=== PATIENT | male | born 1960 ===

== ENCOUNTER 2018-09-14 07:03 | Inpatient (IN) | payer OTHER ==
[~2018-09-14] VITALS: Ht 185.4 cm; Wt 101.2 kg
[2018-09-14] VITALS (15 sets, daily range): BP systolic 102–130; BP diastolic 56–77
[~2018-09-14 07:03] MED LIST: AMBIEN10 MG ORAL; MICARDIS HCT 81 EACH ORAL; PAXIL40 MG ORAL; VICODIN ES 7.51 EAC1 ORAL; ZOCOR40 MG ORAL; ceFAZolin sod 1 GM in NS 55 ML IVPB ONE
[2018-09-14] MEDS ORDERED: Thrombin 5000 units TOPIC ONE ×4 (09:00→13:56)
[2018-09-14] MEDS ORDERED: LR 1000ml ONE (09:00)
[2018-09-14] MEDS ORDERED: Gelfoam Size TOPIC ONE ×2 (09:00→11:13)
[2018-09-14] MEDS ORDERED: Sterile Water Irrig 1000ml IRRIG ONE (09:00)
[2018-09-14] MEDS ORDERED: Bacitracin 50000 Units Vial ONE ×2 (09:00→11:13)
[2018-09-14] MEDS ORDERED: Bupivacaine w/Epi 0.5% 30ml Vial INJ ONE ×2 (09:00→11:13)
[2018-09-14] MEDS ORDERED: Zemuron 50mg/5ml Inj IV ONE (09:02)
[2018-09-14] MEDS ORDERED: Succinylcholine 20mg/ml 10ml vial ONE (09:03)
--- NOTE | 2018-09-14 09:12 | Pre-Procedure Note/Attestation ---
Pre-Procedure Note/Attestation Complete Prior to Procedure Procedure Narrative: L23 XLIF, PSF, Decompresssion/laminectomy, Hardware revision Indications for Procedure Pre-Operative Diagnosis: L23 HNP/discopathy Attestation I attest that I discussed the nature of the procedure; its benefits; risks and complications; and alternatives (and the risks and benefits of such alternatives ), prior to the procedure, with the patient (or the patient's legal sales representative jewelry). I attest that, if there was a reasonable possibility of needing a blood transfusion, the patient (or the patient's legal sales representative jewelry) was given the [facility] standardized written summary, pursuant to the [place] Blood Safety Act ([place] Health and Safety Code # 1645, as amended). I attest that I re-evaluated the patient just prior to the surgery and that there has been no change in the patient's H&P, except as documented below: Kaden Chavez MD Sep 14, 2018 09:12
--- NOTE | 2018-09-14 09:13 | Brief Operative Note ---
Immediate Post Operative Note Operative Note Pre-op Diagnosis: L23 HNP/discopathy Procedure: L23 XLIF, PSF, Decompresssion/laminectomy, Hardware revision Surgeon: addison Mat Puncher: marianela STORM Additional Surgeons: Pantera Velez Anesthesiologist: Kenny Anesthesia: general Specimen: yes Complications: none Condition: stable Fluids: 1100 Estimated Blood Loss: volume - 250 Drains: hemovac Implant(s) used?: Yes - dual lamina post fusion, RTI xlif Kaden Chavez MD Sep 14, 2018 09:13
[2018-09-14] MEDS ORDERED: LR 1000ml 1,000 ML IVLG SCH (09:14)
[2018-09-14] MEDS ORDERED: LORazepam Inj 2mg/ml 1ml IV PRN (09:15)
[2018-09-14] MEDS ORDERED: Meperidine 50mg/ml Inj(FOR RIGORS ONLY) IVP PRN (09:15)
[2018-09-14] MEDS ORDERED: Acetaminophen (Non formulary) 100 ML IV ONE (09:15)
[2018-09-14] MEDS ORDERED: Metoclopramide 10mg/2ml Inj IVP PRN (09:15)
[2018-09-14] MEDS ORDERED: fentaNYL 100 mcg/2 mL IV PRN (09:15)
[2018-09-14] MEDS ORDERED: oxyCODONE HCL/Acetaminophen 5/325mg ORAL PRN (09:15)
[2018-09-14] MEDS ORDERED: DiphenhydrAMINE 50mg/ml Inj IVP PRN (09:15)
[2018-09-14] MEDS ORDERED: Atropine Sulfate 0.4mg/ml inj IVP PRN (09:15)
[2018-09-14] MEDS ORDERED: HYDROcodone/Acetamin 5/325 tab ORAL PRN (09:15)
[2018-09-14] MEDS ORDERED: Ketorolac 30mg Inj IV PRN ×2 (09:15)
[2018-09-14] MEDS ORDERED: Midazolam 2mg/2ml Inj IVP PRN (09:15)
[2018-09-14] MEDS ORDERED: HYDROcodone/Acetamin 7.5/325 tab ORAL PRN (09:15)
[2018-09-14] MEDS ORDERED: Hydromorphone 0.5mg/0.5ml inj IVP PRN ×2 (09:15→17:45)
[2018-09-14] MEDS ORDERED: NS Irrig 1000ml IRRIG ONE ×2 (09:16→14:22)
--- NOTE | 2018-09-14 09:22 | Anethesia Preoperative Eval ---
Anesthesia Pre-op PMH/ROS General Date of Evaluation: Sep 14, 2018 Time of Evaluation: 09:11 Anesthesiologist: Uziel ASA Score: ASA 3 Mallampati Score Class I : Soft palate, uvula, fauces, pillars visible Class II: Soft palate, uvula, fauces visible Class III: Soft palate, base of uvula visible Class IV: Only hard plate visible Mallampati Classification: Class II Surgeon: Scott Diagnosis: Back Pain Surgical Procedure: XLIF L2-3, PSF L2-4, instrutrumentation Anesthesia History: none Family History: no anesthesia problems Allergies: Coded Allergies: AMMONIUM CHLORIDE (Verified Allergy, Mild, 09/14/18) LIGHT HEADED Uncoded Allergies: AMMONIA (Adverse Reaction, Severe, 09/14/18) WEAKNESS AND LIGHT HEADED Medications: see eMAR Patient NPO?: Yes NPO Date: Sep 13, 2018 NPO Time: 2100 Past Medical History Cardiovascular: Reports: HTN, other - HL Pulmonary: Reports: KAN Endocrine: Reports: DM Other: obesity - BMI 31 PSxH Narrative: Cervical, Thoracic, Lumbar Spine SX-Multiple, Umbilical Hernia Repair, L Shoulder Replacement, Bilateral Knee SX Anesthesia Pre-op Phys. Exam Physician Exam Last Vital Signs Date Time Temp Pulse Resp B/P (MAP) Pulse Ox O2 Delivery O2 Flow Rate FiO2 09/14/18 07:55 Room Air 09/14/18 07:50 97.3 67 20 122/77 (92) 96 Constitutional: NAD Neurologic: CN 2-12 intact Cardiovascular: RRR Respiratory: CTA Gastrointestinal: S/NT/ND Airway Exam Mallampati Score: Class II MO: full ROM: limited Teeth: intact Anesthesia Pre-op A/P Risk Assessment & Plan Assessment: ASA 3 Plan: GA, SED, Glidescope Go Status Change Before Surgery: No Pre-Antibiotics Dru grams Ancef IV Given Within 1 Hr of Incision: Yes Time Given: 09:46 Silverio Triplett MD Sep 14, 2018 09:22
[2018-09-14] MEDS ORDERED: Lidocaine 1% MPF 10mg/ml 5ml ONE (09:23)
[2018-09-14] MEDS ORDERED: Ketamine 500mg Inj ONE (09:23)
[2018-09-14] MEDS ORDERED: Sodium Chloride 10ml vial INJ ONE (09:23)
[2018-09-14] MEDS ORDERED: fentaNYL 100 mcg/2 mL IV ONE ×3 (09:23→15:09)
[2018-09-14] MEDS ORDERED: Lidocaine 1% Plain 30 ml INJ ONE ×2 (09:41→13:28)
[2018-09-14] MEDS ORDERED: Propofol 1,000mg/ 100ml btl IV ONE (10:00)
[2018-09-14] MEDS ORDERED: Vancomycin 1gm vial IVPB ONE (14:55)
--- NOTE | 2018-09-14 15:45 | Diagnostic Imaging Report ---
INDICATION: Pain, intraoperative, left lower extremity pain TECHNIQUE: Intraoperative imaging Fluoroscopy time: 46.5 seconds Total dose: 0.95699 mGym2 Total number of images: 6 9 COMPARISON: None FINDINGS: Sales Apprentice images demonstrate posterior fusion hardware bridging what are presumably L3 and L4, anterior fusion hardware at L3-4, L4-5, L5-S1. Subsequent images demonstrate removal of the posterior hardware and placement of an interspinous fusion device at L2-3, placement of disc hardware at L2-3 IMPRESSION: Intraoperative imaging, as described
--- NOTE | 2018-09-14 16:10 | Immediate Post-Op Evaluation ---
Immediate Post-Op Evalulation Immediate Post-Op Evalulation Procedure: XLIF L2-3, PSF L2-3, Instruments Date of Evaluation: Sep 14, 2018 Time of Evaluation: 16:20 IV Fluids: 1100 LR Blood Products: 0 Estimated Blood Loss: 200 Urinary Output: 250 Blood Pressure Systolic: 111 Blood Pressure Diastolic: 58 Pulse Rate: 83 Respiratory Rate: 16 O2 Sat by Pulse Oximetry: 98 Temperature (Fahrenheit): 97.3 Pain Score (1-10): 2 Nausea: No Vomiting: No Complications 0 Patient Status: awake, reacts, patent, extubated, none Hydration Status: adequate Dru Grams Ancef IV Given Within 1 Hr of Incision: Yes Time Given: 09:46 Silverio Triplett MD Sep 14, 2018 16:10
--- NOTE | 2018-09-14 17:15 | NUR ---
NURSE NOTES:RECEIVED FR. PACU S/P ELECTIVE BACK SURGERY,A/OX4,MOVING ALL EXTREMITIES,BACK DRSNG C/D/I.HEMOVAC DRAINING S/S,SANDERS INTACT WITH YELLOW URINE,IV SITE INTACT,O2 AT 2LITERS N/C.PLAN OF CARE DISCUSSED WITH UNDERSTANDING.
[2018-09-14] MEDS: Docusate 100mg cap ORAL SCH (18:00)
[2018-09-14] MEDS: ceFAZolin 1gm in D5W 55ml IVP SCH (18:52)
[2018-09-14] MEDS: D5 1/2NS 1,000 ML IV SCH (18:52)
--- NOTE | 2018-09-14 19:30 | NUR ---
HAND-OFF: Report given to [].
--- NOTE | 2018-09-14 19:30 | NUR ---
HAND-OFF: Report given to RAVIN ARENAS.
--- NOTE | 2018-09-14 20:02 | Operative Note - Dictated ---
DATE OF OPERATION: 09/14/2018 CO-SURGEONS: 1. González Velez M.D. (for the approach). 2. Kaden Chavez M.D. (for the spine procedure). ANESTHESIOLOGIST: Silverio Triplett M.D. ANESTHESIA: General endotracheal. PREOPERATIVE DIAGNOSIS: 1. Disk disease, L2-L3 (1 interspace). 2. Status post multiple previous lumbar spine surgeries. POSTOPERATIVE DIAGNOSES: 1. Disk disease, L2-L3 (1 interspace). 2. Status post multiple previous lumbar spine surgeries. OPERATIVE PROCEDURE: 1. Muscle-sparing extraperitoneal extreme lateral interbody fusion, L2-L3 (1 interspace) Right Lateral Approach. 2. Transpsoas exposure of the lateral surface of the spine at L2-L3. 3. Mobilization of right diaphragm. 4. Resection of the right eleventh rib. INFORMED CONSENT: The procedure of access for an extreme lateral interbody fusion was explained in detail to the patient preoperatively via the phone and repeated in the preoperative holding area by myself and Dr. Chavez. The risks including hemorrhage, infection, ureteral injury, visceral injury, nerve injury, and pneumothorax were explained. The patient stated that he understood the procedure, its rationale, and risks. He had no further questions and accepted the procedure as outlined above. BACKGROUND INFORMATION: Indications for surgery, description of operative findings, and specimens removed will be contained in Dr. Chavez's operative report. OPERATIVE FINDINGS PERTINENT TO THE ACCESS: All retroperitoneal structures were normal. DESCRIPTION OF PROCEDURE: The patient was brought to the operating room in stable condition. Monitoring was instituted with arterial line, ECG, O2 saturation monitor, and blood pressure cuff. A right foot pulse oximeter was placed to monitor circulation to the right lower extremity. The patient was induced anesthesia without any difficulty. The patient was placed in the left lateral decubitus position for a right lateral incision. The patient was prepared and draped in sterile fashion. Under fluoroscopic guidance, the level of the L2-L3 disk was marked on the skin. A transverse incision was made at the appropriate level as determined by fluoroscopy. The subcutaneous tissue was divided using electrocautery. The fascia of the latissimus dorsi and external oblique muscles was incised with cautery. Using a muscle-sparing technique, the fibers of the latissimus dorsi, external and internal oblique muscles were in the direction of their fibers. The right eleventh rib was resected subperiosteally and saved for graft material. The transversus abdominis fibers were in similar fashion. The transversalis fascia was entered without any difficulty revealing the extraperitoneal space and diaphragmatic fibers. The diaphragmatic fibers were bluntly from the lateral abdominal and chest wall. Using blunt dissection, the quadratus lumborum muscle was palpated and the psoas muscle was identified. The approach was well below the diaphragm and there was no concern of pneumothorax. Once the dissection was completed and the quadratus lumborum and psoas muscles were identified, the fibers of the psoas muscle were using a muscle-sparing technique. The disk was identified. Using neural monitoring to confirm that there were no nerves in the immediate area, a K-wire was inserted into the disk. Using the dilator system with neural monitoring, the appropriate access to the L2-L3 disk was created. The retractor system was deployed over the dilators. Under fluoroscopic guidance, the midportion of the disk and the appropriate level were confirmed. Neural monitoring was used and showed no nerves in proximity to the area. Once the system was deployed, Dr. Chavez proceeded to perform the diskectomy, partial vertebrectomy, and fusion using the appropriate technique and hardware. Once this was completed, the retractor system was removed. Inspection was carried out for hemostasis while gradually removing the retractor system. Once the retractor system was removed, the peritoneum came back to its normal anatomic position. The muscle layers came back to their normal anatomic position from the psoas muscle until the external oblique and latissimus dorsi muscles superficially. There was no indication of pneumothorax. The muscle layers were closed with a continuous suture of #1 PDS II for the diaphragmatic fibers and the muscle layers. A subcutaneous/subdermal closure with a continuous suture of 2-0 Vicryl was accomplished. The skin was closed in a subcuticular fashion. Steri-Strips and a sterile dressing were applied. Estimated blood loss was minimal and less than 30 mL. Manual and visual sweeps were correct. Final sponge, needle, and instrument counts were verified as correct x2. Breath sounds were excellent bilaterally. The patient remained in the operating room, under anesthesia, in stable condition for the posterior portion of the procedure. The foot pulse oximeter showed 100% oxygen saturation with normal triphasic waveform consistent with preoperative baseline. Dorsalis pedis and posterior tibial pulses were +2 bilaterally symmetrical. González Velez M.D. DR: Phyllis JOB#: [id number] CC: Kaden Chavez M.D.; Fax#: [phone] [facility]
[2018-09-14] MEDS ORDERED: Chloraseptic Spray 20mL Bottle ORAL PRN (21:00)
[2018-09-14] MEDS ORDERED: Zolpidem 5mg tab ORAL PRN ×2 (21:00→21:15)
[2018-09-14] MEDS ORDERED: HYDROmorphone 1mg/ml Carpuject SUBQ SCH (21:13)
--- NOTE | 2018-09-14 21:16 | Operative Note - Dictated ---
DATE OF OPERATION: 09/14/2018 SURGEON: Kaden Chavez M.D. CREDIT ASSESSMENT ANALYST: Bryce Arizmendi PA-C. ADDITIONAL SURGEON/CO-SURGEON: González Velez M.D. ANESTHESIOLOGIST: Silverio Triplett M.D. ANESTHESIA TYPE: General endotracheal anesthesia. PREOPERATIVE DIAGNOSIS: Status post prior fusion, L3 through S1, with catastrophic discogenic collapse, extrusion, and radiculopathy, L2-L3. OPERATION PERFORMED: 1. Extreme lateral interbody fusion, L2-L3, approach through right side. 2. Placement of structural PEEK (RTI) cage, L2-L3. 3. Use of local autograft. 4. Use of BMP. 5. Use of Signafuse allograft. 6. Use of fluoroscopy. INDICATIONS: The patient is very pleasant gentleman who previously underwent first L4-L5 and L5-S1 fusion and subsequently had hardware removal. He subsequently had catastrophic discogenic collapse at L3-L4, underwent prior XLIF/PSF several years ago and now the L2-L3 level has completely collapsed with a large disk extrusion at that level, asymmetric scoliosis at the L2-L3 level. Surgical options were discussed and he elected to proceed with surgical intervention. RISK NOTE: The patient was explained in detail risks and benefits of surgery to include but not be limited to those of bleeding, infection, damage to nerves/vessels/tendons, anesthetic risk, allergic reaction, aspiration, possibly . The patient understood and wished to proceed. OPERATIVE PROCEDURE IN DETAIL: The patient was taken to the operating suite. After general endotracheal anesthesia was obtained, Rawls catheter was placed. He was positioned right side-up lateral decubitus position. The lateral exposure will be dictated separately by Dr. Velez, the Cardiothoracic team. Once the lateral exposure had been completed and exposure of the L2-L3 level was achieved, dilators were put in place and retractor was put in place. The disk space was identified and with the use of a 10 blade, fenestration of the lateral anulus was performed. At this point, rotating frank, down-pushing curettes, endplate cuffs were used to remove additional disk fragments from inside the disk. An endplate Sanchez was then introduced all the way to the far end of the disk on the contralateral left side, which was completely collapsed. It was used to osteotomize the lateral osteophytes to allow for distraction on that side. Once complete diskectomy was achieved, the appropriate-sized PEEK cage measuring 9 mm in height, 6 degrees lordosis, and 50 mm in length was chosen. It was centrally packed with combination of BMP and Signafuse as well as autograft (harvested rib), which was harvested through the exposure. At this point, once the cage was chosen and a trial was put in and noted to have excellent fit. The actual implant was inserted and noted to have excellent positioning in both AP and lateral projections with excellent correction of the scoliosis. At this point, the bone graft was packed along the lateral aspect of the disk. Closure will be dictated separately by Dr. Velez. Sponge and needle counts were correct. Kaden Chavez M.D. DR: Vito JOB#: [id number] CC: MORELIA
[2018-09-14] MEDS ORDERED: PCA Education Pamphlet MISC ONE (21:30)
[2018-09-14] MEDS ORDERED: Rate Change PCA 1 Each MISC PRN (21:30)
[2018-09-14] MEDS ORDERED: ceFAZolin 1gm/50ml Premix 50 ML IV SCH (22:00)
--- NOTE | 2018-09-14 22:00 | NUR ---
NURSE NOTES: MD saw patient. New orders placed. COMMERCIAL SALES SPECIALIST morphine ordered 07/16/19, with a one time Dilaudid injection. Patient given instruction packet regarding COMMERCIAL SALES SPECIALIST use. RN gave demonstration for use.
[2018-09-14] MEDS: Atorvastatin 20mg tab ORAL SCH (22:06)
[2018-09-14] MEDS: PCA Morphine 1mg/ml 30 ML IV PRN (22:32)
--- NOTE | 2018-09-14 22:45 | Operative Note - Dictated ---
DATE OF OPERATION: 09/14/2018 SURGEON: Kaden Chavez M.D. PREOPERATIVE DIAGNOSES: Status post prior fusion, L3 through S1 with catastrophic disk collapse at L2-L3 resulting in disk extrusion, left lower extremity radiculopathy, and status post XLIF procedure, L2-L3. POSTOPERATIVE DIAGNOSES: Status post prior fusion L3 through S1 with catastrophic disk collapse at L2-L3 resulting in disk extrusion, left lower extremity radiculopathy, and status post XLIF procedure, L2-L3. PROCEDURES: 1. Wide and radical laminectomy, left side, redo performed through scarred and altered anatomy, L2-L3. 2. Thorough diskectomy and decompression of nerve root and neurolysis, L2-L3, left side. 3. Removal of hardware, L3-L4 pedicle screws (Alphatec). 4. Posterior spinal fusion, L2-L3. 5. Interspinous nonsegmental fixation, L2-L3. 6. Use of operating microscope. 7. Neurodiagnostic monitoring. 8. Use of fluoroscopy. TOTAL FLUIDS: 1100. ESTIMATED BLOOD LOSS: 250. DRAINS: Hemovac drain was placed. INDICATIONS: The patient is a 57-year-old with extensive problems with his lower back, status post prior fusion with an XLIF performed earlier in the day, requiring a decompression, left L2-L3 and posterior fusion to back up his XLIF. The patient understood and wished to proceed. RISK NOTE: The patient was explained in detail risks, benefits of surgery to include, but not be limited to those of bleeding, infection, damage to nerves, vessels, tendons, anesthetic risk, allergic reaction, aspiration, and possibly . The patient understood and wished to proceed. OPERATIVE PROCEDURE IN DETAIL: The patient was taken to the operative suite. Under the benefits of general anesthesia, the patient was turned from a lateral position into a prone position onto a Ed frame. All bony prominences were well padded. The back was prepped and draped in the usual sterile fashion. Prior incision was identified and infiltrated with Marcaine with epinephrine. The incision was extended incorporating the top one-third of the prior incision as well as an additional inch and a half. Incision was sharply carried down through the subcutaneous. Subperiosteal dissection was carried out at L2-L3. Care was taken to identify the screw heads at L3 and L4 through an oblique approach to the screw heads. Self-retaining retractors were put into place. The screw heads were then systematically disengaged from the chrystal. The rods were removed, and the screws were backed out without complication first on the left, then on the right at L3 and L4 bilaterally. This area was then irrigated and packed off. Attention was then turned to the left side. There was noted to be a remnant of the spinous process at L3. Initially, the plan was to place new pedicle screws at L2 and L3. However, due to hypoplastic pedicles, and the presence of a spinous process at L3 and L2, we decided to place interspinous fixation rather than new pedicle screw fixation. At this point, the right side was first addressed. All bony landmarks were then drilled and denuded of soft tissue. The facet joint was then drilled out. This area was packed off after being irrigated and attention was then turned to the left side. At this point, in a similar fashion, soft tissue was removed off of the lamina of L2 and L3 as well as the facet joint. High-speed drill was used to perform laminectomy at L2 and superior portion of L3 as well as a very significant medial facetectomy. At this point, the ligamentum flavum was removed in a piecemeal fashion. The dura, which was highly compressed and the area was markedly aberrant in anatomy due to the exceedingly large disk herniation was gently retracted medially. After multiple passes, we were able to identify the scarified extruded disk fragment, which was removed in a piecemeal fashion. There was extensive soft tissue induration and a complete diskectomy could not be achieved; however, clearly the central compression as well as the left lateral compression was completely decompressed. We were able to then probe the neural foramen at L2-L3 without compromise. Copious irrigation was performed and FloSeal was performed. At this juncture, the interspinous fixation was chosen and 11 mm interspinous dual lamina fixation device was chosen and deployed after a bed of bone graft was delivered onto the right side as an onlay of the laminar region. The dual lamina was deployed and compressed with excellent bony purchase and fixation and was locked and torqued to the appropriate level. At this point, copious irrigation once again was performed. Additional bone graft was placed on the right side. FloSeal was applied. Meticulous hemostasis was achieved. Prior to closure, it was decided to place a medium-sized Hemovac drain deep to the fascia. Fascia was repaired using #1 Vicryl and subcutaneous closure using 2-0 Vicryl. Please note that both infra and suprafascial placement of vancomycin powder 1 g in total was applied. Sterile dressing was applied. At the time of this dictation, the patient was awaiting extubation. [facility] Vahid Chavez DR: KAM JOB#: [id number] CC:
--- NOTE | 2018-09-14 23:14 | NUR ---
NURSE NOTES: Report taken from JOHN Bermudez. Patient awake and in bed, A&Ox4. No signs of distress on 2L/hr NC. Surgical sites on Rt side and posterior, c/d/i. No further skin issues. IV site c/d/i and running IVF at 100mls/hr. Patient complains that he would like to advance diet, he has not eaten since the day prior before surgery, will contact MD. Hemovac c/d/i and draining serous fluid, continue to monitor. Bed in lowest position, call light within reach.
[2018-09-15] VITALS: BP 121/78
--- NOTE | 2018-09-15 01:00 | Consultation ---
DATE OF CONSULTATION: 09/15/2018 CONSULTING PHYSICIAN: Rishabh Knight M.D. REFERRING PHYSICIAN: Kaden Chavez M.D. REASON FOR CONSULTATION: Acute pain consult. HISTORY OF PRESENT ILLNESS: Dear Dr. Kaden Chavez, Thank you kindly for consulting me to evaluate and render an opinion as to how to proceed in the management of the patient's acute postoperative lumbar spine pain after his revision lumbar spine instrumentation surgery today. 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 Today, he underwent a revision lumbar spine fusion surgery with instrumentation and complained of severe 10/10 pain postoperatively. On your request, I saw the patient to help with his pain control. I performed a detailed history and physical examination. I spent over 75 minutes in consultation with an additional 30 minutes in medical record review. I spoke with the hospital pharmacist, Jeremy, along with yourself, Dr. Chavez and the charge nurse, along with the recovery room nurse. I reviewed multiple records from the patient's medical chart including utilization review and surgical authorization by Gene authorizing revision lumbar spine fusion surgery is authorized. Multiple records were reviewed including preoperative history and physical by Dr. Jamar Jennings in September 2018 along with diagnostic testing of laboratory studies, a 12-lead EKG, chest x-ray, and lumbar spine MRI. Multiple records were reviewed from today's date of surgery at [facility] including consent for surgical treatment, consent for anesthesia, consent for blood products, medication administration record, medication reconciliation order form, PACU record, PACU orders, anesthesia record, pre- and post anesthesia evaluation record, implant log, guidelines for prophylactic antibiotics, guidelines for DVT prophylaxis, Lilia for causing disability, postoperative spine surgical orders, and postoperative surgery report by Dr. Kaden Chavez. PAST MEDICAL HISTORY: 1. Acute postoperative lumbar spine pain, status post revision lumbar spine fusion surgery with instrumentation. Revision by Dr. Kaden Chavez in September 2018. 2. Work-related injury. 3. Multiple previous spinal orthopedic surgeries. 4. Borderline diabetes. 5. Hypercholesterolemia. 6. Chronic insomnia. 7. Depression. 8. Obstructive sleep apnea. 9. Questionable fatty liver. 10. Atrial enlargement. 11. Hypertension. MEDICATIONS AT HOME: Paxil, Ambien 10 mg, metformin, glipizide, and hydrochlorothiazide. The patient in the past has used oral morphine pills 15 mg instant release, Valium 5 mg pills, and Percocet 10 mg pills after his previous orthopedic surgery. The patient denies using any of these narcotics in the past 18 months. ALLERGIES: Ammonia and ammonium chloride. SOCIAL HISTORY: The patient lives with his Offspring, near [place]. 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 He denies tobacco or marijuana usage. He drinks alcohol minimally. FAMILY HISTORY: Noncontributory. REVIEW OF SYSTEMS: Per Dr. Jamar Jennings. PHYSICAL EXAMINATION: VITAL SIGNS: Age 57, height 185 cm, weight 103 kg, and body mass index 30. VITAL SIGNS: Shows pain level 7/10 on the visual analog pain scale. Afebrile, pulse 98, respirations 17, blood pressure 120/74, and oxygen saturation 95%. HEENT: Nasal cannula oxygen placed. Alert and oriented x3. Moving all extremities x4, 5/5 dorsiflexion, 5/5 plantar flexion in bilateral lower extremities. NEUROLOGIC: Detailed neurologic exam per Dr. Kaden Chavez. Rawls catheter in place. CHEST: Clear to auscultation. HEART: Regular rate and rhythm. BACK: Lumbar spine with significant pain with any movement or log-rolling. Mild paraspinal muscle spasms noted. The patient appears non-toxic. LABORATORY DATA: Laboratory studies from 09/11/2018 shows glucose 188, sodium 140, potassium 4.4, chloride 101, bicarb 30, BUN 21, and creatinine 0.9. Calcium 9.4. Total protein 8.1. Albumin 4.9. AST 26, ALT 37, and alkaline phosphatase 87, total bilirubin 0.7. Glycosylated hemoglobin 6.0, white count 8, hematocrit 41, and platelets 270,000. INR 1.1. PTT 29. A 12-lead EKG shows normal sinus rhythm. Heart rate 63. Preoperative chest x-ray shows no acute cardiopulmonary disease dated 09/11/2018. MRI lumbar spine dated 08/19/2018 impression postsurgical changes from previous lumbar spine surgery L2-L3 with an 8 mm posterior disk protrusion resulting in severe spinal canal stenosis L5-S1 with a 4 mm posterior disk protrusion. IMPRESSION: 1. Acute postoperative lumbar spine pain, status post revision lumbar spine fusion surgery with instrumentation. Revision by Dr. Kaden Chavez in September 2018. 2. Work-related injury. 3. Multiple previous spinal orthopedic surgeries. 4. Borderline diabetes. 5. Hypercholesterolemia. 6. Chronic insomnia. 7. Depression. 8. Obstructive sleep apnea. 9. Questionable fatty liver. 10. Atrial enlargement. 11. Hypertension. PLAN: I took a detailed medication and narcotic history from the patient. The patient does admit that he has mild sleep apnea. I, therefore, placed him on continuous pulse oximetry overnight as I started GO GO DANCER morphine unit. The patient states that he has been on morphine GO GO DANCER in the past, which he tolerated well without respiratory problems. I did trial the patient on IV Dilaudid 0.5 mg to test for efficacy and side effects including respiratory depression. The patient shows no signs of oversedation or breathing difficulties. He did state that the Dilaudid did help somewhat, but he believes he can handle a higher dose. I will switch the route from intravenous to subcutaneous for better safety profile. I have then ordered Dilaudid 1 mg subcutaneously every three hours p.r.n. for severe pain. I have asked the nurse to give a bolus dose of this medication now as we transitioned him on to the morphine GO GO DANCER unit, which is being set up by the pharmacy department. The patient states that he has tolerated Valium in the past without problems. I will start the 5 mg dose orally every 8 hours p.r.n. for spasm or insomnia. I have ordered oxycodone instant release 10 mg orally every three hours p.r.n. for moderate pain. clarified and simplified analgesic plan is to only allow these pain medications, to avoid potentiation of respiratory depression with multiple classes of agents. I would hold off on any muscle relaxants at this time. The patient does use Ambien for sleep, but I put this dosing on a p.r.n. basis only and I have specifically spoken with the pharmacist and the nurse to wait at least 60 minutes between any doses of any sedating medications while he is here in the hospital. The patient's Paxil will be restarted for mood stabilization. I have made available Zofran as a rescue antiemetic at a dose of 4 mg intravenous every 4 hours. I have added Pepcid 20 mg for GI ulcer prophylaxis and I have also ordered a p.r.n. dose of Mylanta 30 mL q.6 hours in case of any GERD symptoms and I have ordered a dose of clonidine 0.1 mg orally every 8 hours in case of systolic blood pressure readings greater than 160 mmHg. I have ordered incentive spirometer to encourage good pulmonary toilet. In case of any itching complaints, I have ordered Benadryl 25 mg orally every 6 hours p.r.n. I will defer DVT prophylaxis to the surgeon. In case of any sore throat complaints, I have ordered Chloraseptic spray to be provided p.r.n. We will place the patient on Colace 100 mg b.i.d. In view of the patient's middle age, I will order Flomax daily to start in the morning to help reduce the risk for urinary retention issues once the Rawls catheter was removed per Dr. Chavez's orders. I will provide a prescription for Percocet and Valium for outpatient usage at a quantity of 75 and 25 tablets respectively. The patient states that he does have good access from a local [facility] with his worker's compensation insurance to fill prescriptions. Rishabh Knight M.D. DR: CORETTA JOB#: [id number] CC:
[2018-09-15] MEDS: HYDROmorphone 1mg/ml Carpuject SUBQ PRN ×5 (01:17→17:43)
[2018-09-15] MEDS: ceFAZolin 1gm in D5W 55ml IVP SCH ×2 (01:18→08:33)
[2018-09-15] MEDS: D5 1/2NS 1,000 ML IV SCH ×2 (01:26→11:26)
[2018-09-15] MEDS: oxyCODONE 5mg IR tab ORAL PRN ×2 (05:04→16:10)
[2018-09-15 05:08] VITALS: BP 137/71
--- NOTE | 2018-09-15 06:45 | Progress Note ---
DATE: 09/15/2018 ACUTE PAIN MANAGEMENT PHYSICIAN PROGRESS NOTE MEDICATIONS: Medication administration record reviewed. Medications include IV fluids, Colace, Lipitor, Pepcid, Paxil, morphine DRAGLINE OILER, and Ancef. The p.r.n. medications include Tylenol, milk of magnesia, Zofran, Benadryl, Mylanta, Chloraseptic spray, Ambien, morphine, Dilaudid, and oxycodone. LABORATORY DATA: Laboratory studies from this morning are pending. OBJECTIVE: VITAL SIGNS: Blood pressure 137/71, respirations 18, temperature afebrile, heart rate 82, and oxygen saturation . I saw the patient at the bedside. I discussed the case with the charge nurse along with Orthopedic nurse RN, aGlen. The patient tolerated advancing diet quickly overnight without any nausea symptoms. We will continue him on a regular diet with no concentrated sweets. His Hemovac drain output is considerable overnight, greater than 100 mL. Therefore, I will continue the IV fluids at this time and have ordered to check a morning hematocrit. We will follow the output the Hemovac drain as the patient advances his ambulation. A morphine DRAGLINE OILER was set up last night. The patient has tolerated this medication without any side effects. Additionally, the patient has required considerable breakthrough doses of p.r.n. pain medications including breakthrough Valium, breakthrough Dilaudid, and we will trial him on oral oxycodone currently at this time. I did leave a prescription for oxycodone and Valium for outpatient usage, which his will drop off at a local [facility] later today. We will see how the patient advances with physical therapy training. He has been compliant using his incentive spirometer. 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 Overall, the patient has been requiring considerable doses of opioid narcotics after his revision of spinal fusion surgery. We will see if the breakthrough doses of Dilaudid and oxycodone are adequate to manage his pain to enable ambulation with physical therapy. If not, a short hospital course of OxyContin may be necessary, if increased oxycodone dosing is not effective. Rishabh Knight M.D. DR: SHAZIA JOB#: [id number] CC:
[2018-09-15] MEDS: PCA shift volume MISC SCH ×2 (07:00→19:14)
[2018-09-15 07:20] LABS: BASOPHILS % (AUTO) 0.8 % (0.0-2.0); EOSINOPHILS % (AUTO) 1.2 % (0.0-3.0); HEMATOCRIT 35.2 % (42.0-52.0); HEMOGLOBIN 12.2 G/DL (14.2-18.0); MEAN CORPUSCULAR VOLUME 94 FL (80-99); MONOCYTES % (AUTO) 14.5 % (1.0-10.0); NEUTROPHILS % (AUTO) 63.6 % (45.0-75.0); PLATELET COUNT 228 K/UL (150-450); RED BLOOD COUNT 3.76 M/UL (4.70-6.10); RED CELL DISTRIBUTION WIDTH 10.6 % (11.6-14.8); WHITE BLOOD COUNT 9.9 K/UL (4.8-10.8)
--- NOTE | 2018-09-15 07:35 | NUR ---
HAND-OFF: Report given to JOHN Whitlock. Patient awake and VS stable.
[2018-09-15 08:00] VITALS: BP 130/77
--- NOTE | 2018-09-15 08:00 | NUR ---
NURSE NOTES: received report from Galen LOPEZ, pt is a DNR, a/a/o x4 laying in bed with no signs of distress or other issues at this time. IV on the Left LANDA gauge#20 heplock. pt is on a CCHO medium diet. pt is able to tolerated well with no n/v. call light within reach, bed in lowest position. side rales up x2. plan to transfer to [facility] once bed becomes available. I will f/u as needed. Addendum: 09/15/18 at 1016 by Kamlesh Mancia RN please disregard this note belong to another patient.
--- NOTE | 2018-09-15 08:00 | NUR ---
NURSE NOTES: Received report from Galen LOPEZ, pt a/a/o x4 laying in bed with no signs of distress or other issues at this time. Hemovac in place draining well, per night order selector nurse total out out during the night: 230ml. Rawls cath in place draining to gravity total out put:625ml. surgical dressings dry and intact. IV on the left hand gauge #20 running D51/2NS @100ml/hr and SMOKE INSPECTOR with Morphine. call light within reach. bed in lowest position. side rale sup x2. plan to walk with PT and to remove the Rawls once ambulate. I will f/u as needed.
[2018-09-15] MEDS: Docusate 100mg cap ORAL SCH ×2 (08:32→17:36)
[2018-09-15] MEDS: PARoxetine 20mg tab ORAL SCH (08:33)
[2018-09-15] MEDS: Tamsulosin 0.4mg cap ORAL SCH (08:33)
[2018-09-15] MEDS: PCA Morphine 1mg/ml 30 ML IV PRN (08:36)
--- NOTE | 2018-09-15 08:50 | Orthopedic Spine Progress Note ---
Ortho Spine - Progress Note Subjective Symptoms: c/o post-op back pain, improved Objective Vital Signs: Last 24 Hour Vital Signs Date Time Temp Pulse Resp B/P (MAP) Pulse Ox O2 Delivery O2 Flow Rate FiO2 09/15/18 05:08 98.1 82 18 137/71 (93) 97 09/15/18 04:30 18 09/15/18 00:15 18 09/15/18 00:00 97.6 95 17 121/78 (92) 97 09/14/18 23:45 18 09/14/18 23:15 18 09/14/18 23:00 18 09/14/18 22:45 18 09/14/18 22:30 18 09/14/18 21:00 Nasal Cannula 2.0 09/14/18 20:00 98.0 88 18 126/73 (90) 93 09/14/18 18:00 97.6 98 17 122/74 (90) 95 09/14/18 17:45 97.8 98 18 122/74 (90) 95 09/14/18 17:15 97.4 94 18 120/74 (89) 98 09/14/18 17:15 Nasal Cannula 2.0 09/14/18 17:05 97.2 93 18 114/68 96 Nasal Cannula 3 09/14/18 17:00 97.5 09/14/18 17:00 97.5 09/14/18 17:00 94 16 111/62 96 Nasal Cannula 3 09/14/18 16:50 92 15 114/64 96 Nasal Cannula 3 09/14/18 16:40 89 18 130/66 98 Nasal Cannula 3 09/14/18 16:30 83 18 113/62 98 Simple Mask 6 09/14/18 16:20 89 18 130/63 99 Simple Mask 6 09/14/18 16:15 88 19 114/62 99 Simple Mask 6 09/14/18 16:13 89 15 111/58 99 Simple Mask 6 09/14/18 16:10 83 16 98 09/14/18 16:09 97.3 86 16 102/56 98 Simple Mask 6 I&O: Intake and Output 09/14/18 09/15/18 19:00 07:00 Intake Total 2100 ml 720 ml Output Total 700 ml 855 ml Balance 1400 ml -135 ml Intake Oral 600 ml 720 ml IV Total 1500 ml Output Urine Total 400 ml 625 ml Drainage Total 100 ml 230 ml Estimated Blood Loss 200 ml Wound: clean, intact Drains: hemovac Neuro Status: other - r thigh "tight" Assessment Procedure Performed: L23 XLIF, PSF, Decompresssion/laminectomy, Hardware revision Plan Plan: PT, pain management, continue antibiotics, continue drain Kaden Chavez MD Sep 15, 2018 08:50
--- NOTE | 2018-09-15 08:53 | NUR ---
CASE MANAGEMENT:REVIEW 09/14/18 57 YR OLD MALE HERE FOR ELECTIVE SURGERY SI: DISCOPATHY IS: TO SURGERY FOR: DECOMPRESSION/LAMINECTOMY AND HARDWARE REVISION : TO MED/SURG 3 EAST POST OP INTERQUAL CRITERIA MET 09/15/18 SI: POD #1 S/P DECOMPRESSION/LAMINECTOMY AND HARDWARE REVISION 98.1 82 18 137/71 97% ON RA H/H-12.2/35.2 IS: RETANNED LEATHER ROLLER DILAUDID IV ANCEF Q8HRS PAXIL PO QD FLOMAX PO QD VALIUM PO Q8HRS PRN MUSCLE SPASMS : MED/SURG STATUS 3 EAST
--- NOTE | 2018-09-15 09:42 | 48 Hour Post Anesthesia Eval ---
Post Anesthesia Evaluation Procedure: XLIF L2-3, PSF L2-3, Instruments Date of Evaluation: Sep 15, 2018 Time of Evaluation: 07:02 Blood Pressure Systolic: 137 0: 71 Pulse Rate: 82 Respiratory Rate: 18 Temperature (Fahrenheit): 98.1 O2 Sat by Pulse Oximetry: 97 Airway: patent Nausea: No Vomiting: No Pain Intensity: 2 Hydration Status: adequate Cardiopulmonary Status: Stable Mental Status/LOC: patient returned to baseline Follow-up Care/Observations: 0 Post-Anesthesia Complications: 0 Follow-up care needed: N/A Silverio Triplett MD Sep 15, 2018 09:42
--- NOTE | 2018-09-15 11:00 | NUR ---
NURSE NOTES: RN Removed Rawls cath. pt able to tolerated procedure with no signs of distress or other issues at this time. RN will monitor for post-void. I will f/u as needed.
--- NOTE | 2018-09-15 15:07 | NUR ---
P.T Note: P.T evaluation completed and treatment initiated per spinal protocol. Please refer to P.T evaluation for current functional status. Pt will benefit from skilled P.T service to ensure safety and compliance with precautions following L-spine surgery.
--- NOTE | 2018-09-15 19:11 | Cardiology Progress Note ---
Assessment/Plan Assessment/Plan i have attmepted to se pt over the past 1 hour on several occsiaons, he remain in the bathroom still! preop data revwied will check bedside bs glucopahge will be restarted iss will be started he is eating apparently bp is ok will hold off on start on bpmed yest for nwo i will try to see him tomorrow Objective Last 24 Hour Vital Signs Date Time Temp Pulse Resp B/P (MAP) Pulse Ox O2 Delivery O2 Flow Rate FiO2 09/15/18 18:13 98.1 09/15/18 16:15 18 09/15/18 12:15 18 09/15/18 09:42 82 18 97 09/15/18 09:06 98.1 09/15/18 09:00 Nasal Cannula 2.0 09/15/18 08:45 18 09/15/18 08:15 18 09/15/18 08:00 98.1 82 20 130/77 (94) 95 09/15/18 05:08 98.1 82 18 137/71 (93) 97 09/15/18 04:30 18 09/15/18 00:15 18 09/15/18 00:00 97.6 95 17 121/78 (92) 97 09/14/18 23:45 18 09/14/18 23:15 18 09/14/18 23:00 18 09/14/18 22:45 18 09/14/18 22:30 18 09/14/18 21:00 Nasal Cannula 2.0 09/14/18 20:00 98.0 88 18 126/73 (90) 93 Intake and Output 09/14/18 09/15/18 19:00 07:00 Intake Total 2100 ml 720 ml Output Total 700 ml 855 ml Balance 1400 ml -135 ml Intake Oral 600 ml 720 ml IV Total 1500 ml Output Urine Total 400 ml 625 ml Drainage Total 100 ml 230 ml Estimated Blood Loss 200 ml Laboratory Tests Test 09/15/18 06:40 White Blood Count 9.9 K/UL (4.8-10.8) Red Blood Count 3.76 M/UL (4.70-6.10) L Hemoglobin 12.2 G/DL (14.2-18.0) L Hematocrit 35.2 % (42.0-52.0) L Mean Corpuscular Volume 94 FL (80-99) Mean Corpuscular Hemoglobin 32.5 PG (27.0-31.0) H Mean Corpuscular Hemoglobin Concent 34.7 G/DL (32.0-36.0) Red Cell Distribution Width 10.6 % (11.6-14.8) L Platelet Count 228 K/UL (150-450) Mean Platelet Volume 7.2 FL (6.5-10.1) Neutrophils (%) (Auto) 63.6 % (45.0-75.0) Lymphocytes (%) (Auto) 20.0 % (20.0-45.0) Monocytes (%) (Auto) 14.5 % (1.0-10.0) H Eosinophils (%) (Auto) 1.2 % (0.0-3.0) Basophils (%) (Auto) 0.8 % (0.0-2.0) Sebastian Rodriguez MD Sep 15, 2018 19:11
[2018-09-15] MEDS ORDERED: metFORMIN 500mg tab ORAL SCH (19:30)
[2018-09-15 20:00] VITALS: BP 137/84
--- NOTE | 2018-09-15 20:04 | NUR ---
HAND-OFF: Report given to Kelly LOPEZ. pt in stable condition. RN also endorsed to incoming nurse to monitor patient post Rawls cath void. I&O's Total Hemovac out put: 180ml.
--- NOTE | 2018-09-15 20:05 | NUR ---
NURSE NOTES: Received report & pt from JOHN Whitlock. Pt up in chair, a&ox4, in room air. No s/s of acute distress & c/o 01/13 pain. Hemovac intact & compressed. Surgical dressings both stained but dry & intact. IV site intact with IVF running as ordered. Bed in lowest position, call light & DRY CANS OPERATOR pump within reach. Will continue to monitor.
--- NOTE | 2018-09-15 20:06 | NUR ---
NURSE NOTES: Pt able to urinate 250ml yellow urine output without pain.
[2018-09-15] MEDS: Atorvastatin 20mg tab ORAL SCH (20:12)
[2018-09-15] MEDS: Zolpidem 5mg tab ORAL PRN (23:17)
[2018-09-16] VITALS: BP 125/84
[2018-09-16] MEDS: PCA Morphine 1mg/ml 30 ML IV PRN (00:19)
--- NOTE | 2018-09-16 01:00 | NUR ---
NURSE NOTES: Pt urinated 200 ml yellow urine output
[2018-09-16 04:00] VITALS: BP 138/75
[2018-09-16] MEDS: HYDROmorphone 1mg/ml Carpuject SUBQ PRN ×2 (04:13→20:05)
--- NOTE | 2018-09-16 04:27 | NUR ---
NURSE NOTES: Patient c/o pain in the RLQ abdomen. Not relieved by pain medications (010 dilaudid subq given, 215 roxicodone given) or SHOE REPAIR SUPERVISOR. Paged Dr Knight at approximately 0358am. Awaiting callback at this time.
--- NOTE | 2018-09-16 05:47 | NUR ---
NURSE NOTES: Called & left msg to Dr. Knight to f/u with pt's concern about his RLQ abdominal pain. Pt states, "I woke up all of a sudden with sharp burning pain. I think it's my appendix. It might also be a hernia; I had hernia surgery last time. Something is going bad" RN gave pt his Valium PRN & will give Roxicodone PRN after 1 hr for pt's pain. Will f/u again & will continue to monitor.
--- NOTE | 2018-09-16 06:00 | NUR ---
NURSE NOTES: Dr. Knight called back & asked RN, "What time did you give the Valium?" RN answered 0515 to be exact & also asked if MD wants to order KUB or anything for pt & MD replied, "No. The valium should kick in by now" Charge nurse Saundra & Levi aware.
[2018-09-16] MEDS: oxyCODONE 5mg IR tab ORAL PRN (06:16)
[2018-09-16] MEDS: PCA shift volume MISC SCH ×2 (07:29→19:20)
--- NOTE | 2018-09-16 07:30 | NUR ---
HAND-OFF: Report given to Matt Macias RN. Pt in stable condition.
--- NOTE | 2018-09-16 07:35 | NUR ---
NURSE NOTES: Patient lying in bed awake. Complain of pain 6/10 and on SITE PHYSICIAN for pain management. Will continue to monitor. Skin intact and dry. Surgical dressing intact and dry. Hemovac patent and draining well. Bed lowest position. Call light and SITE PHYSICIAN button within reach. Will continue to monitor.
[2018-09-16 08:00] VITALS: BP 139/85
--- NOTE | 2018-09-16 08:45 | Orthopedic Spine Progress Note ---
Ortho Spine - Progress Note Subjective Symptoms: c/o post-op back pain, improved - as compared to pre-op Objective Vital Signs: Last 24 Hour Vital Signs Date Time Temp Pulse Resp B/P (MAP) Pulse Ox O2 Delivery O2 Flow Rate FiO2 09/16/18 08:00 20 09/16/18 08:00 98.2 99 20 139/85 (103) 98 09/16/18 04:00 20 09/16/18 04:00 97.3 89 18 138/75 (96) 94 09/16/18 00:19 18 09/16/18 00:00 18 09/16/18 00:00 98.2 97 18 125/84 (98) 94 09/15/18 21:00 Room Air 09/15/18 20:00 97.3 99 18 137/84 (101) 95 09/15/18 20:00 18 09/15/18 18:13 98.1 09/15/18 16:15 18 09/15/18 12:15 18 09/15/18 09:42 82 18 97 09/15/18 09:06 98.1 09/15/18 09:00 Nasal Cannula 2.0 09/15/18 08:45 18 I&O: Intake and Output 09/15/18 09/16/18 19:00 07:00 Intake Total 2880 ml 1825 ml Output Total 530 ml 520 ml Balance 2350 ml 1305 ml Intake Oral 1780 ml 1000 ml IV Total 1100 ml 825 ml Output Urine Total 350 ml 450 ml Drainage Total 180 ml 70 ml # Voids 1 Wound: clean, intact Drains: hemovac Neuro Status: normal Assessment Procedure Performed: L23 XLIF, PSF, Decompresssion/laminectomy, Hardware revision Plan Plan: PT, pain management, continue antibiotics, continue drain Kaden Chavez MD Sep 16, 2018 08:45
[2018-09-16] MEDS: Tamsulosin 0.4mg cap ORAL SCH (09:01)
[2018-09-16] MEDS: Docusate 100mg cap ORAL SCH ×2 (09:01→18:05)
[2018-09-16] MEDS: metFORMIN 500mg tab ORAL SCH ×2 (09:02→18:06)
[2018-09-16] MEDS: PARoxetine 20mg tab ORAL SCH (09:02)
[2018-09-16] MEDS: Milk of Magnesia 30ml Ud ORAL PRN ×2 (10:01→16:27)
[2018-09-16 12:00] VITALS: BP 153/97
--- NOTE | 2018-09-16 12:19 | NUR ---
NURSE NOTES: Patient complained constipation. Spoke to regarding constipation. New order received. Order read back and carried out.
[2018-09-16] MEDS ORDERED: Magnesium Citrate Liq Btl ORAL ONE (13:00)
[2018-09-16 16:00] VITALS: BP 147/98
--- NOTE | 2018-09-16 19:35 | Cardiology Progress Note ---
Assessment/Plan Assessment/Plan full note dicated vf npo kub labs in am dvt pppx IS ambualte as allowed hodl oral cathartics may need enema [id number] Objective Last 24 Hour Vital Signs Date Time Temp Pulse Resp B/P (MAP) Pulse Ox O2 Delivery O2 Flow Rate FiO2 09/16/18 16:00 20 09/16/18 16:00 98.1 97 20 147/98 (114) 98 09/16/18 12:00 20 09/16/18 12:00 98.7 100 20 153/97 (115) 98 09/16/18 09:00 Room Air 09/16/18 08:00 20 09/16/18 08:00 98.2 99 20 139/85 (103) 98 09/16/18 04:00 20 09/16/18 04:00 97.3 89 18 138/75 (96) 94 09/16/18 00:19 18 09/16/18 00:00 18 09/16/18 00:00 98.2 97 18 125/84 (98) 94 09/15/18 21:00 Room Air 09/15/18 20:00 97.3 99 18 137/84 (101) 95 09/15/18 20:00 18 Intake and Output 09/15/18 09/16/18 19:00 07:00 Intake Total 2880 ml 1825 ml Output Total 530 ml 520 ml Balance 2350 ml 1305 ml Intake Oral 1780 ml 1000 ml IV Total 1100 ml 825 ml Output Urine Total 350 ml 450 ml Drainage Total 180 ml 70 ml # Voids 1 Microbiology Date/Time Source Procedure Growth Status 09/14/18 07:45 Nasal Nares MRSA Culture - Final NO METHICILLIN RESISTANT STAPH AUREUS... Complete Sebastian Rodriguez MD Sep 16, 2018 19:35
--- NOTE | 2018-09-16 19:40 | NUR ---
HAND-OFF: Report given to Kelly LOPEZ. Patient in stable condition.
--- NOTE | 2018-09-16 19:41 | NUR ---
NURSE NOTES: Received report & pt from Matt Macias RN. Pt lying in bed, a&ox4, in room air. No s/s of acute distress & c/o 01/13 pain. Hemovac intact & compressed. Surgical dressings both stained but dry & intact. IV site intact with IVF running as ordered. Bed in lowest position, call light & GLORY HOLE TENDER pump within reach. Will continue to monitor.
[2018-09-16 20:00] VITALS: BP 168/102
[2018-09-16] MEDS: Atorvastatin 20mg tab ORAL SCH (20:04)
--- NOTE | 2018-09-16 20:05 | NUR ---
NURSE NOTES: Pt's BP elevated 168/102. Clonidine PRN given for SBP>160. Also pt states he is in 8/10 pain so RN will give Dilaudid 1mg SubQ PRN. Will continue to monitor
[2018-09-16] MEDS: NovoLOG Insulin Flexpen SUBQ SCH (20:59)
[2018-09-17] VITALS (7 sets, daily range): BP systolic 128–170; BP diastolic 73–92
[2018-09-17] MEDS: HYDROmorphone 1mg/ml Carpuject SUBQ PRN ×2 (00:57→06:14)
--- NOTE | 2018-09-17 01:00 | NUR ---
NURSE NOTES: Per pt, he had large loose BM last night at around 2100 after the suppository was given. Pt states, "My stomach feels settled now"
--- NOTE | 2018-09-17 01:45 | NUR ---
NURSE NOTES: At 0055, BP still elevated 170/92, pt states he's still in 7/10 pain & Dilaudid 1mg SubQ PRN was given. Rechecked BP @ 0154 137/73
[2018-09-17] MEDS: Zolpidem 5mg tab ORAL PRN (02:35)
[2018-09-17] MEDS: NovoLOG Insulin Flexpen SUBQ SCH ×2 (06:12→11:57)
--- NOTE | 2018-09-17 06:30 | NUR ---
NURSE NOTES: Dr. Knight here to see pt & D/C'd hemovac. No bleeding noted. Pt asked if he can have the right lateral dressing also changed & per MD, "I'm going to leave it up to Dr. Chavez & the morning team. The back is the most important right now." Also per MD, ok to change diet now to regular diet. Carried out.
--- NOTE | 2018-09-17 07:23 | NUR ---
HAND-OFF: Report given to JOHN Gutierrez.
--- NOTE | 2018-09-17 07:25 | NUR ---
NURSE NOTES: Patient lying in bed awake. No complain of pain or distress at this time. Skin intact and dry. Surgical dressing intact and dry. IV dressing intact and dry. Bed lowest position. Call light within reach. Will continue to monitor.
[2018-09-17 07:36] LABS: BASOPHILS % (AUTO) 0.6 % (0.0-2.0); EOSINOPHILS % (AUTO) 1.2 % (0.0-3.0); HEMATOCRIT 30.5 % (42.0-52.0); LYMPHOCYTES % (AUTO) 12.9 % (20.0-45.0); MEAN CORPUSCULAR VOLUME 91 FL (80-99); MONOCYTES % (AUTO) 12.4 % (1.0-10.0); PLATELET COUNT 194 K/UL (150-450); RED BLOOD COUNT 3.35 M/UL (4.70-6.10); RED CELL DISTRIBUTION WIDTH 10.3 % (11.6-14.8); WHITE BLOOD COUNT 8.9 K/UL (4.8-10.8)
[2018-09-17 07:44] LABS: ALANINE AMINOTRANSFERASE 44 U/L (12-78); ALBUMIN 3.1 G/DL (3.4-5.0); ALBUMIN/GLOBULIN RATIO 0.9 (1.0-2.7); ALKALINE PHOSPHATASE 94 U/L (46-116); ANION GAP 5 mmol/L (5-15); ASPARTATE AMINO TRANSFERASE 46 U/L (15-37); BILIRUBIN,TOTAL 0.7 MG/DL (0.2-1.0); BLOOD UREA NITROGEN 11 mg/dL (7-18); CALCIUM 8.3 MG/DL (8.5-10.1); CARBON DIOXIDE 32 MMOL/L (21-32); CHLORIDE 90 MMOL/L (98-107); CREATININE 0.7 MG/DL (0.55-1.30); POTASSIUM 3.7 MMOL/L (3.5-5.1); SODIUM 127 MMOL/L (136-145)
--- NOTE | 2018-09-17 08:37 | Orthopedic Spine Progress Note ---
Ortho Spine - Progress Note Subjective Symptoms: c/o post-op back pain, improved - as compared to pre-op Objective Vital Signs: Last 24 Hour Vital Signs Date Time Temp Pulse Resp B/P (MAP) Pulse Ox O2 Delivery O2 Flow Rate FiO2 09/17/18 04:00 98.0 89 19 129/79 (96) 100 09/17/18 01:45 100 137/73 (94) 09/17/18 00:55 97.7 101 19 170/92 (118) 96 09/16/18 21:00 Room Air 09/16/18 20:05 168/102 09/16/18 20:00 97.5 107 20 168/102 (124) 91 09/16/18 16:00 20 09/16/18 16:00 98.1 97 20 147/98 (114) 98 09/16/18 12:00 20 09/16/18 12:00 98.7 100 20 153/97 (115) 98 09/16/18 09:00 Room Air I&O: Intake and Output 09/16/18 09/17/18 19:00 07:00 Intake Total 75 ml Output Total 90 ml 50 ml Balance -90 ml 25 ml IV Total 75 ml Drainage Total 90 ml 50 ml # Voids 3 6 # Bowel Movements 2 Wound: clean, intact Drains: none Neuro Status: stable Assessment Procedure Performed: L23 XLIF, PSF, Decompresssion/laminectomy, Hardware revision Plan Plan: pain management, d/c drain, discharge to home Additional Comments: dme per PT Kaden Chavez MD Sep 17, 2018 08:37
[2018-09-17] MEDS: PARoxetine 20mg tab ORAL SCH (08:52)
[2018-09-17] MEDS: Docusate 100mg cap ORAL SCH (08:52)
--- NOTE | 2018-09-17 09:55 | Diagnostic Imaging Report ---
Indication: Abdominal pain, constipation Technique: Supine view of the abdomen Comparison: none Findings: The ascending colon is distended, gas and stool-filled. The transverse colon is borderline distended, gas-filled. The remainder the colon is gas-filled, upper limits normal in caliber, gas, extending to the level of the anus. No significant fecal burden is demonstrated distally Mildly prominent gas-filled small bowel loops are also noted. Postsurgical changes of the lumbar spine are noted. The included lung bases demonstrate a hiatal hernia. There are basilar atelectatic changes Impression: Gas-filled colon which is distended proximally, but no evidence of obstructive pathology. Mildly prominent gas-filled small bowel loops. Findings are probably on the basis of postoperative ileus This agrees with the preliminary interpretation provided overnight by [facility]erad[facility] service.
[2018-09-17] MEDS ORDERED: PERCOCET 10-321 EAC1 PO (10:18)
[2018-09-17] MEDS ORDERED: VALIUM5 MG ORAL (10:19)
--- NOTE | 2018-09-17 13:09 | NUR ---
NURSE NOTES: Per pt's request called and faxed RX to pt's [facility] at [phone](P) [phone](F) s/w with intake, she stated that she will work on it. I will inform Matt LOPEZ. I will f/u as needed.
--- NOTE | 2018-09-17 13:10 | NUR ---
DISCHARGE NOTE: Pt is discharged home in stable condition by private car (friend). Pt will follow up with in 1 week. IV removed, belongings checked. Front wheel walker and raised toilet seat given as ordered upon discharge.
--- NOTE | 2018-09-17 13:13 | Progress Note ---
DATE: 09/16/2018 ACUTE PAIN MANAGEMENT PHYSICIAN PROGRESS NOTE MEDICATIONS: Medication administration record reviewed. Medications include IV fluids, Colace, Lipitor, Pepcid, Glucophage, Paxil, and Flomax. P.r.n. medications include morphine ASTRONOMY PROFESSOR, Tylenol, milk of magnesia, Zofran, Benadryl, Mylanta, Chloraseptic spray, subcutaneous Dilaudid, oxycodone, Narcan, Valium, Catapres, and Ambien. LABORATORY STUDIES: From yesterday, 09/15/2018 shows white count 10, hematocrit 35, and platelets 228,000. OBJECTIVE: VITAL SIGNS: Within normal limits. Afebrile. Pulse 100, respirations 20, blood pressure 153/97, on room air. I saw the patient at bedside with the nurse RN, Matt. Dr. Rodriguez is working with the patient's constipation issue. I spoke with the hospital pharmacist as well as the surgeon, Dr. Kaden Chavez. I saw the physical therapist, Luigi, who stated that the patient is improving his ambulation considerably. The patient is neurologically intact. The patient did have a panic attack overnight and I encouraged the nursing team to continue the p.r.m. Valium, which remains ordered at 5 mg q.8 h. p.r.n. At that time, the patient states that the morphine ASTRONOMY PROFESSOR is not effective. At other time, the patient states that he is doing just fine using the morphine ASTRONOMY PROFESSOR and does not require breakthrough doses of oxycodone or subcutaneous Dilaudid. I will continue all these p.r.n. medications as ordered and I did discuss with the patient that we will discontinue the ASTRONOMY PROFESSOR morphine as soon as the current syringe empties. The patient will then alternate between subcutaneous Dilaudid, oral oxycodone, and oral Valium for analgesia. Given the prescription for Valium and Percocet for outpatient usage. Unfortunately, the patient's was not able to visit the hospital yesterday, so the patient has not been able to drop off the prescription at the outpatient [facility] pharmacy. The patient is drinking magnesium citrate to help with postoperative constipation issues. The patient was having constipation even prior to surgery. The patient has been compliant using his incentive spirometer. The output from the indwelling lumbar spine drain catheter overnight was 70 mL. The drain has put out over 60 mL since this morning with ambulation. We will continue to keep the drain in place for now and monitor the output over the next 18 hours, hopefully likely removal tomorrow. Rishabh Knight M.D. DR: RACHEL JOB#: [id number] CC:
--- NOTE | 2018-09-17 13:13 | Consultation ---
DATE OF CONSULTATION: 09/16/2018 INTERNAL MEDICINE CONSULTATION: CONSULTING PHYSICIAN: Sebastian Rodriguez M.D. REFERRING PHYSICIAN: Kaden Chavez M.D. REASON FOR REFERRAL: Postop medical care. HISTORY OF PRESENT ILLNESS: This is a middle-aged gentleman, who was admitted to the hospital after he had surgery with Dr. Chavez. When I came back to see him yesterday, he spent several hours in the bathroom and was not able to communicate with me. Today, I had just talked with him. His main complaint was abdominal pain. He has taken some products to help him have a bowel movement and nothing is happening. He felt somewhat nauseated. He has not wanted to eat. He has passed gas, but no bowel movements. He has no chest pain. No PND. No orthopnea. Does have some dizziness when he stands up at times. PAST MEDICAL HISTORY: Positive for history of prediabetes. He has high blood pressure. He has hyperlipidemia. He has depression and insomnia. MEDICATIONS: His medications at home include Paxil 40 mg in the morning once a day, telmisartan 80/12.5 mg on a daily basis, Zocor 40 mg in the evening, metformin 500 mg 2 times daily, glipizide 5 mg 1 tablet daily, morphine sulfate 50 mg as needed 3 times a day, Valium 5 mg, Percocet 10/325 half a tablet as needed every 6 hours. REVIEW OF SYSTEMS: GASTROINTESTINAL: Positive for some nausea. No vomiting. No bowel movements. He has passed gas. GENITOURINARY: He denies. PULMONARY: He denies. CONSTITUTIONAL: He denies. NEUROLOGIC: He denies. CARDIAC: He denies. PHYSICAL EXAMINATION: GENERAL: Shows to be a middle-aged gentleman, in no respiratory distress. NECK: Supple. No jugular venous distention. LUNGS: Clear to auscultation, percussion. CARDIAC: Showed regular rate and rhythm. ABDOMEN: Somewhat distended, but soft. No guarding. No rigidity. No rebound. There are bowel sounds present. EXTREMITIES: There is no edema or clubbing or cyanosis. NEUROLOGICAL: He is awake, alert, responsive, and in no apparent respiratory distress. LABORATORY VALUES: The only available from yesterday white count 9.9, hemoglobin 12.2, and platelet count 228. No other laboratories are available. His blood sugars 268 and 260 today. He is receiving intravenous fluids at this time. ASSESSMENT AND PLAN: 1. Constipation. 2. Status post spine surgery. 3. Diabetes. 4. Hypertension. 5. Hyperlipidemia. 6. Obesity. This patient was seen in Internal Medicine consultation. The patient has only nausea. He has not had any bowel movement despite receiving some milk of magnesia and some mag citrate and we will have a KUB. He will be kept NPO for the time being except for his medications and some water. All the agents that were started last night will be discontinued in light of the fact that he is not eating. Labs will be ordered for tomorrow morning and KUB will be ordered as well. He may require the use of an enema. No further p.o. cathartics at this time until he has a bowel movement. Otherwise, cardiac farah he is doing well. His vital signs are stable. His blood pressure anywhere between 139/85 to 153/97 with heart rates in the 100, temperature 98.2. He will follow DVT prophylaxis with the use of pneumatic compression stockings and incentive spirometer will be ordered. Sebastian Rodriguez M.D. DR: JENNA JOB#: [id number] CC:
[2018-09-17] MEDS ORDERED: 1/2 NS 1000ml IV ONE (13:19)
--- NOTE | 2018-09-17 15:45 | Progress Note ---
DATE: 09/17/2018 ACUTE PAIN MANAGEMENT PHYSICIAN PROGRESS NOTE: MEDICATIONS: Medication administration record reviewed. Medications include Tylenol, Mylanta, Lipitor, Catapres, Valium, Benadryl, Colace, Pepcid, Dilaudid, Toradol, milk of magnesia, Demerol, Zofran, oxycodone, Paxil, Chloraseptic spray, Flomax, Ambien. LABORATORY STUDIES: From 09/15/2018 shows normal white count of 10, hematocrit 35, platelets 228. Vital signs within normal limits. Afebrile, pulse 89, respirations 19, blood pressure 129/79, oxygen saturation 100%. Output from the Hemovac drain overnight was 50 mL. The patient has been moving in and out of bed with regularity and improved pain. He had 2 very large bowel movements yesterday evening after multiple doses of milk of magnesia and a bottle of magnesium citrate. I will return him to regular diet as he has no nausea symptoms and his abdominal pain has resolved after his constipation issue was addressed. The patient is tolerating oral intake and has been hep-locked off of his IV fluids. He is tolerating his pain off of his RESTROOMS OR LOUNGES MAID. He has been using primarily p.r.n. oxycodone for analgesia. I will discontinue the subcutaneous Dilaudid. He will continue with oral Valium and oxycodone as primary analgesia. I did leave a prescription for both of these medications for outpatient usage. The patient states that he does have easy access to local [facility] pharmacy with his worker's compensation insurance. I will discuss later with Dr. Chavez the patient's discharge planning. The patient is amenable to discharging home to his later today. The patient has been compliant using his incentive spirometer, which remains at the bedside. He will continue with aggressive ambulation for DVT prophylaxis. With the nurse RN, Kelly at the bedside, the patient was turned to the right lateral decubitus position. I examined the lumbar spine wound showing the incision line clean and dry with DuraBond sealant intact. The drain site was clean and dry. With the Hemovac drain taken off of suction, and end-expiration, I personally removed the indwelling lumbar spine drain catheter. The tip was intact. Alcohol swab was applied generously to the drain hole site as well as to the incision line. There were few blisters from the adhesive tape. I applied sterile 6 x 6 island bordered gauze dressings to the drain hole site and incision line. There were no complications. Rishabh Knight M.D. DR: PENG JOB#: [id number] CC:
--- NOTE | 2018-09-18 10:30 | Consultation ---
DATE OF CONSULTATION: 09/17/2018 CHIEF COMPLAINT: I was asked to see this patient by Dr. Kaden Chavez and Dr. Sebastian Rodriguez for evaluation of constipation and abdominal discomfort. HISTORY OF PRESENT ILLNESS: The patient is a pleasant 57-year-old male who has been admitted for surgical repair of work related injury to his back. Postoperatively, he was noted not to have bowel movements for about four days. He became very distended and uncomfortable. This consultation was generated for this evaluation. Subsequently, he received some magnesium citrate, which weihoresulting in bowel movement. The patient feels better. There has been no nausea, vomiting, and abdomen is less distended today. The patient has had a colonoscopy by age 51. There is no family history of colonic malignancy. PAST MEDICAL HISTORY: History of back pain. FAMILY HISTORY: Noncontributory. SOCIAL HISTORY: The patient does not smoke or drink alcohol. He is . REVIEW OF SYSTEMS: Otherwise negative. PHYSICAL EXAMINATION: GENERAL: Well-developed and well-nourished man, seen in his room. HEENT: Normocephalic, atraumatic. Sclerae anicteric. Oropharynx clear. NECK: Supple. CHEST: Clear to auscultation. CARDIOVASCULAR: Revealed a regular rate. ABDOMEN: Soft, more distended, but there is no organomegaly or tenderness. EXTREMITIES: Revealed no edema. LABORATORY DATA: Noted. ASSESSMENT: This patient presents with constipation in the setting of postoperative narcotics. This issue has been addressed and I advised the patient that he can receive further laxatives as necessary in the future; however, medications such as in the setting of high-dose narcotic use to avoid narcotic-induced constipation and obstipation. The patient to maintain mobility to help promote bowel movements. He may contact me if those symptoms return. RECOMMENDATIONS: Per above discussion and per orders written in the chart. Thank you for asking me to participate in the care of this patient. Jerrod Graham M.D. DR: Marsha JOB#: [id number] CC: MORELIA
--- NOTE | 2018-09-18 11:05 | Discharge Summary ---
Discharge Summary Discharge Summary _ DATE OF ADMISSION: 09/14/2018 DATE OF DISCHARGE: 09/17/2018 DISCHARGED BY: Dr. Sebastian Rodriguez SURGEONS: Dr. Kaden Velez CONSULTANTS: Dr. 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 He was admitted on 2018 and underwent a revision of lumbar spine fusion surgery by Dr Kaden Chavez and Dr. González Velez. He tolerated procedure well. A Hemovac drain was left in place. Surgery was uneventful. Post-operatively, patient was admitted for post-op care. He was placed on SCDs for DVT prophylaxis and was encouraged use of incentive spirometer. He was seen by job service specialist and clock and watch hands painter. He was placed on LOAN PROCESSING SUPERVISOR morphine. He was given muscle relaxants. He was given stool softeners. He was seen by PT. Patient did not have any bowel movement for 2 days. He was given milk of magnesia and magnesium citrate. KUB done was negative for obstruction. Diet was advanced. Hemovac drainage decreased. Incision was clean, dry and intact. Drain was removed. Patient was ambulating well with good pain control and was tolerating diet. Patient was eventually cleared for discharge home. She was provided with DME's prior to discharge. PREOPERATIVE DIAGNOSES: Status post prior fusion, L3 through S1 with catastrophic disk collapse at L2-L3 resulting in disk extrusion, left lower extremity radiculopathy, and status post XLIF procedure, L2-L3. POSTOPERATIVE DIAGNOSES: Status post prior fusion L3 through S1 with catastrophic disk collapse at L2-L3 resulting in disk extrusion, left lower extremity radiculopathy, and status post XLIF procedure, L2-L3. OPERATIVE PROCEDURES by Dr. Chavez: 1. Wide and radical laminectomy, left side, redo performed through scarred and altered anatomy, L2-L3. 2. Thorough diskectomy and decompression of nerve root and neurolysis, L2-L3, left side. 3. Removal of hardware, L3-L4 pedicle screws (Alphatec). 4. Posterior spinal fusion, L2-L3. 5. Interspinous nonsegmental fixation, L2-L3. 6. Use of operating microscope. 7. Neurodiagnostic monitoring. 8. Use of fluoroscopy. (Refer to Operative Report) OPERATIVE PROCEDURES by Dr. Velez: 1. Muscle-sparing extraperitoneal extreme lateral interbody fusion, L2-L3 (1 interspace) Right Lateral Approach. 2. Transpsoas exposure of the lateral surface of the spine at L2-L3. 3. Mobilization of right diaphragm. 4. Resection of the right eleventh rib. (Refer to operative report) DISCHARGE DISPOSITION: Patient was discharged home. DISCHARGE MEDICATIONS: Refer to Medication Reconciliation Sheet. DISCHARGE INSTRUCTIONS: Post-op instructions given. Follow-up in a week. I have been assigned to complete a DC summary on this account, I was not involved with the patient's management. Yusra Delgadillo NP Sep 18, 2018 11:05
== END 2018-09-17 13:20 | disposition home or self-care (01) | DRG 454 ==
LOC: SDSOVERFLO 07:03 → 3E 17:24
PROC: 0SG00K1 Fusion of Lumbar Vertebral Joint with Nonautologous Tissue Substitute, Posterior Approach, Posterior Column, Open Approach (ICD-10-PCS; principal; 2018-09-14 09:30)
PROC: 0SP004Z Removal of Internal Fixation Device from Lumbar Vertebral Joint, Open Approach (ICD-10-PCS; principal; 2018-09-14 09:30)
PROC: 3E0U0GB Introduction of Recombinant Bone Morphogenetic Protein into Joints, Open Approach (ICD-10-PCS; principal; 2018-09-14 09:30)
PROC: 01NB0ZZ Release Lumbar Nerve, Open Approach (ICD-10-PCS; principal; 2018-09-14 09:30)
PROC: 0ST20ZZ Resection of Lumbar Vertebral Disc, Open Approach (ICD-10-PCS; principal; 2018-09-14 09:30)
PROC: 0SG00A0 Fusion of Lumbar Vertebral Joint with Interbody Fusion Device, Anterior Approach, Anterior Column, Open Approach (ICD-10-PCS; principal; 2018-09-14 09:30)
DX: M51.16 Intervertebral disc disorders with radiculopathy, lumbar region (principal); M48.56XA Collapsed vertebra, not elsewhere classified, lumbar region, initial encounter for fracture; E66.9 Obesity, unspecified; Z68.29 Body mass index [BMI] 29.0-29.9, adult; I10 Essential (primary) hypertension; E78.5 Hyperlipidemia, unspecified; R73.03 Prediabetes; G89.18 Other acute postprocedural pain; G47.00 Insomnia, unspecified; G47.33 Obstructive sleep apnea (adult) (pediatric); K59.00 Constipation, unspecified
CPT/HCPCS: 36415; 72020; 74018; 76000; 80053; 82962; 85025; 86850; 86900; 86901; 87081; 94003; 94150; J1815; J2405

== ENCOUNTER 2018-10-13 09:01 | Inpatient (IN) | payer OTHER ==
[~2018-10-13] VITALS: Ht 185.4 cm; Wt 107.2 kg
[2018-10-13] VITALS (14 sets, daily range): BP systolic 122–140; BP diastolic 69–81
[~2018-10-13 09:01] MED LIST changes: +PERCOCET 10-321 EAC1 PO; +VALIUM5 MG ORAL
[2018-10-13] MEDS ORDERED: METFORMIN HCL500 M1 ORAL (09:51)
[2018-10-13] MEDS ORDERED: Midazolam 2mg/2ml Inj ONE (10:08)
[2018-10-13] MEDS ORDERED: fentaNYL 100 mcg/2 mL IV ONE (10:08)
[2018-10-13] MEDS ORDERED: Thrombin 5000 units TOPIC ONE (11:20)
[2018-10-13] MEDS ORDERED: Bupivacaine w/Epi 0.5% 30ml Vial INJ ONE (11:20)
[2018-10-13] MEDS ORDERED: Gelfoam Size TOPIC ONE (11:20)
[2018-10-13] MEDS ORDERED: Vancomycin 1gm vial IVPB ONE (11:20)
[2018-10-13] MEDS ORDERED: Bacitracin 50000 Units Vial ONE ×2 (11:21→11:36)
--- NOTE | 2018-10-13 11:22 | Pre-Procedure Note/Attestation ---
Pre-Procedure Note/Attestation Complete Prior to Procedure Procedure Narrative: I&D r flank incision Indications for Procedure Pre-Operative Diagnosis: sp xlif, wound dehiscence r flank wound Attestation I attest that I discussed the nature of the procedure; its benefits; risks and complications; and alternatives (and the risks and benefits of such alternatives ), prior to the procedure, with the patient (or the patient's legal career representative). I attest that, if there was a reasonable possibility of needing a blood transfusion, the patient (or the patient's legal career representative) was given the [facility] standardized written summary, pursuant to the [place] Blood Safety Act ([place] Health and Safety Code # 1645, as amended). I attest that I re-evaluated the patient just prior to the surgery and that there has been no change in the patient's H&P, except as documented below: Kaden Chavez MD Oct 13, 2018 11:22
[2018-10-13] MEDS ORDERED: LR 1000ml ONE (11:30)
[2018-10-13] MEDS ORDERED: Zemuron 50mg/5ml Inj IV ONE (11:30)
[2018-10-13] MEDS ORDERED: Ketorolac 30mg Inj ONE (11:30)
[2018-10-13] MEDS ORDERED: NS Irrig 1000ml ONE (11:30)
[2018-10-13] MEDS ORDERED: Propofol 200mg/20ml IV ONE (11:30)
[2018-10-13] MEDS ORDERED: Succinylcholine 20mg/ml 10ml vial ONE (11:30)
[2018-10-13] MEDS ORDERED: Sterile Water Irrig 1000ml IRRIG ONE (11:30)
[2018-10-13] MEDS ORDERED: NS Irrig 1000ml IRRIG ONE (11:42)
[2018-10-13] MEDS ORDERED: Cefepime 1gm vial ONE (12:28)
[2018-10-13] MEDS ORDERED: Hydrogen Peroxide 473ml Bottle TOPIC ONE (12:35)
--- NOTE | 2018-10-13 12:39 | Anethesia Preoperative Eval ---
Anesthesia Pre-op PMH/ROS General Date of Evaluation: Oct 13, 2018 Time of Evaluation: 11:30 Anesthesiologist: Charline ASA Score: ASA 3 Mallampati Score Class I : Soft palate, uvula, fauces, pillars visible Class II: Soft palate, uvula, fauces visible Class III: Soft palate, base of uvula visible Class IV: Only hard plate visible Mallampati Classification: Class II Surgeon: Scott Diagnosis: Infected surgical wound Surgical Procedure: I&D of R lumbar surgical wound Anesthesia History: none Family History: no anesthesia problems Allergies: Coded Allergies: AMMONIUM CHLORIDE (Verified Allergy, Mild, 09/14/18) LIGHT HEADED Uncoded Allergies: AMMONIA (Adverse Reaction, Severe, 09/14/18) WEAKNESS AND LIGHT HEADED Medications: see eMAR Patient NPO?: Yes NPO Date: Oct 12, 2018 NPO Time: 1800 Past Medical History Cardiovascular: Reports: HTN; Denies: CAD, MA, valve dz, arrhythmia, other Pulmonary: Reports: KAN; Denies: asthma, COPD, other Gastrointestinal/Genitourinary: Reports: GERD; Denies: CRI, ESRD, other Neurologic/Psychiatric: Reports: depression/anxiety, other - chronic pain; Denies: dementia, CVA, TIA Endocrine: Reports: DM - on pills poorly controlled; Denies: hypothyroidism, steroids, other HEENT: Denies: cataract (L), cataract (R), glaucoma, PASCUA YAQUI (L), PASCUA YAQUI (R), other Hematology/Immune: Reports: anemia - mild; Denies: DVT, bleeding disorder, other PMH Narrative: Recent Xlift Sx significant purulent discharge in last couple days. PSxH Narrative: Multiple see H&P Anesthesia Pre-op Phys. Exam Physician Exam Last Vital Signs Date Time Temp Pulse Resp B/P (MAP) Pulse Ox O2 Delivery O2 Flow Rate FiO2 10/13/18 10:07 Room Air 10/13/18 09:33 97.5 72 18 140/78 (98) 98 Constitutional: NAD Neurologic: CN 2-12 intact Cardiovascular: RRR, no M/R/G Respiratory: CTA Gastrointestinal: S/NT/ND Airway Exam Mallampati Score: Class II MO: limited Neck: stiff ROM: limited Teeth: intact Dentures: no upper, no lower Anesthesia Pre-op A/P Labs see chart Studies Pre-op Studies: EKG - SR Risk Assessment & Plan Assessment: ASA 3 Plan: GA with ETT Status Change Before Surgery: No Pre-Antibiotics Drug: none Delvin Olivier MD Oct 13, 2018 12:39
[2018-10-13] MEDS ORDERED: Vancomycin 1 GM in D5W 275 ML IVPB SCH (12:45)
[2018-10-13] MEDS ORDERED: Hydromorphone 0.5mg/0.5ml inj IVP PRN (12:45)
[2018-10-13] MEDS ORDERED: DiphenhydrAMINE 50mg/ml Inj IVP PRN (12:45)
[2018-10-13] MEDS ORDERED: Cefepime 2gm IM ONE ×2 (12:45→13:00)
[2018-10-13] MEDS ORDERED: Acetaminophen (Non formulary) 100 ML IV ONE (12:45)
--- NOTE | 2018-10-13 12:51 | Brief Operative Note ---
Immediate Post Operative Note Operative Note Pre-op Diagnosis: sp xlif, wound dehiscence r flank wound Procedure: I&D r flank wound Post-op Diagnosis: same as pre-op Findings: consistent w/pre-op dx studies Surgeon: addison Engineering Geologist: marianela kim Anesthesiologist: sushma Anesthesia: general Specimen: yes - pre and post wash cx Complications: none Condition: stable Fluids: 800cc Estimated Blood Loss: minimal Drains: wound vac Implant(s) used?: No Kaden Chavez MD Oct 13, 2018 12:51
--- NOTE | 2018-10-13 13:15 | Immediate Post-Op Evaluation ---
Immediate Post-Op Evalulation Immediate Post-Op Evalulation Procedure: I&D of R lumbar surgical wound with woundvac placement Date of Evaluation: Oct 13, 2018 Time of Evaluation: 13:14 IV Fluids: 600 Blood Products: none Estimated Blood Loss: min Urinary Output: none Blood Pressure Systolic: 124 Blood Pressure Diastolic: 64 Pulse Rate: 72 Respiratory Rate: 20 O2 Sat by Pulse Oximetry: 99 Temperature (Fahrenheit): 97.5 Pain Score (1-10): 1 Nausea: No Vomiting: No Complications none Patient Status: awake, patent, extubated, none Delvin Olivier MD Oct 13, 2018 13:15
[2018-10-13] MEDS ORDERED: LR 1000ml 1,000 ML IVLG SCH (13:18)
[2018-10-13] MEDS ORDERED: Ketorolac 30mg Inj IV PRN (13:18)
[2018-10-13] MEDS ORDERED: Meperidine 50mg/ml Inj(FOR RIGORS ONLY) IV PRN (13:19)
[2018-10-13] MEDS ORDERED: Cefepime 2gm IV ONE (14:00)
--- NOTE | 2018-10-13 14:21 | Infectious Diseases Prog Note ---
Assessment/Plan Assessment/Plan Full consult dictated: A) 1) right flank wound infection/dehiscence - pus per D/w Dr. Chavez 2) s/p I/D 3) ? discitis/hardware infection 4) hx lumbar spine surgery and hardware P) 1) vancomycin and cefepime 2) check cultures 3) monitor labs 4) will d/w Dr. Chavez, review operative report 5) d/w Dr. Rodriguez 6) thankl you Subjective Allergies: Coded Allergies: AMMONIUM CHLORIDE (Verified Allergy, Mild, 09/14/18) LIGHT HEADED Uncoded Allergies: AMMONIA (Adverse Reaction, Severe, 09/14/18) WEAKNESS AND LIGHT HEADED Objective Vital Signs Last 24 Hour Vital Signs Date Time Temp Pulse Resp B/P (MAP) Pulse Ox O2 Delivery O2 Flow Rate FiO2 10/13/18 14:00 71 20 124/69 99 Nasal Cannula 2.0 10/13/18 13:45 68 19 134/74 99 Nasal Cannula 2.0 10/13/18 13:30 67 18 131/69 100 Simple Mask 6.0 10/13/18 13:20 71 19 136/81 100 Simple Mask 6.0 10/13/18 13:15 69 20 122/72 100 Simple Mask 6.0 10/13/18 13:15 72 20 99 10/13/18 13:10 97.8 70 20 126/70 100 Simple Mask 6.0 10/13/18 12:45 97.5 10/13/18 10:07 Room Air 10/13/18 09:33 97.5 72 18 140/78 (98) 98 Height (Feet): 6 Height (Inches): 1.00 Weight (Pounds): 237 Current Medications Medications (Trade) Dose Ordered Sig/Unruly Route PRN Reason Start Time Stop Time Status Last Admin Dose Admin Acetaminophen (Tylenol) 650 mg Q4H PRN ORAL headache or temp>101 10/13/18 13:00 11/12/18 12:59 UNV Diphenhydramine HCl (Benadryl) 25 mg Q15M PRN IVP Itching 10/13/18 12:45 10/13/18 18:00 Docusate Sodium (Colace) 100 mg TWICE A DAY ORAL 10/13/18 18:00 11/12/18 17:59 UNV Hydromorphone HCl (Dilaudid) 0.5 mg Q5M PRN IVP Severe Pain (Pain Scale 7-10) 10/13/18 12:45 10/13/18 18:00 10/13/18 13:53 Lactated Ringer's 1,000 ml @ 10 mls/hr Q24H IVLG 10/13/18 13:18 10/13/18 18:00 10/13/18 13:10 Meperidine HCl (Demerol) 25 mg Q15M PRN IV chills 10/13/18 13:19 10/13/18 18:00 Prochlorperazine (Compazine) 10 mg Q6H PRN IVP Nausea & Vomiting 10/13/18 13:00 11/12/18 12:59 UNV Sodium Chloride 1,000 ml @ 100 mls/hr Q10H IV 10/13/18 12:49 11/12/18 12:48 UNV Temazepam (Restoril) 15 mg HSPRN PRN ORAL Insomnia 10/13/18 13:00 10/20/18 12:59 UNV Vancomycin HCl (Vanco rx to dose) 1 ea DAILY PRN MISC Per rx protocol 10/13/18 13:00 11/12/18 12:59 UNV Vancomycin HCl 1 gm/Dextrose 275 ml @ 183.708 mls/hr Q24H IVPB 10/13/18 12:45 10/18/18 12:44 Sylvie Palmer MD Oct 13, 2018 14:21
--- NOTE | 2018-10-13 14:30 | NUR ---
NURSE NOTES: PATIENT ARRIVED FROM PACU ON BED AOX4. RIGHT FLANK SURGICAL WOUND VAC INTACT ATTACHED TO WOUND VAC @ 125 MM/HG. NO AIR LEAKS NOTED. Addendum: 10/13/18 at 1510 by DC ANDERS RN NURSE NOTES: PATIENT ABLE TO MOVE ALL EXTREMITIES AND LOG ROLL IN BED WITHOUT DIFFICULTY. PAIN CONTROLLED. QUESTIONS ANSWERED;NEEDS MET AT THIS TIME .PATIENT ORIENTED TO ROOM. CALL LIGHT WITHIN REACH AND INSTRUCTED HOW TO USE. BED IN LOW AND LOCKED POSITION. BELONGINGS CHECKED AND ACCOUNTED FOR WITH [facility] CARE MANAGER AT BEDSIDE.
[2018-10-13] MEDS ORDERED: Lisinopril 10mg tab ORAL SCH (15:30)
[2018-10-13] MEDS: NS w/KCl 20mEq 1,000 ML IV SCH (16:27)
[2018-10-13] MEDS ORDERED: NovoLOG Insulin Flexpen SUBQ SCH (16:30)
--- NOTE | 2018-10-13 17:53 | Diagnostic Imaging Report ---
Indication: Open wound dehiscence in the right flank, status post spinal surgery on 09/14/2018 Technique: Sagittal T1 and T2 fast spin echo, sagittal STIR, axial T1 and T2 fast spin-echo images of the lumbar spine Comparison: Upper radiograph dated 09/14/2018 Findings: At L2-3, there is a disc spacer in good position. There is an interspinous fusion device. There is prominent anterior protrusion of the epidural fat, and there is circumferential annular bulge with a peripheral disc high intensity zone. This results in narrowing of the spinal canal to 5 mm minimum AP dimension. There is degenerative proliferative change surrounding the disc. There is mild marrow edema within the adjacent L2 and L3 vertebral bodies, more striking on the T1 and on the STIR images. There is mild edema of the disc. There is a fluid collection within the adjacent right psoas muscle which measures 13 mm transverse by 12 mm AP by approximately 2 cm craniocaudad. There is inflammation of the bilateral psoas musculature extending inferior to this level. No extension of inflammation into the retroperitoneum is demonstrated. Edema and possibly a discrete fluid collection is seen posterior to the left L3 lamina and anterior to the interspinous hardware. This collection measures 9 mm AP by 11 mm transverse by 14 mm craniocaudad. Fluid is also seen surrounding the inferior extent of the hardware and the L3 spinous process. There is edema that is more generalized of the paraspinous musculature surrounding the L3 and L4 spinous processes. No definite other discrete fluid collections are evident. A focus of signal void is seen in the left paraspinous musculature at the level of the L3-4 disc. This measures approximately 12 mm in diameter, may indicate some retained metal or bone. Old screw holes are seen in L3. A surgical screw is seen entering the right lateral aspect of the L3 vertebral body, just above the disc. At the L3-4 disc, there is a disc spacer in good position. Sagittal images suggest at least partial ankylosis of the disc. No significant disc bulge or protrusion, spinal stenosis, or neural foraminal stenosis. No evidence of epidural abscess. No evidence of disc edema is demonstrated. No significant edema of the adjacent endplates There is evidence of prior L4 bilateral laminectomy. There is anterior fusion hardware at L4-5. There is a disc spacer. The sagittal images suggest ankylosis within the disc spacer. No surrounding fluid collections are demonstrated. No evidence of epidural fluid collection demonstrated. No significant disc bulge or protrusion or spinal stenosis is demonstrated. No significant disc edema is demonstrated. No edema of the adjacent endplates At L5-S1, there is anterior fusion hardware and a disc spacer. There appears to be ankylosis of the disc. Posterior osteophytes protrude in the right paracentral region but do not appear to significant compromise the spinal canal. There may be some compromise of the right lateral recess inferior to the disc. There does appear to be at least moderate narrowing of the right neural foramen. There is minimal narrowing of the left neural foramen. There is edema of the subcutaneous fat along the midline incision. There is a focal fluid collection along the incision at the L2 level, which measures 18 mm AP by 11 mm transverse by approximately 25 mm craniocaudad. Impression: Fluid collection in the right psoas muscle, as described, measuring 13 x 12 x 2 cm in diameter. There is some inflammation extending inferiorly to this but not outside the psoas. Appearance is nonspecific, could represent a routine postoperative fluid collection versus infected fluid collection. Correlate with clinical findings. Fluid collection posterolateral to the left L3 lamina, anterior to the interspinous fusion hardware. Again, possibly representing routine postoperative fluid collection versus infected collection. Generalized edema of the L2 through L4 paraspinous musculature, likely related to recent surgery. 18 x 11 x 25 mm focal fluid collection along the midline incision at the L2 level. This may represent a routine postoperative seroma versus infected collection. Edema of the L2-3 disc and adjacent endplates. Given recent surgery, most likely related to the recent surgery. Discitis/osteomyelitis are not completely excludable, and post contrast imaging may be useful if there is clinical concern for such Other postoperative changes as detailed above Moderate to severe spinal stenosis at L2-3, due to combination of circumferential annular bulge and anterior protrusion of the epidural fat Degenerative changes as detailed above Findings discussed by phone with Dr. Chavez at the time of interpretation
[2018-10-13] MEDS: Docusate 100mg cap ORAL SCH (18:02)
[2018-10-13] MEDS ORDERED: HYDROmorphone 1mg/ml Carpuject SUBQ PRN (18:35)
[2018-10-13] MEDS ORDERED: oxyCODONE 5mg IR tab ORAL PRN ×2 (18:35→18:45)
[2018-10-13] MEDS ORDERED: HYDROmorphone 1mg/ml Carpuject SUBQ SCH (18:43)
[2018-10-13 19:51] LABS: APPEARANCE,URINE CLEAR; BILIRUBIN, URINE NEGATIVE (NEGATIVE); COLOR,URINE PALE YELLOW; GLUCOSE, URINE (UA) NEGATIVE (NEGATIVE); KETONES,URINE NEGATIVE (NEGATIVE); LEUKOCYTE ESTERASE ,URINE NEGATIVE (NEGATIVE); NITRITE,URINE NEGATIVE (NEGATIVE); PH,URINE 5 (4.5-8.0); PROTEIN,URINE NEGATIVE (NEGATIVE); UROBILINOGEN,URINE NORMAL MG/DL (0.0-1.0)
--- NOTE | 2018-10-13 20:14 | NUR ---
NURSE NOTES: PATIENT REMAINS STABLE, EATING, VOIDING PER URINAL. PAIN MANAGED WITH DILAUDID ORDERED. CMS WNL. [email or web address].[email or web address]. CALL LIGHT WITHIN REACH. BED IN LOW AND LOCKED POSITION. REPORT GIVEN TO ONCOMING RN.
--- NOTE | 2018-10-13 20:17 | NUR ---
HAND-OFF: Report given to DARLENE GUTIÉRREZ RN.
--- NOTE | 2018-10-13 20:30 | NUR ---
NURSE NOTES: Pt is in bed, awake and alert. No acute distress noted. Vitals stable. Nasal Canula at 2L. Right flank wound vac site is dry and intact, no leaking, minimal serosanguineous output (10ml). Pt reports no pain. Pt is encouraged to use IS, deep breathe and cough. NS with 20mEq KCl running at 100ml/hr. Pt is tolerating PO diet well. Bed low in position,side rails up and call light within reach. Pt will be monitored. SCDs on bilaterally.
--- NOTE | 2018-10-13 20:30 | Operative Note - Dictated ---
DATE OF OPERATION: 10/13/2018 PREOPERATIVE DIAGNOSES: 1. Status post fusion XLIF L2-L3 as well as posterior spinal fusion. 2. Wound dehiscence, right flank. POSTOPERATIVE DIAGNOSES: 1. Status post fusion XLIF L2-L3 as well as posterior spinal fusion. 2. Wound dehiscence, right flank. OPERATION PERFORMED: 1. I and D, right flank. 2. Application of wound VAC. SURGEON: Kaden Chavez M.D. AUTOMATED CUTTING MACHINE OPERATOR: Bryce Davis PA-C ANESTHESIOLOGIST: Delvin Olivier M.D. ANESTHESIA TYPE: General endotracheal anesthesia. INDICATIONS: The patient is a very pleasant gentleman, complicated past history. He has undergone a number of back surgeries. Most recently, he underwent a XLIF right side with posterior spinal fusion and left-sided foraminal decompression, L2-L3. After about a week, he developed severe and excruciating pain in his left lower extremity with weakness. He was recommended to undergo surgical decompression and exploration of the fluid collection/seroma. The patient was scheduled to undergo this procedure today. On Friday, I received a call from the patient that the wound on his flank is starting to drain and thus I started him on Keflex. Today, I re-evaluated the patient in preparation for the evacuation of seroma from the back wound with redo laminectomy. He indicated that there is about 30 to 40 percent improvement of his left leg pain. However, on inspection, the right flank wound was very angry-looking with extensive purulent discharge on the dressing. I advised that he should have an incision and drainage of the right flank wound rather than potentially cross contaminate in light of an infection, his back incision, and the hardware in that location. The patient agreed that the risk outweighs the benefits of re-doing the laminectomy, especially in light of moderate improvement of his left lower extremity symptoms. We decided to change the course of action urgently due to the flank wound infection/dehiscence. RISKS NOTE: The patient was explained in detail the risks, benefits of surgery, specifically of cross contamination and possible worsening of the infection and infection seeding of the hardware. The patient elected to proceed. OPERATIVE PROCEDURE IN DETAIL: The patient was taken to the operating suite. After general endotracheal anesthesia was obtained, he was turned onto his left side down lateral decubitus onto a kaiser bag. His right flank was prepped and draped in usual sterile fashion. The prior 8 cm incision was already dehisced on the anterior one-half. I opened the remainder of the incision and palpated deep. There was a purulent discharge, which cultures were sent. I was able to then extend the incision slightly more anteriorly and there was a minimal area of tracking. However, this did not track into the retroperitoneal space. At the very least, there was no gross fistula or tracking. At this point, I was able to curettage and remove all the suture material in this area. I was able to debride down to bleeding tissue and necrotic tissue was removed. The edge of the skin incision was once again re-incised at the area of the chronic drainage as it has become very indurated. One liter triple antibiotic solution irrigation pulse lavage was used. Once the wound was cleaned, post irrigation cultures were obtained. The wound VAC was applied. The patient was then turned onto his back, awakened, extubated, and transferred to recovery room in stable condition. Kaden Vahid Chavez DR: Carlos A JOB#: [id number] CC:
[2018-10-13] MEDS ORDERED: Zolpidem 5mg tab ORAL PRN (21:00)
[2018-10-13] MEDS: Zolpidem 5mg tab ORAL PRN (21:30)
[2018-10-13] MEDS: Vancomycin 1.5gm/D5W 275ml IVPB SCH ×2 (21:30)
[2018-10-14] VITALS: BP 134/76
[2018-10-14] MEDS: Cefepime HCl 2 GM in D5W 55 ML IVPB SCH ×2 (00:15→12:55)
[2018-10-14] MEDS: HYDROmorphone 1mg/ml Carpuject SUBQ PRN ×5 (00:15→22:11)
--- NOTE | 2018-10-14 00:30 | NUR ---
NURSE NOTES: Pt ambulated to the bathroom to void, NO BM yet, Pt passing gas . Pt's pain is managed with Dilaudid 1mg subq PRN. Pt is on 2l Nasal Canula O2 sat 93-95%. Pt will be monitored.
--- NOTE | 2018-10-14 00:45 | Progress Note ---
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 Unfortunately, after he was released from the hospital without any complications, he developed postoperative infection and required return to the operating room today for incision and drainage exploration by Dr. Kaden Chavez. This patient has been using Percocet tablets 8 pills per day for quite some time with his chronic back pain and multiple previous lumbar spine surgeries. He complained of 10/10 pain postoperatively today and the surgeon, Dr. Kaden Chavez once again consulted me to help with his postoperative pain control. I saw the patient at bedside. I discussed the case with the nurse RN, Annamarie. I reviewed multiple records from the patient's previous hospitalization from September 2018 at [facility]. I reviewed multiple records from the patient's surgery from today at [facility], 10/13/2018 including records from the surgery suite including consent for surgical treatment, consent for anesthesia, consent for blood products, medication administration record, medication reconciliation record form, PACU record, PACU orders, anesthesia record, pre- and post anesthesia evaluation record. Multiple records were reviewed from the nursing and pharmacy departments as well. I spent over 75 minutes in consultation today with an additional 30 minutes in medical record review. OBJECTIVE: Vital signs, postoperatively, afebrile, pulse 80, respirations 18, blood pressure 134/78, and oxygen saturation 96% on room air. Pain level 9/10 on the visual analog pain scale. I devised the following analgesic plan to help with this patient's pain control. In light of his chronic opioid usage, I have set up 2 different doses of oxycodone. I have started with 10 mg instant release orally every three hours p.r.n. for mild pain. I have ordered 50 mg orally instant release oxycodone every three hours p.r.n. for moderate pain. I have ordered a breakthrough dose of Dilaudid 1 mg subcutaneously every three hours p.r.n. for severe breakthrough pain. I have reviewed the patient's Ambien for his chronic insomnia. The patient will be restarted on his Paxil for mood stabilization. I have asked the nurse to place an incentive spirometer at the bedside to encourage good pulmonary toilet. The patient will use sequential compression pneumatic devices utilized for DVT prophylaxis. Dr. Palmer, Infectious Disease has been consulted to help manage this patient's postoperative antibiotic usage. Rishabh Knight M.D. DR: CORETTA JOB#: [id number] CC:
[2018-10-14] MEDS: NS w/KCl 20mEq 1,000 ML IV SCH ×3 (03:26→22:10)
[2018-10-14 04:00] VITALS: BP 128/66
[2018-10-14 07:02] LABS: BASOPHILS % (AUTO) 0.8 % (0.0-2.0); EOSINOPHILS % (AUTO) 5.8 % (0.0-3.0); HEMATOCRIT 32.3 % (42.0-52.0); HEMOGLOBIN 11.3 G/DL (14.2-18.0); LYMPHOCYTES % (AUTO) 11.7 % (20.0-45.0); MEAN CORPUSCULAR VOLUME 92 FL (80-99); MONOCYTES % (AUTO) 9.6 % (1.0-10.0); NEUTROPHILS % (AUTO) 72.1 % (45.0-75.0); PLATELET COUNT 232 K/UL (150-450); RED BLOOD COUNT 3.52 M/UL (4.70-6.10); RED CELL DISTRIBUTION WIDTH 11.1 % (11.6-14.8); WHITE BLOOD COUNT 5.3 K/UL (4.8-10.8)
--- NOTE | 2018-10-14 07:15 | NUR ---
HAND-OFF: Report given to Peggy keen RN.Pt is in bed, awake and alert. No acute distress noted.
[2018-10-14 07:38] LABS: ALANINE AMINOTRANSFERASE 31 U/L (12-78); ALBUMIN 3.2 G/DL (3.4-5.0); ALBUMIN/GLOBULIN RATIO 0.9 (1.0-2.7); ALKALINE PHOSPHATASE 123 U/L (46-116); ANION GAP 8 mmol/L (5-15); ASPARTATE AMINO TRANSFERASE 23 U/L (15-37); BILIRUBIN,TOTAL 0.4 MG/DL (0.2-1.0); BLOOD UREA NITROGEN 16 mg/dL (7-18); CALCIUM 8.6 MG/DL (8.5-10.1); CARBON DIOXIDE 27 MMOL/L (21-32); CHLORIDE 105 MMOL/L (98-107); CREATININE 0.8 MG/DL (0.55-1.30); SODIUM 140 MMOL/L (136-145)
--- NOTE | 2018-10-14 07:55 | NUR ---
NURSE NOTES: Received report from Hany RN. Patient is awake alert and oriented x4, no acute distress noted. Patient reports pain is well managed at this time. Patient reports IVF running per order, wound vac to suction per MD order. Left flank assessed, no signs of infection noted, dressing clean. SCD's in place. Patient updated on plan of care for today. Side rails upx2, bed low and locked, call light in reach. Will continue to monitor.
[2018-10-14 08:00] VITALS: BP 125/69
[2018-10-14] MEDS: Docusate 100mg cap ORAL SCH ×2 (08:17→18:18)
[2018-10-14] MEDS: PARoxetine 20mg tab ORAL SCH (08:17)
--- NOTE | 2018-10-14 08:48 | Orthopedic Spine Progress Note ---
Ortho Spine - Progress Note Subjective Symptoms: improved - as compared to pre-op Objective Vital Signs: Last 24 Hour Vital Signs Date Time Temp Pulse Resp B/P (MAP) Pulse Ox O2 Delivery O2 Flow Rate FiO2 10/14/18 08:00 97.7 81 20 125/69 (87) 95 10/14/18 04:00 97.1 71 18 128/66 (86) 95 10/14/18 00:00 97.8 74 18 134/76 (95) 94 10/13/18 21:00 Nasal Cannula 2.0 10/13/18 20:00 98.3 77 18 129/71 (90) 96 10/13/18 19:31 98.0 10/13/18 17:00 98.0 80 18 134/78 (96) 96 10/13/18 16:28 131/72 10/13/18 16:00 98.1 74 18 132/77 (95) 96 10/13/18 15:30 98.6 79 18 133/76 (95) 97 10/13/18 15:00 98.0 80 18 131/73 (92) 97 10/13/18 14:30 98.2 71 18 131/74 (93) 95 10/13/18 14:30 Nasal Cannula 3.0 10/13/18 14:30 97.8 71 18 132/71 98 Nasal Cannula 2.0 10/13/18 14:23 97.8 10/13/18 14:23 97.8 10/13/18 14:15 97.8 70 19 125/70 98 Nasal Cannula 2.0 10/13/18 14:00 71 20 124/69 99 Nasal Cannula 2.0 10/13/18 13:45 68 19 134/74 99 Nasal Cannula 2.0 10/13/18 13:30 67 18 131/69 100 Simple Mask 6.0 10/13/18 13:20 71 19 136/81 100 Simple Mask 6.0 10/13/18 13:15 69 20 122/72 100 Simple Mask 6.0 10/13/18 13:15 72 20 99 10/13/18 13:10 97.8 70 20 126/70 100 Simple Mask 6.0 10/13/18 12:45 97.5 10/13/18 10:07 Room Air 10/13/18 09:33 97.5 72 18 140/78 (98) 98 I&O: Intake and Output 10/13/18 10/14/18 19:00 07:00 Intake Total 1330 ml 1130.0 ml Output Total 800 ml 160 ml Balance 530 ml 970.0 ml Intake Oral 480 ml IV Total 850 ml 1130.0 ml Output Urine Total 800 ml 150 ml Drainage Total 0 ml 10 ml # Voids 1 Wound: intact Drains: wound vac Neuro Status: unchanged from pre-op Assessment Procedure Performed: I&D r flank wound Plan Plan: continue antibiotics - per id Additional Comments: wound care nurse. i reviewed MRI ls spine likely NOT deep infection Kaden Chavez MD Oct 14, 2018 08:48
[2018-10-14] MEDS ORDERED: metFORMIN 500mg tab ORAL SCH (09:00)
[2018-10-14] MEDS: Vancomycin 1.5gm/D5W 275ml IVPB SCH ×4 (10:07→22:10)
[2018-10-14 12:00] VITALS: BP 144/86
--- NOTE | 2018-10-14 12:32 | 48 Hour Post Anesthesia Eval ---
Post Anesthesia Evaluation Procedure: I&D of R lumbar surgical wound with woundvac placement Date of Evaluation: Oct 14, 2018 Time of Evaluation: 12:31 Blood Pressure Systolic: 136 0: 74 Pulse Rate: 68 Respiratory Rate: 22 Temperature (Fahrenheit): 97.6 O2 Sat by Pulse Oximetry: 98 Airway: patent Nausea: No Vomiting: No Pain Intensity: 2 Hydration Status: adequate Cardiopulmonary Status: stable Mental Status/LOC: patient returned to baseline Follow-up Care/Observations: n/a Post-Anesthesia Complications: none Follow-up care needed: N/A Delvin Olivier MD Oct 14, 2018 12:32
--- NOTE | 2018-10-14 13:12 | NUR ---
CASE MANAGEMENT:REVIEW 57 YR OLD MALE HERE FOR SURGERY SI: RT FLANK WOUND DEHISCENCE 97.5 72 18 140/78 98% ON RA IS: TO SURGERY FOR: I & D RT FLANK WOUND W/WOUND VAC PLACEMENT : TO MED/SURG 3 EAST POST OP 10/14/18 SI: POD #1 97.7 77 20 144/86 99% ON 2L H/H-11.3/32.3 IS: IV CEFEPIME Q12 IV VANCOMYCIN Q12 IVF@100/HR PAXIL PO QD DILAUDID SQ Q3HRS PRN : MED/SURG STATUS 3 PLAN: ORDER NOTED FOR HOME HEALTH AND WOUND VAC
--- NOTE | 2018-10-14 13:23 | NUR ---
DISCHARGE PLANNING CASE MANAGEMENT NOTED ORDER FOR HOME HEALTH AND WOUND VAC SPOKE WITH A[employer]IC[employer] SCIENCES PROFESSOR, SIMÓN GR, ALL REQUEST FOR PATIENT NEEDS TO COME DIRECTLY FROM DR LYONS'S OFFICE CALLED DR LYONS'S OFFICE T: [phone] AND SPOKE WITH LUCIANO. EXPLAINED ALL OF THE ABOVE TO LUCIANO AND SHE SAID SHE WILL HANDLE TO ORDERS
--- NOTE | 2018-10-14 14:12 | NUR ---
P.T NOTE P.T EVALUATION COMPLETED. PATIENT IS BASELINE INDEPENDENT WITH ADL/FUNCTIONAL MOBILITIES AND GAIT/AMBULATION ACTIVITIES. CURRENT FUNCTIONAL STATUS DOES NOT WARRANT SKILLED P.T SERVICES AT THIS TIME. ENCOURAGED PATIENT OOB ACTIVITIES DURING STAY VS BEDREST (UNLESS ORDERED ) TO PREVENT DECONDITIONING DURING STAY. PATIENT VERBALIZED UNDERSTANDING. D/C P.T SERVICES. THANK YOU FOR THIS REFERRAL. Addendum: 10/14/18 at 1412 by GANESH ALONSO PT Amended: Links added.
--- NOTE | 2018-10-14 15:51 | Infectious Diseases Prog Note ---
Assessment/Plan Assessment/Plan Full consult dictated: A) 1) right flank wound infection/dehiscence - operative noted reviewed 2) s/p I/D 3) ? discitis/hardware infection 4) hx lumbar spine surgery and hardware P) 1) vancomycin and cefepime 2) check cultures 3) monitor labs 4) will d/w Dr. Chavez and Dr. Rodriguez Subjective Constitutional: Denies: fever HEENT: Denies: congestion Respiratory: Denies: shortness of breath Cardiovascular: Denies: chest pain Allergies: Coded Allergies: AMMONIUM CHLORIDE (Verified Allergy, Mild, 09/14/18) LIGHT HEADED Uncoded Allergies: AMMONIA (Adverse Reaction, Severe, 09/14/18) WEAKNESS AND LIGHT HEADED Objective Vital Signs Last 24 Hour Vital Signs Date Time Temp Pulse Resp B/P (MAP) Pulse Ox O2 Delivery O2 Flow Rate FiO2 10/14/18 12:32 68 22 98 10/14/18 12:00 97.7 77 20 144/86 (105) 99 10/14/18 11:11 97.7 10/14/18 09:00 Room Air 2.0 10/14/18 08:00 97.7 81 20 125/69 (87) 95 10/14/18 04:00 97.1 71 18 128/66 (86) 95 10/14/18 00:00 97.8 74 18 134/76 (95) 94 10/13/18 21:00 Nasal Cannula 2.0 10/13/18 20:00 98.3 77 18 129/71 (90) 96 10/13/18 19:31 98.0 10/13/18 17:00 98.0 80 18 134/78 (96) 96 10/13/18 16:28 131/72 10/13/18 16:00 98.1 74 18 132/77 (95) 96 Height (Feet): 6 Height (Inches): 1.00 Weight (Pounds): 236 HEENT: normocephalic, atraumatic, anicteric, mucous membranes moist Respiratory/Chest: lungs clear, normal breath sounds Cardiovascular: normal rate, regular rhythm Abdomen: normal bowel sounds, soft, non tender, no organomegaly Microbiology Date/Time Source Procedure Growth Status 10/13/18 17:30 Incision Gram Stain - Final Resulted 10/13/18 17:30 Incision Aerobic Culture Pending Resulted 10/13/18 17:30 Incision Gram Stain - Final Resulted 10/13/18 17:30 Incision Aerobic Culture Pending Resulted 10/13/18 17:30 Incision Gram Stain - Final Resulted 10/13/18 17:30 Incision Aerobic Culture Pending Resulted Laboratory Tests Test 10/13/18 16:30 10/13/18 18:18 10/14/18 06:00 Hemoglobin A1c 6.8 % (4.3-6.0) H Urine Color Pale yellow Urine Appearance Clear Urine pH 5 (4.5-8.0) Urine Specific [place] 1.015 (1.005-1.035) Urine Protein Negative (NEGATIVE) Urine Glucose (UA) Negative (NEGATIVE) Urine Ketones Negative (NEGATIVE) Urine Blood Negative (NEGATIVE) Urine Nitrite Negative (NEGATIVE) Urine Bilirubin Negative (NEGATIVE) Urine Urobilinogen Normal MG/DL (0.0-1.0) Urine Leukocyte Esterase Negative (NEGATIVE) Urine RBC 0 /HPF (0 - 0) Urine WBC 0 /HPF (0 - 0) Urine Squamous Epithelial Cells None /LPF (NONE/OCC) Urine Bacteria None /HPF (NONE) Urine Mucus Occasional /LPF White Blood Count 5.3 K/UL (4.8-10.8) Red Blood Count 3.52 M/UL (4.70-6.10) L Hemoglobin 11.3 G/DL (14.2-18.0) L Hematocrit 32.3 % (42.0-52.0) L Mean Corpuscular Volume 92 FL (80-99) Mean Corpuscular Hemoglobin 32.1 PG (27.0-31.0) H Mean Corpuscular Hemoglobin Concent 35.0 G/DL (32.0-36.0) Red Cell Distribution Width 11.1 % (11.6-14.8) L Platelet Count 232 K/UL (150-450) Mean Platelet Volume 7.4 FL (6.5-10.1) Neutrophils (%) (Auto) 72.1 % (45.0-75.0) Lymphocytes (%) (Auto) 11.7 % (20.0-45.0) L Monocytes (%) (Auto) 9.6 % (1.0-10.0) Eosinophils (%) (Auto) 5.8 % (0.0-3.0) H Basophils (%) (Auto) 0.8 % (0.0-2.0) Sodium Level 140 MMOL/L (136-145) Potassium Level 4.0 MMOL/L (3.5-5.1) Chloride Level 105 MMOL/L (98-107) Carbon Dioxide Level 27 MMOL/L (21-32) Anion Gap 8 mmol/L (5-15) Blood Urea Nitrogen 16 mg/dL (7-18) Creatinine 0.8 MG/DL (0.55-1.30) Estimat Glomerular Filtration Rate > 60 mL/min (>60) Glucose Level 136 MG/DL (74-106) H Calcium Level 8.6 MG/DL (8.5-10.1) Magnesium Level 1.9 MG/DL (1.8-2.4) Total Bilirubin 0.4 MG/DL (0.2-1.0) Aspartate Amino Transf (AST/SGOT) 23 U/L (15-37) Alanine Aminotransferase (ALT/SGPT) 31 U/L (12-78) Alkaline Phosphatase 123 U/L (46-116) H Total Protein 6.9 G/DL (6.4-8.2) Albumin 3.2 G/DL (3.4-5.0) L Globulin 3.7 g/dL Albumin/Globulin Ratio 0.9 (1.0-2.7) L Current Medications Medications (Trade) Dose Ordered Sig/Unruly Route PRN Reason Start Time Stop Time Status Last Admin Dose Admin Acetaminophen (Tylenol) 650 mg Q4H PRN ORAL headache or temp>101 10/13/18 14:54 11/12/18 14:53 Cefepime HCl 2 gm/ Dextrose 55 ml @ 110 mls/hr Q12H IVPB 10/14/18 00:00 10/21/18 00:00 10/14/18 12:55 Dextrose (Dextrose 50%) 25 ml Q30M PRN IV Hypoglycemia 10/13/18 14:54 11/12/18 14:53 Dextrose (Dextrose 50%) 50 ml Q30M PRN IV Hypoglycemia 10/13/18 14:54 11/12/18 14:53 Diphenhydramine HCl (Benadryl) 25 mg Q6H PRN ORAL Itching 10/13/18 18:45 11/12/18 18:44 Docusate Sodium (Colace) 100 mg TWICE A DAY ORAL 10/13/18 18:00 11/12/18 17:59 10/14/18 08:17 Hydromorphone HCl (Dilaudid) 1 mg Q3H PRN SUBQ Severe Breakthru Pain (>7) 10/13/18 21:35 10/20/18 21:34 10/14/18 10:41 Metformin HCl (Glucophage) 850 mg BID ORAL 10/13/18 18:00 11/12/18 17:59 10/14/18 08:17 Ondansetron HCl (Zofran) 4 mg Q4H PRN IVP Nausea & Vomiting 10/13/18 18:45 11/12/18 18:44 Oxycodone HCl (Roxicodone) 10 mg Q3H PRN ORAL Mild Pain (Pain Scale 1-3) 10/13/18 18:35 10/20/18 18:34 Oxycodone HCl (Roxicodone) 15 mg Q3H PRN ORAL Moderate Breakthru Pain (5-7) 10/13/18 18:45 10/20/18 18:44 10/14/18 14:51 Paroxetine HCl (Paxil) 40 mg DAILY ORAL 10/14/18 09:00 11/13/18 08:59 10/14/18 08:17 Sodium Chloride 1,000 ml @ 100 mls/hr Q10H IV 10/13/18 16:00 11/12/18 15:59 10/14/18 12:55 Vancomycin HCl (Vanco rx to dose) 1 ea DAILY PRN MISC Per rx protocol 10/13/18 13:00 11/12/18 12:59 Vancomycin HCl 1.5 gm/Dextrose 275 ml @ 137.5 mls/ hr Q12H IVPB 10/13/18 22:00 10/18/18 21:59 10/14/18 10:07 Zolpidem Tartrate (Ambien) 5 mg BEDTIME PRN ORAL Insomnia 10/13/18 21:00 10/20/18 20:59 10/13/18 21:30 Sylvie Palmer MD Oct 14, 2018 15:51
[2018-10-14 16:00] VITALS: BP 141/82
--- NOTE | 2018-10-14 16:51 | NUR ---
NURSE NOTES: Amanda Lara called from [facility] and verified the discharge date CN informed no discharge date yet, and Requested also if wound vac is required agency to provide to get doctor written prescription and they can deliver before discharge. for more information Amanda number [phone].
--- NOTE | 2018-10-14 18:25 | NUR ---
NURSE NOTES: Patient given dilaudid for severe pain. Pain was 8/10, accidentally charted 7/10 on patient's pain assessment, but patient's pain is 8/10. Will reassess and continue to monitor.
--- NOTE | 2018-10-14 19:34 | NUR ---
HAND-OFF: Report given to Hany RN. Patient is in stable condition.
[2018-10-14 20:00] VITALS: BP 148/93
--- NOTE | 2018-10-14 20:33 | Cardiology Progress Note ---
Assessment/Plan Assessment/Plan [id number] Objective Last 24 Hour Vital Signs Date Time Temp Pulse Resp B/P (MAP) Pulse Ox O2 Delivery O2 Flow Rate FiO2 10/14/18 18:49 98.1 10/14/18 16:00 98.1 87 20 141/82 (101) 96 10/14/18 12:32 68 22 98 10/14/18 12:00 97.7 77 20 144/86 (105) 99 10/14/18 09:00 Room Air 2.0 10/14/18 08:00 97.7 81 20 125/69 (87) 95 10/14/18 04:00 97.1 71 18 128/66 (86) 95 10/14/18 00:00 97.8 74 18 134/76 (95) 94 10/13/18 21:00 Nasal Cannula 2.0 Intake and Output 10/13/18 10/14/18 19:00 07:00 Intake Total 1330 ml 1230.0 ml Output Total 800 ml 160 ml Balance 530 ml 1070.0 ml Intake Oral 480 ml IV Total 850 ml 1230.0 ml Output Urine Total 800 ml 150 ml Drainage Total 0 ml 10 ml # Voids 1 Laboratory Tests Test 10/14/18 06:00 White Blood Count 5.3 K/UL (4.8-10.8) Red Blood Count 3.52 M/UL (4.70-6.10) L Hemoglobin 11.3 G/DL (14.2-18.0) L Hematocrit 32.3 % (42.0-52.0) L Mean Corpuscular Volume 92 FL (80-99) Mean Corpuscular Hemoglobin 32.1 PG (27.0-31.0) H Mean Corpuscular Hemoglobin Concent 35.0 G/DL (32.0-36.0) Red Cell Distribution Width 11.1 % (11.6-14.8) L Platelet Count 232 K/UL (150-450) Mean Platelet Volume 7.4 FL (6.5-10.1) Neutrophils (%) (Auto) 72.1 % (45.0-75.0) Lymphocytes (%) (Auto) 11.7 % (20.0-45.0) L Monocytes (%) (Auto) 9.6 % (1.0-10.0) Eosinophils (%) (Auto) 5.8 % (0.0-3.0) H Basophils (%) (Auto) 0.8 % (0.0-2.0) Sodium Level 140 MMOL/L (136-145) Potassium Level 4.0 MMOL/L (3.5-5.1) Chloride Level 105 MMOL/L (98-107) Carbon Dioxide Level 27 MMOL/L (21-32) Anion Gap 8 mmol/L (5-15) Blood Urea Nitrogen 16 mg/dL (7-18) Creatinine 0.8 MG/DL (0.55-1.30) Estimat Glomerular Filtration Rate > 60 mL/min (>60) Glucose Level 136 MG/DL (74-106) H Calcium Level 8.6 MG/DL (8.5-10.1) Magnesium Level 1.9 MG/DL (1.8-2.4) Total Bilirubin 0.4 MG/DL (0.2-1.0) Aspartate Amino Transf (AST/SGOT) 23 U/L (15-37) Alanine Aminotransferase (ALT/SGPT) 31 U/L (12-78) Alkaline Phosphatase 123 U/L (46-116) H Total Protein 6.9 G/DL (6.4-8.2) Albumin 3.2 G/DL (3.4-5.0) L Globulin 3.7 g/dL Albumin/Globulin Ratio 0.9 (1.0-2.7) L Microbiology Date/Time Source Procedure Growth Status 10/13/18 17:30 Incision Gram Stain - Final Resulted 10/13/18 17:30 Incision Aerobic Culture Pending Resulted 10/13/18 17:30 Incision Gram Stain - Final Resulted 10/13/18 17:30 Incision Aerobic Culture Pending Resulted 10/13/18 17:30 Incision Gram Stain - Final Resulted 10/13/18 17:30 Incision Aerobic Culture Pending Resulted Sebastian Rodriguez MD Oct 14, 2018 20:33
--- NOTE | 2018-10-14 22:00 | NUR ---
NURSE NOTES: Pt is sitting in bedside chair. No acute distress noted. Vitas stable. Wound vac in place, minimal serosanguineous drainage (5ml). Pain medication given as ordered PRN. Blood sugar 110. Pt is tolerating diet well. Room air. Pt will be monitored.
[2018-10-15] VITALS: BP 142/84
[2018-10-15] MEDS: Zolpidem 5mg tab ORAL PRN ×2 (00:40→22:45)
[2018-10-15] MEDS: Cefepime HCl 2 GM in D5W 55 ML IVPB SCH ×3 (00:40→22:45)
--- NOTE | 2018-10-15 00:45 | Progress Note ---
DATE: 10/14/2018 ACUTE PAIN MANAGEMENT PHYSICIAN PROGRESS NOTE MEDICATIONS: Medication administration record reviewed. Medications include Ambien, vancomycin, Paxil, oxycodone, Zofran, Glucophage, Dilaudid, Colace, Benadryl, and Tylenol. LABORATORY STUDIES: Laboratory studies from 10/14/2018 shows white count 5, hematocrit 32, and platelets 232,000. Sodium 140, potassium 4.0, chloride 105, bicarb 27, BUN 16, creatinine 0.8, and glucose 136. Calcium 8.6. Magnesium 1.9. Total bilirubin 0.4. AST 23, ALT 31, and alkaline phosphatase 123. Total protein 6.9. Albumin 3.2. OBJECTIVE: Afebrile, pulse 68, respirations 22, blood pressure 144/86, and oxygen saturation 98%. I saw the patient at the bedside. I discussed the case with the Infectious Disease, Dr. Palmer as well as with the charge nurse, RNDinora. I discussed the case with the nurse RN, Peggy. The patient has been moving in and out of bed well. I asked the nurse to place prune juice at the bedside to help with bowel regularity. The patient states that he did have opioid addiction problems 2 years ago, but was able to [id number] of opioids for about two years until his previous surgery several weeks ago. So, the patient states that he is very cognizant of his tendency for opioid dependency and is hoping to avoid relapse. He has been using the oral oxycodone 15 mg dosing. He did suggest to switch over the breakthrough Dilaudid from subcutaneous route to the intravenous route. In light of the patient's opioid dependency history, I explained the patient I would prefer to do the Dilaudid injection via the subcutaneous route. The patient agreed with my rationale. I will continue the 15 mg oral oxycodone dosing and will discontinue the 10 mg dosing for now. Ambien will remain available for insomnia. However, there will not be any other narcotics available such as benzodiazepines. The Paxil remains ordered for mood stabilization. The patient appears comfortable with his current situation and his current analgesic plan. Dr. Palmer and Dr. Chavez are discussing appropriate treatment for the patient's recent infection. The patient has been ambulating well, which should help for DVT prophylaxis. Rishabh Knight M.D. DR: CORETTA JOB#: [id number] CC:
--- NOTE | 2018-10-15 01:45 | Consultation ---
DATE OF CONSULTATION: 10/14/2018 INFECTIOUS DISEASE CONSULTATION CONSULTING PHYSICIAN: Sylvie Palmer M.D. ATTENDING PHYSICIAN: Kaden Chavez M.D. REFERRING PHYSICIAN: Kaden Chavez M.D. REASON FOR CONSULTATION: Right flank wound dehiscence, possible infected wound. CHIEF COMPLAINT: The patient's chief complaint coming in to the hospital is wound dehiscence, possible infected right flank wound, exploration of wounds. HISTORY OF PRESENT ILLNESS: This is a very pleasant 57-year-old male, who has a history of multiple back surgeries. He underwent an XLIF of the right side with posterior spinal fusion and decompression of L2-L3. The patient after the surgery had excruciating pain in the left lower extremity with weakness. The patient was recommended to undergo decompression aspiration of a fluid collection seroma. The patient was noted to have drainage from the wound and was started on Keflex. The patient was re-evaluated by Dr. Chavez and it showed that he had purulent drainage. The patient was admitted to [facility] and underwent incision and drainage of the right flank wound. The patient also after the incision and drainage from the right flank wound had a wound VAC. Upon reviewing the operative report, it looks like there was purulent discharge and cultures were sent. There is no gross fistula or tracking. Infectious Disease consultation is requested for antibiotic management. I saw the patient postoperatively and put on vancomycin and cefepime. Cultures from the surgery are pending. An MRI was done, which showed fluid collection in the right psoas muscle, but could be was nonspecific. There is also a fluid collection in the midline incision at L2 level which could be a postoperative seroma as well as L3 lamina collection, which again could be postoperative fluid collection versus infected collection. There was edema L2 through L3 disc, but most likely this is related to recent surgery. This MRI was from 10/13/2018. The patient will be continued on vancomycin and cefepime pending culture results. Case discussed with Dr. Chavez and also with Dr. Rodriguez. REVIEW OF SYSTEMS: CONSTITUTIONAL: Main issue is postoperative pain. It seems to be controlled. He has no fever or chills. HEAD AND NECK: No head pain or neck pain. CARDIAC: No chest pain. GASTROINTESTINAL: No nausea, vomiting, or diarrhea. GENITOURINARY: No Rawls. PULMONARY: No congestion or shortness of breath. PAST MEDICAL HISTORY: Includes a history of multiple back surgeries including recent L2 through L3 posterior spinal fusion as well as XLIF L2-L3 as well as posterior spinal fusion. He does not seem to have any history of diabetes or hypertension mentioned. He does have history of back pain in the past with multiple back surgeries as described. No history of diabetes or hypertension mentioned or cancer or heart disease in the records. It looks like he does have history of diabetes and possible hyperlipidemia. He is on anti-lipid medication and also seems possible hypertension. He is on Micardis or hydrochlorothiazide, but I am not sure if he has hypertension, but says he does have diabetes. Per the records, he does have history of hypertension, obstructive sleep apnea, gastroesophageal reflux disease, diabetes, and looks like anemia in the past also. Unclear if he has dyslipidemia. He also does have history of depression and anxiety. MEDICATIONS: Upon reviewing the MAR, the patient is on the following medications. He is on Paxil, cefepime, vancomycin, Dilaudid, Ambien, Benadryl, and Zofran. He is on oxycodone, sodium chloride, metformin, docusate, Colace, and Tylenol. Outside medications were noted and reconciliated. He was on diazepam or Valium, metformin, oxycodone, paroxetine, simvastatin, hydrochlorothiazide, and zolpidem. ALLERGIES: Include ammonium chloride and ammonia. FAMILY HISTORY: Noncontributory. SOCIAL HISTORY: Negative for smoking, alcohol, or drug abuse. 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 PHYSICAL EXAMINATION: VITAL SIGNS: Temperature is 97.7, pulse rate is 68, respiratory rate 22, he is saturating 98%, and blood pressure 144/86. GENERAL: The patient is alert, responsive, and in no acute distress. Pain seems to be controlled. He is alert and oriented x3. HEAD AND NECK: Oral exam, no thrush. Eye exam, no icterus. Normocephalic. Neck is supple. HEART: Regular. No obvious gallop or murmur. ABDOMEN: Soft. Positive bowel sounds. Nontender. LUNGS: Clear bilaterally. No rhonchi or rales. SKIN: No rash. MUSCULOSKELETAL: No effusion. Legs are without cellulitis. PERIPHERAL VASCULAR: No cyanosis. He has a wound VAC over the right flank area in between the back and trunk area. No cellulitis surrounding it. No gangrene. NEUROLOGIC: Intact. Alert and oriented x3. LINE SITES: Line sites without phlebitis. GENITOURINARY: He has no Rawls. No CVA tenderness. LABORATORY DATA: Laboratory data is as follows. Creatinine 0.8. White count 5.3 and hemoglobin 11.3. UA is negative. Wound culture from the surgery is pending. MRI was reviewed of the lumbar spine. This was on 10/13/2018. It showed the following. It showed fluid collection in the right psoas muscle, nonspecific. It showed fluid collection in the L3 lamina and L2 level also, could be postoperative seroma versus infected fluid collection, and also showed edema at L2-L3 again most likely related to recent surgery per the report. Could not exclude osteo diskitis. Upon reviewing the orthopedic surgery notes, it was felt that the MRI spine likely not deep infection per the records. Cultures from the surgery pending. ASSESSMENT AND PLAN: 1. This patient has a right flank wound dehiscence with pus and purulent drainage likely possible infected wound. The patient is status post incision and drainage of the right flank wound. Cultures are pending. We will continue vancomycin and cefepime for MRSA and gram-negative coverage including Streptococcus pyogenes, cover Staph aureus, and other gram-negative coverage. Continue vancomycin and cefepime for now. Check cultures from the incision and drainage of right flank wound. We will discuss with Dr. Chavez for the length of antibiotic treatment. It looks like per the records, it is unclear if it is a diskitis or not. This, I will discuss with him to the extent and the depth of the drainage and the wound. Continue vancomycin and cefepime. Check wound culture. Check followup labs. 2. The patient is status post XLIF L2-L3 as well as posterior spinal fusion. Surgery was done in September. 3. History of low back surgeries and back pain. 4. Diabetes. 5. Hypertension. 6. Questionable dyslipidemia. 7. Gastroesophageal reflux disease. 8. Depression. 9. Obstructive sleep apnea. 10. Anemia. 11. Anxiety. 12. Diabetes and hypertension per primary and Internal Medicine. 13. Allergies to ammonia and ammonium chloride. 14. Social history is negative. 15. Family history is noncontributory. 16. MAR was noted. 17. Case was discussed with RN. 18. Continue treatment per primary consultants. 19. Case discussed with Dr. Chavez and the patient. Sylvie Palmer M.D. DR: HILDA JOB#: [id number] CC:
[2018-10-15] MEDS: HYDROmorphone 1mg/ml Carpuject SUBQ PRN ×6 (01:59→22:46)
--- NOTE | 2018-10-15 02:00 | NUR ---
NURSE NOTES: Pt is in bed, awake. No acute distress noted. Pt has a visitor by bedside.
[2018-10-15 04:00] VITALS: BP 145/88
[2018-10-15 06:31] LABS: BASOPHILS % (AUTO) 1.4 % (0.0-2.0); EOSINOPHILS % (AUTO) 7.5 % (0.0-3.0); HEMATOCRIT 30.1 % (42.0-52.0); HEMOGLOBIN 10.6 G/DL (14.2-18.0); LYMPHOCYTES % (AUTO) 15.1 % (20.0-45.0); MEAN CORPUSCULAR VOLUME 92 FL (80-99); MONOCYTES % (AUTO) 13.2 % (1.0-10.0); NEUTROPHILS % (AUTO) 62.8 % (45.0-75.0); PLATELET COUNT 185 K/UL (150-450); RED BLOOD COUNT 3.27 M/UL (4.70-6.10); RED CELL DISTRIBUTION WIDTH 11.4 % (11.6-14.8); WHITE BLOOD COUNT 5.2 K/UL (4.8-10.8)
--- NOTE | 2018-10-15 06:45 | Consultation ---
DATE OF CONSULTATION: 10/14/2018 CARDIOLOGY CONSULTATION CONSULTING PHYSICIAN: Sebastian Rodriguez M.D. REFERRING PHYSICIAN: Kaden Chavez M.D. REASON FOR REFERRAL: Postoperative medical care and diabetic care. HISTORY OF PRESENT ILLNESS: This is a middle-aged gentleman, who is admitted to the hospital postoperatively. He has had a spine surgery last time in September and apparently had some wound dehiscence and some infection issues and is now being admitted for further treatment. The patient had evaluation by Dr. Chavez yesterday and was admitted to the hospital, although at the time of my evaluation, he was still in the operating room. Orders were given and I am seeing the patient today. He really does not have any chest pain. There is no shortness of breath. No PND. No orthopnea. No palpitation. No dizziness or lightheadedness. He has been active in the hospital and walking around without any difficulty or issues related to that. PAST MEDICAL HISTORY: Positive for hypertension, hyperlipidemia, diabetes, depression, and history of insomnia. He has had fatty infiltration of liver and issues with his lower back for which he has had surgeries. MEDICATIONS: Include Paxil 40 mg daily, telmisartan/HCTZ 80/12.5 mg daily, Zocor 40 mg, metformin 1000 twice a day, glipizide 5 mg daily, Percocet 10 mg, Medrol Jerson recently, morphine sulfate, and Valium for muscle agitation. REVIEW OF SYSTEMS: GASTROINTESTINAL: Negative. GENITOURINARY: Negative. PULMONARY: Negative. CONSTITUTIONAL: Negative. NEUROLOGICAL: Negative. PHYSICAL EXAMINATION: GENERAL: Shows to be a middle-aged gentleman, in no respiratory distress. HEENT: Unremarkable. NECK: Supple. No jugular venous distention. LUNGS: Clear to auscultation and percussion. CARDIAC: S1 is normal. S2 is normal. Regular rate and rhythm. ABDOMEN: Soft. EXTREMITIES: There is no edema of the lower extremities. LABORATORY VALUES AND DIAGNOSTIC DATA: White count of 5.3, hemoglobin 11.3, and a platelet count of 232,000. Sodium is 140, potassium is 4.0, chloride 105, bicarb 27, BUN 16, creatinine 0.8, and glucose of 136. A1c 6.3. Alkaline phosphatase 123. Urinalysis is unremarkable. His blood sugars have been in the 120s to 146 range. ASSESSMENT: 1. Diabetes mellitus. 2. Hypertension. 3. Hyperlipidemia. 4. Right flank wound infection/dehiscence, status post I and D. PLAN: This patient was seen in consultation for Internal Medicine. The patient is a diabetic. He has been recommended a diabetic diet, although he may be actually having some meals outside to his diabetic limitations. His blood sugars are really not that significantly elevated although, but yesterday our discussion with Dr. Chavez was concerning regarding elevated blood sugars that has not been dealt earlier. I did start him on some insulin sliding scale yesterday, which he declined. Dose of his metformin was increased today. He will be starting on his glipizide as well tomorrow. His medications for blood pressure also have been addressed though some of his medications are not available here. I have stopped his lisinopril for his telmisartan for elevated blood pressure until he goes back home and telmisartan will be continued. We will address if blood sugars are significantly more elevated, his metformin will be increased to standard doses. Receiving metformin, a low dose of glipizide will be added. Infectious Disease consultation from Dr. Palmer has been requested. His cultures so far are pending at this time and not mentioned. Ambulation for DVT prophylaxis, pneumatic compression stockings, and incentive spirometer have been added. The patient is also being followed by Dr. Keating for pain management as well. Sebastian Rodriguez M.D. DR: JOS JOB#: [id number] CC:
[2018-10-15 06:58] LABS: ANION GAP 8 mmol/L (5-15); BLOOD UREA NITROGEN 10 mg/dL (7-18); CALCIUM 8.3 MG/DL (8.5-10.1); CARBON DIOXIDE 27 MMOL/L (21-32); CHLORIDE 105 MMOL/L (98-107); CREATININE 0.7 MG/DL (0.55-1.30); POTASSIUM 3.9 MMOL/L (3.5-5.1); SODIUM 140 MMOL/L (136-145)
--- NOTE | 2018-10-15 07:30 | NUR ---
HAND-OFF: Report given to Matt Macias RN.Pt is in bed, awake and alert. No acute distress noted.
--- NOTE | 2018-10-15 07:35 | NUR ---
NURSE NOTES: Patient lying in bed awake. Complain of pain 8/10 on surgical site and will administer pain medication. Skin intact and dry. Wound vac dressing intact and dry. Wound vac on going as ordered. IV dressing intact and dry. Bed lowest position. Call light within reach. Will continue to monitor.
[2018-10-15] MEDS: NS w/KCl 20mEq 1,000 ML IV SCH ×2 (07:57→17:23)
[2018-10-15 08:00] VITALS: BP 159/93
[2018-10-15] MEDS: Docusate 100mg cap ORAL SCH ×2 (09:23→17:22)
[2018-10-15] MEDS: Lisinopril 10mg tab ORAL SCH ×2 (09:23→17:22)
--- NOTE | 2018-10-15 09:23 | Orthopedic Spine Progress Note ---
Ortho Spine - Progress Note Subjective Symptoms: improved - as compared to pre-op Objective Vital Signs: Last 24 Hour Vital Signs Date Time Temp Pulse Resp B/P (MAP) Pulse Ox O2 Delivery O2 Flow Rate FiO2 10/15/18 04:00 98.7 93 20 145/88 (107) 95 10/15/18 00:00 98.9 98 20 142/84 (103) 94 10/14/18 21:00 Room Air 10/14/18 20:00 99.5 101 18 148/93 (111) 94 10/14/18 18:49 98.1 10/14/18 16:00 98.1 87 20 141/82 (101) 96 10/14/18 12:32 68 22 98 10/14/18 12:00 97.7 77 20 144/86 (105) 99 I&O: Intake and Output 10/14/18 10/15/18 19:00 07:00 Intake Total 2295.0 ml 1710.0 ml Output Total 325 ml Balance 1970.0 ml 1710.0 ml Intake Oral 1020 ml 480 ml IV Total 1275.0 ml 1230.0 ml Output Urine Total 300 ml Drainage Total 25 ml # Voids 3 3 # Bowel Movements 1 Wound: other - wound vac in place-- will do dressing change later today Drains: wound vac Neuro Status: normal Assessment Procedure Performed: I&D r flank wound Plan Plan: PT, pain management, continue antibiotics Kaden Chavez MD Oct 15, 2018 09:23
[2018-10-15] MEDS: PARoxetine 20mg tab ORAL SCH (09:24)
[2018-10-15] MEDS: metFORMIN 500mg tab ORAL SCH ×2 (09:24→18:17)
[2018-10-15] MEDS: Vancomycin 1.5gm/D5W 275ml IVPB SCH ×2 (10:00)
[2018-10-15 12:00] VITALS: BP 144/87
[2018-10-15] MEDS: Vancomycin 1.25gm Premix IVPB SCH ×2 (12:10→23:42)
--- NOTE | 2018-10-15 13:15 | Progress Note ---
DATE: 10/15/2018 ACUTE PAIN MANAGEMENT PHYSICIAN PROGRESS NOTE MEDICATIONS: Medication administration record reviewed. Medication include Ambien, vancomycin, Paxil, oxycodone, Zofran, Glucophage, Zestril, Dilaudid, Colace, Benadryl, and Tylenol. LABORATORY DATA: Laboratory studies from this morning are pending. Yesterday's laboratories from October 14, 2018, white count 5, hematocrit 32, and platelets 232. OBJECTIVE: VITAL SIGNS: Within normal limits. Afebrile, pulse 93, respirations 20, blood pressure 145/88, and oxygen saturation 95% on room air. I saw the patient at the bedside. I discussed the case with the nurse. The patient has been using subcutaneous Dilaudid primarily for pain control. I did encourage the oxycodone mg dosing to help reduce the parenteral opioid usage. Dr. Palmer, is following the patient for Infectious Disease. Dr. Palmer is discussing with Dr. Chavez and Dr. Rodriguez, for appropriate antibiotic course and length of treatment. The patient has been able to ambulate and physical therapy training will continue as tolerated. The patient had a recent bowel movement, so opioid-induced constipation is not an issue at this point. The patient will continue on b.i.d. Colace with p.r.n. prune juice available. The patient denies any chest pain or shortness of breath. Rishabh Knight M.D. DR: SHAZIA JOB#: [id number] CC:
--- NOTE | 2018-10-15 13:59 | NUR ---
DISCHARGE PLANNING RECEIVED CALL FROM [employer] STATING THEY WILL ARRANGE HOME NEEDS FOR THIS PATIENT AND REQUESTED ORDERS AND CLINICLAS BE FAXED TO THEM FAXED TO [facility] T: [phone] F: [phone] CONTACT: ALEX
--- NOTE | 2018-10-15 15:39 | NUR ---
CASE MANAGEMENT:REVIEW 10/15/18 SI: POD #2 98.3 77 20 144/87 96% ON RA H/H-10.6/30.1 GLUCOSE+161 IS: IV CEFEPIME Q12 IV VANCOMYCIN Q12 IVF@100/HR PAXIL PO QD DILAUDID SQ Q3HRS PRN : MED/SURG STATUS 3 EAST PLAN: ORDER NOTED FOR HOME HEALTH AND WOUND VAC
[2018-10-15 16:00] VITALS: BP 132/75
[2018-10-15] MEDS ORDERED: Tubing IV Secondary IV ONE (19:07)
--- NOTE | 2018-10-15 19:30 | NUR ---
HAND-OFF: Report given to Hany RN. Patient in stable condition.
[2018-10-15 20:00] VITALS: BP 134/82
--- NOTE | 2018-10-15 20:00 | NUR ---
NURSE NOTES: Pt is in bed, awake and alert. No acute distress noted. Vitas stable. Pt appears to be comfortable. No pain reported at this time. Pain medication will be given as ordered PRN. Wound vac in place. Dressing was changed today. Bed locked low in position,side rails up and call light within ranch. Pt will be monitored.
--- NOTE | 2018-10-15 20:01 | Cardiology Progress Note ---
Assessment/Plan Assessment/Plan 1. Diabetes mellitus. 2. Hypertension. 3. Hyperlipidemia. 4. Right flank wound infection/dehiscence, status post I and D prelim cx noted lab noted bs max 169 will add low dose glipizide ambualteing pain controlled Subjective Cardiovascular: Denies: chest pain, lightheadedness, palpitations Respiratory: Denies: shortness of breath Gastrointestinal/Abdominal: Denies: abdominal pain Genitourinary: Denies: burning Objective Last 24 Hour Vital Signs Date Time Temp Pulse Resp B/P (MAP) Pulse Ox O2 Delivery O2 Flow Rate FiO2 10/15/18 17:22 132/75 10/15/18 16:00 98.9 76 20 132/75 (94) 95 10/15/18 12:00 98.3 77 20 144/87 (106) 96 10/15/18 09:23 159/93 10/15/18 09:00 Room Air 10/15/18 08:00 97.8 83 20 159/93 (115) 95 10/15/18 04:00 98.7 93 20 145/88 (107) 95 10/15/18 00:00 98.9 98 20 142/84 (103) 94 10/14/18 21:00 Room Air 10/14/18 20:00 99.5 101 18 148/93 (111) 94 General Appearance: no apparent distress, alert Neck: non-tender Cardiovascular: normal rate, regular rhythm Respiratory/Chest: lungs clear Abdomen: normal bowel sounds, non tender Extremities: no swelling Intake and Output 10/14/18 10/15/18 19:00 07:00 Intake Total 2295.0 ml 1710.0 ml Output Total 325 ml Balance 1970.0 ml 1710.0 ml Intake Oral 1020 ml 480 ml IV Total 1275.0 ml 1230.0 ml Output Urine Total 300 ml Drainage Total 25 ml # Voids 3 3 # Bowel Movements 1 Laboratory Tests Test 10/14/18 21:00 10/15/18 05:45 Vancomycin Level Trough 18.0 ug/mL (5.0-12.0) H White Blood Count 5.2 K/UL (4.8-10.8) Red Blood Count 3.27 M/UL (4.70-6.10) L Hemoglobin 10.6 G/DL (14.2-18.0) L Hematocrit 30.1 % (42.0-52.0) L Mean Corpuscular Volume 92 FL (80-99) Mean Corpuscular Hemoglobin 32.5 PG (27.0-31.0) H Mean Corpuscular Hemoglobin Concent 35.3 G/DL (32.0-36.0) Red Cell Distribution Width 11.4 % (11.6-14.8) L Platelet Count 185 K/UL (150-450) Mean Platelet Volume 7.5 FL (6.5-10.1) Neutrophils (%) (Auto) 62.8 % (45.0-75.0) Lymphocytes (%) (Auto) 15.1 % (20.0-45.0) L Monocytes (%) (Auto) 13.2 % (1.0-10.0) H Eosinophils (%) (Auto) 7.5 % (0.0-3.0) H Basophils (%) (Auto) 1.4 % (0.0-2.0) Sodium Level 140 MMOL/L (136-145) Potassium Level 3.9 MMOL/L (3.5-5.1) Chloride Level 105 MMOL/L (98-107) Carbon Dioxide Level 27 MMOL/L (21-32) Anion Gap 8 mmol/L (5-15) Blood Urea Nitrogen 10 mg/dL (7-18) Creatinine 0.7 MG/DL (0.55-1.30) Estimat Glomerular Filtration Rate > 60 mL/min (>60) Glucose Level 161 MG/DL (74-106) H Calcium Level 8.3 MG/DL (8.5-10.1) L Microbiology Date/Time Source Procedure Growth Status 10/13/18 10:00 Nasal Nares MRSA Culture - Final NO METHICILLIN RESISTANT STAPH AUREUS... Complete 10/13/18 17:30 Incision Gram Stain - Final Resulted 10/13/18 17:30 Aerobic Culture - Preliminary Staphylococcus Aureus Resulted 10/13/18 17:30 Incision Gram Stain - Final Resulted 10/13/18 17:30 Aerobic Culture - Preliminary Staphylococcus Aureus Resulted 10/13/18 17:30 Incision Gram Stain - Final Resulted 10/13/18 17:30 Aerobic Culture - Preliminary Staphylococcus Aureus Resulted Sebastian Rodriguez MD Oct 15, 2018 20:01
[2018-10-16] VITALS: BP 126/70
[2018-10-16 04:00] VITALS: BP 122/82
[2018-10-16] MEDS: HYDROmorphone 1mg/ml Carpuject SUBQ PRN (04:54)
--- NOTE | 2018-10-16 06:00 | NUR ---
NURSE NOTES: Dilaudid 1mg Subq Dc'd by Dr. Knight. Pt is informed.
[2018-10-16] MEDS: GlipiZIDE 5mg tab ORAL SCH (06:51)
--- NOTE | 2018-10-16 07:15 | NUR ---
HAND-OFF: Report given to Keri Chakraborty RN.Pt is in bed, awake and alert.
[2018-10-16 08:00] VITALS: BP 140/90
--- NOTE | 2018-10-16 08:04 | NUR ---
NURSE NOTES: Pt sleeping call light is in reach. Bed in a safe position, Wound Vac on no output. On for therapeutic purposes.
--- NOTE | 2018-10-16 09:03 | Orthopedic Spine Progress Note ---
Ortho Spine - Progress Note Subjective Symptoms: c/o post-op back pain, improved - as compared to pre-op Objective Vital Signs: Last 24 Hour Vital Signs Date Time Temp Pulse Resp B/P (MAP) Pulse Ox O2 Delivery O2 Flow Rate FiO2 10/16/18 04:00 98.4 72 20 122/82 (95) 98 10/16/18 00:00 98.2 74 20 126/70 (88) 97 10/15/18 21:00 Room Air 10/15/18 20:00 98.8 82 20 134/82 (99) 96 10/15/18 17:22 132/75 10/15/18 16:00 98.9 76 20 132/75 (94) 95 10/15/18 12:00 98.3 77 20 144/87 (106) 96 10/15/18 09:23 159/93 I&O: Intake and Output 10/15/18 10/16/18 19:00 07:00 Intake Total 1050.000 ml Output Total 0 ml Balance 1050.000 ml Intake Oral 720 ml IV Total 330.000 ml Drainage Total 0 ml # Voids 3 # Bowel Movements 2 Wound: clean Drains: wound vac Neuro Status: stable Assessment Procedure Performed: I&D r flank wound Plan Plan: PT, pain management, continue antibiotics, continue drain - wound vac Additional Comments: plan I&D and primary wound closure on friday Kaden Chavez MD Oct 16, 2018 09:03
[2018-10-16] MEDS: Docusate 100mg cap ORAL SCH ×2 (09:48→18:00)
[2018-10-16] MEDS: metFORMIN 500mg tab ORAL SCH ×2 (09:49→18:32)
[2018-10-16] MEDS: PARoxetine 20mg tab ORAL SCH (09:49)
[2018-10-16] MEDS: Lisinopril 10mg tab ORAL SCH ×2 (09:53→18:34)
[2018-10-16] MEDS: oxyCODONE 5mg IR tab ORAL PRN ×5 (09:55→23:44)
[2018-10-16 12:00] VITALS: BP 136/84
[2018-10-16] MEDS: Cefepime HCl 2 GM in D5W 55 ML IVPB SCH (12:51)
--- NOTE | 2018-10-16 13:45 | Progress Note ---
DATE: 10/16/2018 ACUTE PAIN MANAGEMENT PHYSICIAN PROGRESS NOTE MEDICATIONS: Medication administration record reviewed. Medications include Tylenol, Benadryl, Colace, Zestril, Glucotrol, Glucophage, Zofran, oxycodone, Paxil, Dilaudid, Ambien, and vancomycin. LABORATORY STUDIES: From yesterday, October 15, 2018 shows white count 5, hematocrit 30, platelets 185. Sodium 140, potassium 3.9, chloride 105, bicarb 27, BUN 10, creatinine 0.7, glucose 161, calcium 8.3. Incisional gram stain from October 13, shows 3+ Staphylococcus aureus. MRSA negative. I saw the patient at the bedside. I discussed the case with the nurse RN, Hany. The patient continues to be requesting the breakthrough Dilaudid injections repeatedly. The nurses and I have been offering and recommending the patient to use oral oxycodone pills. The patient has been declining, preferring the Dilaudid injections. At this point, several days after surgery and with the patient's admitted opioid dependency several years ago, I believe it is appropriate at this time to discontinue all parenteral narcotics. Also discussed with the patient who understood the rationale and agreed to comply. Therefore, I have renewed the oxycodone instant release 15 mg tablets dosing. This will continue every three hours p.r.n. for pain. All Dilaudid and parenteral narcotics have been discontinued. The patient will continue with Paxil for mood stabilization. Infectious Disease physician Dr. Palmer, will continue to discuss with the surgeon, Dr. Chavez regarding appropriate antibiotic treatment and discharge planning. Rishabh Knight M.D. DR: SHAZIA JOB#: [id number] CC:
--- NOTE | 2018-10-16 14:09 | NUR ---
CASE MANAGEMENT:REVIEW 10/15/18 SI: POD #3 98.4 72 20 122/82 98% ON RA IS: IV ANCEF Q8HRS OXYCODONE PO Q3HRS PRN METFORMIN PO BID LISINOPRIL PO BID PAXIL PO QD : MED/SURG STATUS 3 [facility] PLAN: I&D AND PRIMARY WOUND CLOSURE ON FRIDAY
[2018-10-16] MEDS ORDERED: ceFAZolin 2gm/50ml Premix 50 ML IV SCH (15:00)
--- NOTE | 2018-10-16 15:25 | Infectious Diseases Prog Note ---
Assessment/Plan Assessment/Plan ASSESSMENT AND PLAN: 1. MSSA right flank wound infection, s/p I/D - - change antibiotic to Ancef - plan on further I/D and wound closure on Friday - monitor labs - will d/w Dr. Chavez regarding length of abx treatment length - MRI noted 2. The patient is status post XLIF L2-L3 as well as posterior spinal fusion. Surgery was done in September. 3. History of low back surgeries and back pain. 4. Diabetes. 5. Hypertension. 6. Questionable dyslipidemia. 7. Gastroesophageal reflux disease. 8. Depression. 9. Obstructive sleep apnea. 10. Anemia. 11. Anxiety. 12. Diabetes and hypertension per primary and Internal Medicine. 13. Allergies to ammonia and ammonium chloride. 14. Social history is negative. 15. Family history is noncontributory. 16. MAR was noted. 17. Case was discussed with RN. 18. Continue treatment per primary consultants. 19. Case discussed with Dr. Chavez and the patient. Subjective Constitutional: Denies: fever HEENT: Denies: congestion Respiratory: Denies: shortness of breath Cardiovascular: Denies: chest pain Gastrointestinal/Abdominal: Denies: nausea, vomiting, diarrhea Neurologic: Denies: headache Psychiatric: Denies: depression Skin: Denies: rash Hematologic: Denies: bleeding Musculoskeletal: Reports: pain - back pain controlled Allergies: Coded Allergies: AMMONIUM CHLORIDE (Verified Allergy, Mild, 09/14/18) LIGHT HEADED Uncoded Allergies: AMMONIA (Adverse Reaction, Severe, 09/14/18) WEAKNESS AND LIGHT HEADED Objective Vital Signs Last 24 Hour Vital Signs Date Time Temp Pulse Resp B/P (MAP) Pulse Ox O2 Delivery O2 Flow Rate FiO2 10/16/18 09:53 140/90 10/16/18 04:00 98.4 72 20 122/82 (95) 98 10/16/18 00:00 98.2 74 20 126/70 (88) 97 10/15/18 21:00 Room Air 10/15/18 20:00 98.8 82 20 134/82 (99) 96 10/15/18 17:22 132/75 10/15/18 16:00 98.9 76 20 132/75 (94) 95 Height (Feet): 6 Height (Inches): 1.00 Weight (Pounds): 236 General Appearance: no acute distress HEENT: normocephalic, atraumatic, anicteric, mucous membranes moist Respiratory/Chest: lungs clear, normal breath sounds, no respiratory distress, no accessory muscle use Cardiovascular: normal rate, regular rhythm, no gallop/murmur, no JVD Abdomen: normal bowel sounds, soft, non tender, no organomegaly Genitourinary: other - no addison Extremities: no cyanosis Skin: no rash, other - right flank wound with VAC 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 There is some inflammation extending inferiorly to this but not outside the psoas. Appearance is nonspecific, could represent a routine postoperative fluid collection versus infected fluid collection. Correlate with clinical findings. Fluid collection posterolateral to the left L3 lamina, anterior to the interspinous fusion hardware. Again, possibly representing routine postoperative fluid collection versus infected collection. Generalized edema of the L2 through L4 paraspinous musculature, likely related to recent surgery. 18 x 11 x 25 mm focal fluid collection along the midline incision at the L2 level. This may represent a routine postoperative seroma versus infected collection. Edema of the L2-3 disc and adjacent endplates. Given recent surgery, most likely related to the recent surgery. Discitis/osteomyelitis are not completely excludable, and post contrast imaging may be useful if there is clinical concern for such Other postoperative changes as detailed above Moderate to severe spinal stenosis at L2-3, due to combination of circumferential annular bulge and anterior protrusion of the epidural fat Degenerative changes as detailed above Microbiology Date/Time Source Procedure Growth Status 10/14/18 12:45 Incision Anaerobic Culture - Preliminary Resulted 10/14/18 12:30 Incision Anaerobic Culture - Preliminary Resulted 10/14/18 12:30 Incision Anaerobic Culture - Preliminary Resulted 10/13/18 17:30 Incision Gram Stain - Final Complete 10/13/18 17:30 Aerobic Culture - Final Staphylococcus Aureus Complete 10/13/18 17:30 Incision Gram Stain - Final Complete 10/13/18 17:30 Aerobic Culture - Final Staphylococcus Aureus Complete 10/13/18 17:30 Incision Gram Stain - Final Complete 10/13/18 17:30 Aerobic Culture - Final Staphylococcus Aureus Complete Labs Test 10/13/18 16:30 10/13/18 18:18 10/14/18 06:00 10/14/18 21:00 Hemoglobin A1c 6.8 % (4.3-6.0) Urine Color Pale yellow Urine Appearance Clear Urine pH 5 (4.5-8.0) Urine Specific [place] 1.015 (1.005-1.035) Urine Protein Negative (NEGATIVE) Urine Glucose (UA) Negative (NEGATIVE) Urine Ketones Negative (NEGATIVE) Urine Blood Negative (NEGATIVE) Urine Nitrite Negative (NEGATIVE) Urine Bilirubin Negative (NEGATIVE) Urine Urobilinogen Normal MG/DL (0.0-1.0) Urine Leukocyte Esterase Negative (NEGATIVE) Urine RBC 0 /HPF (0 - 0) Urine WBC 0 /HPF (0 - 0) Urine Squamous Epithelial Cells None /LPF (NONE/OCC) Urine Bacteria None /HPF (NONE) Urine Mucus Occasional /LPF White Blood Count 5.3 K/UL (4.8-10.8) Red Blood Count 3.52 M/UL (4.70-6.10) Hemoglobin 11.3 G/DL (14.2-18.0) Hematocrit 32.3 % (42.0-52.0) Mean Corpuscular Volume 92 FL (80-99) Mean Corpuscular Hemoglobin 32.1 PG (27.0-31.0) Mean Corpuscular Hemoglobin Concent 35.0 G/DL (32.0-36.0) Red Cell Distribution Width 11.1 % (11.6-14.8) Platelet Count 232 K/UL (150-450) Mean Platelet Volume 7.4 FL (6.5-10.1) Neutrophils (%) (Auto) 72.1 % (45.0-75.0) Lymphocytes (%) (Auto) 11.7 % (20.0-45.0) Monocytes (%) (Auto) 9.6 % (1.0-10.0) Eosinophils (%) (Auto) 5.8 % (0.0-3.0) Basophils (%) (Auto) 0.8 % (0.0-2.0) Sodium Level 140 MMOL/L (136-145) Potassium Level 4.0 MMOL/L (3.5-5.1) Chloride Level 105 MMOL/L (98-107) Carbon Dioxide Level 27 MMOL/L (21-32) Anion Gap 8 mmol/L (5-15) Blood Urea Nitrogen 16 mg/dL (7-18) Creatinine 0.8 MG/DL (0.55-1.30) Estimat Glomerular Filtration Rate > 60 mL/min (>60) Glucose Level 136 MG/DL (74-106) Calcium Level 8.6 MG/DL (8.5-10.1) Magnesium Level 1.9 MG/DL (1.8-2.4) Total Bilirubin 0.4 MG/DL (0.2-1.0) Aspartate Amino Transf (AST/SGOT) 23 U/L (15-37) Alanine Aminotransferase (ALT/SGPT) 31 U/L (12-78) Alkaline Phosphatase 123 U/L (46-116) Total Protein 6.9 G/DL (6.4-8.2) Albumin 3.2 G/DL (3.4-5.0) Globulin 3.7 g/dL Albumin/Globulin Ratio 0.9 (1.0-2.7) Vancomycin Level Trough 18.0 ug/mL (5.0-12.0) Test 10/15/18 05:45 White Blood Count 5.2 K/UL (4.8-10.8) Red Blood Count 3.27 M/UL (4.70-6.10) Hemoglobin 10.6 G/DL (14.2-18.0) Hematocrit 30.1 % (42.0-52.0) Mean Corpuscular Volume 92 FL (80-99) Mean Corpuscular Hemoglobin 32.5 PG (27.0-31.0) Mean Corpuscular Hemoglobin Concent 35.3 G/DL (32.0-36.0) Red Cell Distribution Width 11.4 % (11.6-14.8) Platelet Count 185 K/UL (150-450) Mean Platelet Volume 7.5 FL (6.5-10.1) Neutrophils (%) (Auto) 62.8 % (45.0-75.0) Lymphocytes (%) (Auto) 15.1 % (20.0-45.0) Monocytes (%) (Auto) 13.2 % (1.0-10.0) Eosinophils (%) (Auto) 7.5 % (0.0-3.0) Basophils (%) (Auto) 1.4 % (0.0-2.0) Sodium Level 140 MMOL/L (136-145) Potassium Level 3.9 MMOL/L (3.5-5.1) Chloride Level 105 MMOL/L (98-107) Carbon Dioxide Level 27 MMOL/L (21-32) Anion Gap 8 mmol/L (5-15) Blood Urea Nitrogen 10 mg/dL (7-18) Creatinine 0.7 MG/DL (0.55-1.30) Estimat Glomerular Filtration Rate > 60 mL/min (>60) Glucose Level 161 MG/DL (74-106) Calcium Level 8.3 MG/DL (8.5-10.1) Current Medications Medications (Trade) Dose Ordered Sig/Unruly Route PRN Reason Start Time Stop Time Status Last Admin Dose Admin Acetaminophen (Tylenol) 650 mg Q4H PRN ORAL headache or temp>101 10/13/18 14:54 11/12/18 14:53 Cefazolin Sodium 2 gm/Dextrose 55 ml @ 110 mls/hr Q8H IVPB 10/16/18 16:00 10/23/18 15:59 Dextrose (Dextrose 50%) 25 ml Q30M PRN IV Hypoglycemia 10/13/18 14:54 11/12/18 14:53 Dextrose (Dextrose 50%) 50 ml Q30M PRN IV Hypoglycemia 10/13/18 14:54 11/12/18 14:53 Diphenhydramine HCl (Benadryl) 25 mg Q6H PRN ORAL Itching 10/13/18 18:45 11/12/18 18:44 Docusate Sodium (Colace) 100 mg TWICE A DAY ORAL 10/13/18 18:00 11/12/18 17:59 10/16/18 09:48 Glipizide (Glucotrol) 2.5 mg ACBREAKFAST ORAL 10/16/18 06:30 11/15/18 06:29 10/16/18 06:51 Lisinopril (Zestril) 10 mg BID ORAL 10/15/18 09:00 11/14/18 08:59 10/16/18 09:53 Metformin HCl (Glucophage) 1,000 mg BID ORAL 10/15/18 09:00 11/14/18 08:59 10/16/18 09:49 Ondansetron HCl (Zofran) 4 mg Q4H PRN IVP Nausea & Vomiting 10/13/18 18:45 11/12/18 18:44 Oxycodone HCl (Roxicodone) 15 mg Q3H PRN ORAL Moderate Breakthru Pain (5-7) 10/16/18 09:45 10/23/18 09:44 10/16/18 12:50 Paroxetine HCl (Paxil) 40 mg DAILY ORAL 10/14/18 09:00 11/13/18 08:59 10/16/18 09:49 Zolpidem Tartrate (Ambien) 5 mg BEDTIME PRN ORAL Insomnia 10/13/18 21:00 10/20/18 20:59 10/15/18 22:45 Sylvie Palmer MD Oct 16, 2018 15:25
[2018-10-16 16:00] VITALS: BP 140/82
--- NOTE | 2018-10-16 16:07 | NUR ---
NURSE NOTES: pt requested that iv be given after wound care
--- NOTE | 2018-10-16 16:42 | NUR ---
NURSE NOTES:WOUND CARE FOLLOW-UP NOTES:NPWT to surgical wound R abd changed.Granulofoam packing saturated with Saline for easy removal. Base of wound clean granular. Periwound clean and pink. No elevation in skin temp ,erythema or induration around incision. No odor noted. Approx 40ml serosanguineous exudate noted in canister of Vac. Wound noted to be closing . Wound cleansed with saline.Cavilon Skin Barrier applied periwound then draped with transparent drsg. Thin strip of granulofoam packed into wound cavity ,then second wider layer placed over incision to accommodate Vac therapy. NPWT resumed as ordered. Pt tolerated procedure without any complaints of pain or discomfort.
--- NOTE | 2018-10-16 16:44 | Anethesia Preoperative Eval ---
Anesthesia Pre-op PMH/ROS General Date of Evaluation: Oct 16, 2018 Time of Evaluation: 15:54 Anesthesiologist: Uziel ASA Score: ASA 3 Mallampati Score Class I : Soft palate, uvula, fauces, pillars visible Class II: Soft palate, uvula, fauces visible Class III: Soft palate, base of uvula visible Class IV: Only hard plate visible Mallampati Classification: Class II Surgeon: Scott Diagnosis: Cellulitis R Flank Surgical Procedure: I&D R Flank Wound with Closure Anesthesia History: none Family History: no anesthesia problems Allergies: Coded Allergies: AMMONIUM CHLORIDE (Verified Allergy, Mild, 09/14/18) LIGHT HEADED Uncoded Allergies: AMMONIA (Adverse Reaction, Severe, 09/14/18) WEAKNESS AND LIGHT HEADED Medications: see eMAR Patient NPO?: Yes NPO Date: Oct 12, 2018 NPO Time: 1800 Past Medical History Cardiovascular: Reports: HTN Pulmonary: Reports: KAN Gastrointestinal/Genitourinary: Reports: GERD Neurologic/Psychiatric: Reports: depression/anxiety Endocrine: Reports: DM Hematology/Immune: Reports: anemia Other: obesity - BMI 32 PSxH Narrative: Spine SX, I&D Flank Anesthesia Pre-op Phys. Exam Physician Exam Last Vital Signs Date Time Temp Pulse Resp B/P (MAP) Pulse Ox O2 Delivery O2 Flow Rate FiO2 10/16/18 09:53 140/90 10/16/18 04:00 98.4 72 20 98 10/15/18 21:00 Room Air 10/14/18 09:00 2.0 Constitutional: NAD Neurologic: CN 2-12 intact Cardiovascular: RRR Respiratory: CTA Gastrointestinal: S/NT/ND Airway Exam Mallampati Score: Class II MO: full Neck: Stiff ROM: full Teeth: intact Anesthesia Pre-op A/P Risk Assessment & Plan Assessment: ASA 3 Plan: GA Status Change Before Surgery: No Pre-Antibiotics Drug: Silverio Gasca MD Oct 16, 2018 16:44
[2018-10-16] MEDS: ceFAZolin sod 2 GM in D5W 55 ML IVPB SCH ×2 (17:01→23:45)
--- NOTE | 2018-10-16 17:10 | NUR ---
NURSE NOTES: IV given per pt request. :" I am ready now"
--- NOTE | 2018-10-16 18:00 | NUR ---
NURSE NOTES: Pt has complex emotional bx. Desk Manager entered room began talking about his . Visibly upset. Wound Vac dressing changed, by wound nurse. Skin is clear , no dermatological side effect of antibiotic use noted. Blood sugar slightly elevated at end of shift pt states he does not take insulin 233 after a meal. senior writer offered to retake blood sugar with refusal. Current paln of acre will be followed. Call light in reach. Pain medication provided during shift. verbalized effectiveness
--- NOTE | 2018-10-16 19:25 | Cardiology Progress Note ---
Assessment/Plan Assessment/Plan 1. Diabetes mellitus. 2. Hypertension. 3. Hyperlipidemia. 4. Right flank wound infection/dehiscence, status post I and D prelim cx noted lab noted on metformin and low dose glipizide ambulating pain controlled dvt ppx IS note d surgery planned for friday labs in am Subjective Cardiovascular: Denies: chest pain, lightheadedness Respiratory: Denies: shortness of breath Gastrointestinal/Abdominal: Denies: abdominal pain Genitourinary: Denies: burning Objective Last 24 Hour Vital Signs Date Time Temp Pulse Resp B/P (MAP) Pulse Ox O2 Delivery O2 Flow Rate FiO2 10/16/18 18:34 153/87 10/16/18 16:00 98.2 79 16 140/82 (101) 99 10/16/18 12:00 97.6 78 18 136/84 (101) 98 10/16/18 09:53 140/90 10/16/18 09:00 Room Air 10/16/18 08:00 97.7 80 16 140/90 (107) 98 10/16/18 04:00 98.4 72 20 122/82 (95) 98 10/16/18 00:00 98.2 74 20 126/70 (88) 97 10/15/18 21:00 Room Air 10/15/18 20:00 98.8 82 20 134/82 (99) 96 General Appearance: no apparent distress, alert Neck: supple Cardiovascular: normal rate, regular rhythm Respiratory/Chest: lungs clear, normal breath sounds Abdomen: normal bowel sounds, non tender, soft Extremities: no swelling Intake and Output 10/15/18 10/16/18 19:00 07:00 Intake Total 1050.000 ml Output Total 0 ml Balance 1050.000 ml Intake Oral 720 ml IV Total 330.000 ml Drainage Total 0 ml # Voids 3 # Bowel Movements 2 Microbiology Date/Time Source Procedure Growth Status 10/14/18 12:45 Incision Anaerobic Culture - Preliminary Resulted 10/14/18 12:30 Incision Anaerobic Culture - Preliminary Resulted 10/14/18 12:30 Incision Anaerobic Culture - Preliminary Resulted Sebastian Rodriguez MD Oct 16, 2018 19:25
[2018-10-16 20:00] VITALS: BP 131/74
[2018-10-16] MEDS: Zolpidem 5mg tab ORAL PRN (23:44)
[2018-10-17] VITALS: BP 135/71
[2018-10-17] MEDS: oxyCODONE 5mg IR tab ORAL PRN ×5 (03:34→20:54)
[2018-10-17 04:00] VITALS: BP 143/83
[2018-10-17] MEDS ORDERED: Milk of Magnesia 30ml Ud ORAL PRN (05:45)
[2018-10-17] MEDS: GlipiZIDE 5mg tab ORAL SCH (06:15)
--- NOTE | 2018-10-17 06:46 | Progress Note ---
DATE: 10/17/2018 ACUTE PAIN MANAGEMENT PHYSICIAN PROGRESS NOTE MEDICATIONS: Medication administration record reviewed. Medications include Ambien, Paxil, Roxicodone, Zofran, Glucophage, Zestril, Toradol, Dilaudid, Glucotrol, Colace, Benadryl, and Tylenol. LABORATORY STUDIES: No interval laboratory studies. VITAL SIGNS: Within normal limits. Afebrile, pulse 73, respirations 18, blood pressure 135/71, and oxygen saturation 99% on room air. I saw the patient at bedside. I discussed the case with the nurse RN, Venkatesh and the charge nurse, RNSaundra. The patient has been ambulating frequently. After discontinuing the parental Dilaudid narcotic yesterday, the patient has been tolerating his oral oxycodone 15 mg dosing with adequate pain control. I will continue him off of parenteral narcotics for the next several days. The patient will return to surgery in [address] Chavez to trial a wound closure procedure with further wound during the exploration. After that surgery, I will restart the patient's Dilaudid at that time. The patient will continue with his Paxil for mood stabilization. He will continue with Colace b.i.d. as a stool softener. The patient does have prune juice and milk of magnesia available as a rescue laxative. Rishabh Knight M.D. DR: WAYNE JOB#: [id number] CC:
--- NOTE | 2018-10-17 07:20 | NUR ---
HAND-OFF: Report given to BERHANE LOPEZ.
[2018-10-17 07:35] LABS: BASOPHILS % (AUTO) 1.2 % (0.0-2.0); EOSINOPHILS % (AUTO) 6.8 % (0.0-3.0); HEMATOCRIT 31.3 % (42.0-52.0); LYMPHOCYTES % (AUTO) 21.6 % (20.0-45.0); MEAN CORPUSCULAR VOLUME 91 FL (80-99); MONOCYTES % (AUTO) 10.8 % (1.0-10.0); NEUTROPHILS % (AUTO) 59.6 % (45.0-75.0); PLATELET COUNT 198 K/UL (150-450); RED BLOOD COUNT 3.43 M/UL (4.70-6.10); RED CELL DISTRIBUTION WIDTH 11.1 % (11.6-14.8); WHITE BLOOD COUNT 6.5 K/UL (4.8-10.8)
[2018-10-17 08:00] VITALS: BP 157/79
--- NOTE | 2018-10-17 08:04 | NUR ---
NURSE NOTES: ASLEEP. IN NO APPARENT DISTRESS. WOUND VAC IN PLACE.
[2018-10-17 08:13] LABS: ALANINE AMINOTRANSFERASE 30 U/L (12-78); ALBUMIN 3.1 G/DL (3.4-5.0); ALBUMIN/GLOBULIN RATIO 0.9 (1.0-2.7); ALKALINE PHOSPHATASE 120 U/L (46-116); ANION GAP 9 mmol/L (5-15); ASPARTATE AMINO TRANSFERASE 22 U/L (15-37); BILIRUBIN,TOTAL 0.3 MG/DL (0.2-1.0); BLOOD UREA NITROGEN 12 mg/dL (7-18); CALCIUM 8.3 MG/DL (8.5-10.1); CARBON DIOXIDE 26 MMOL/L (21-32); CHLORIDE 106 MMOL/L (98-107); CREATININE 0.7 MG/DL (0.55-1.30); POTASSIUM 3.5 MMOL/L (3.5-5.1); SODIUM 141 MMOL/L (136-145)
[2018-10-17] MEDS: ceFAZolin sod 2 GM in D5W 55 ML IVPB SCH ×2 (08:16→16:01)
[2018-10-17] MEDS: Docusate 100mg cap ORAL SCH ×2 (09:00→17:28)
[2018-10-17] MEDS: metFORMIN 500mg tab ORAL SCH ×2 (09:17→17:27)
[2018-10-17] MEDS: PARoxetine 20mg tab ORAL SCH (09:17)
[2018-10-17] MEDS: Lisinopril 10mg tab ORAL SCH ×2 (09:17→17:28)
[2018-10-17 12:00] VITALS: BP 140/78
--- NOTE | 2018-10-17 13:21 | NUR ---
NURSE NOTES: magnesium level 1.7. result called to dr goodrich with new order.
[2018-10-17 16:00] VITALS: BP 135/71
--- NOTE | 2018-10-17 18:38 | Cardiology Progress Note ---
Assessment/Plan Assessment/Plan will add lactobacillus, continue abx Subjective Subjective The patient had headache this morning, He is worried about complications from antibioitcs, including c dif colitishe had episode of mild diarrhea Objective Last 24 Hour Vital Signs Date Time Temp Pulse Resp B/P (MAP) Pulse Ox O2 Delivery O2 Flow Rate FiO2 10/17/18 17:28 135/71 10/17/18 16:00 98.9 80 21 135/71 (92) 95 10/17/18 12:00 98.8 75 19 140/78 (98) 9 10/17/18 10:35 98.3 10/17/18 09:17 157/79 10/17/18 08:44 Room Air 10/17/18 08:00 98.3 66 19 157/79 (105) 98 10/17/18 04:00 98.0 69 18 143/83 (103) 99 10/17/18 00:00 98.4 73 18 135/71 (92) 99 10/16/18 21:00 Room Air 10/16/18 20:00 98.8 96 18 131/74 (93) 99 General Appearance: no apparent distress EENT: PERRL/EOMI Neck: no JVD Rhythm: SB Cardiovascular: regular rhythm Respiratory/Chest: lungs clear Abdomen: soft, distended Extremities: normal range of motion Intake and Output 10/16/18 10/17/18 19:00 07:00 Intake Total 55 ml 55 ml Output Total 30 ml Balance 55 ml 25 ml IV Total 55 ml 55 ml Drainage Total 30 ml Laboratory Tests Test 10/17/18 05:49 White Blood Count 6.5 K/UL (4.8-10.8) Red Blood Count 3.43 M/UL (4.70-6.10) L Hemoglobin 11.0 G/DL (14.2-18.0) L Hematocrit 31.3 % (42.0-52.0) L Mean Corpuscular Volume 91 FL (80-99) Mean Corpuscular Hemoglobin 32.2 PG (27.0-31.0) H Mean Corpuscular Hemoglobin Concent 35.3 G/DL (32.0-36.0) Red Cell Distribution Width 11.1 % (11.6-14.8) L Platelet Count 198 K/UL (150-450) Mean Platelet Volume 7.5 FL (6.5-10.1) Neutrophils (%) (Auto) 59.6 % (45.0-75.0) Lymphocytes (%) (Auto) 21.6 % (20.0-45.0) Monocytes (%) (Auto) 10.8 % (1.0-10.0) H Eosinophils (%) (Auto) 6.8 % (0.0-3.0) H Basophils (%) (Auto) 1.2 % (0.0-2.0) Prothrombin Time 10.7 SEC (9.30-11.50) Prothromb Time International Ratio 1.0 (0.9-1.1) Activated Partial Thromboplast Time 28 SEC (23-33) Sodium Level 141 MMOL/L (136-145) Potassium Level 3.5 MMOL/L (3.5-5.1) Chloride Level 106 MMOL/L (98-107) Carbon Dioxide Level 26 MMOL/L (21-32) Anion Gap 9 mmol/L (5-15) Blood Urea Nitrogen 12 mg/dL (7-18) Creatinine 0.7 MG/DL (0.55-1.30) Estimat Glomerular Filtration Rate > 60 mL/min (>60) Glucose Level 116 MG/DL (74-106) H Calcium Level 8.3 MG/DL (8.5-10.1) L Magnesium Level 1.7 MG/DL (1.8-2.4) L Total Bilirubin 0.3 MG/DL (0.2-1.0) Aspartate Amino Transf (AST/SGOT) 22 U/L (15-37) Alanine Aminotransferase (ALT/SGPT) 30 U/L (12-78) Alkaline Phosphatase 120 U/L (46-116) H Total Protein 6.7 G/DL (6.4-8.2) Albumin 3.1 G/DL (3.4-5.0) L Globulin 3.6 g/dL Albumin/Globulin Ratio 0.9 (1.0-2.7) L Yaima Rowland MD Oct 17, 2018 18:38
--- NOTE | 2018-10-17 19:00 | NUR ---
NURSE NOTES: stable . in no distress.
--- NOTE | 2018-10-17 19:30 | NUR ---
Received report from Sally. Patient alert, oriented. No distress noted. IV saline lock on left hand, intact, patent. Right flank wound dressing intact, wound vac on. Will continue to monitor
[2018-10-17] MEDS: Lactobacillus-GG tablet ORAL SCH (19:42)
--- NOTE | 2018-10-17 19:53 | NUR ---
HAND-OFF: Report given to osmani westbrook rn.
[2018-10-17 20:00] VITALS: BP 138/86
[2018-10-18] VITALS: BP 126/70
[2018-10-18] MEDS: Zolpidem 5mg tab ORAL PRN (00:39)
[2018-10-18] MEDS: ceFAZolin sod 2 GM in D5W 55 ML IVPB SCH ×3 (00:39→15:58)
[2018-10-18] MEDS: oxyCODONE 5mg IR tab ORAL PRN ×7 (02:16→22:38)
[2018-10-18] MEDS: GlipiZIDE 5mg tab ORAL SCH (07:22)
--- NOTE | 2018-10-18 07:30 | NUR ---
HAND-OFF: Report given to JOHN Zavala. No distress noted.
--- NOTE | 2018-10-18 07:52 | NUR ---
NURSE NOTES: AWAKE/ALERT. PAIN SCALE 7/10. IN NO DISTRESS.
[2018-10-18 08:00] VITALS: BP 151/22
[2018-10-18] MEDS: Lactobacillus-GG tablet ORAL SCH ×3 (08:33→17:30)
[2018-10-18] MEDS: metFORMIN 500mg tab ORAL SCH ×2 (08:33→17:30)
[2018-10-18] MEDS: Lisinopril 10mg tab ORAL SCH ×2 (08:33→17:30)
[2018-10-18] MEDS: PARoxetine 20mg tab ORAL SCH (08:33)
[2018-10-18] MEDS: Docusate 100mg cap ORAL SCH ×2 (08:34→17:30)
--- NOTE | 2018-10-18 10:45 | Progress Note ---
DATE: 10/18/2018 ACUTE PAIN MANAGEMENT PHYSICIAN PROGRESS NOTE MEDICATIONS: Medication administration record reviewed. Medications include Colace, Glucotrol, Glucophage, Zestril, Paxil, antibiotics, and lactobacillus. P.r.n. medications include Tylenol, Benadryl, Zofran, milk of magnesia, Ambien, Dilaudid, and oxycodone. LABORATORY STUDIES: From yesterday, October 17, 2018 shows white count 7, hematocrit 31, and platelets 200. Sodium 141, potassium 3.5, chloride 106, bicarb 26, BUN 12, creatinine 0.7, glucose , and calcium 8.3. Total bilirubin 0.3. AST 22, ALT 30, and alkaline phosphatase 120. Total protein 6.7. Albumin 3.1. Magnesium 1.7. INR 1.0 and PTT 28. OBJECTIVE: VITAL SIGNS: Currently afebrile, pulse 78, respirations 16, blood pressure 126/70, and oxygen saturation 95% on room air. I saw the patient at the bedside. I discussed the case with the nurse RN, Sally. I provided the patient a prescription for 90 tablets of Percocet 10/325, which the family will drop off at their local [facility] pharmacy near [place], [place] later today. The patient states that he normally gets his oxycodone prescriptions electronically send by Dr. Chavez's office. I will give this prescription to help avoid any delay as the patient is nearly out of his Percocet supply at home whenever he was discharged home. The patient will now be returning home any time soon as he is having revision surgery tomorrow for closure of the wound and further lumbar spine exploration. The patient is agreeable to continuing on oral analgesics for now. Once surgery is complete, I agree to restart the parenteral Dilaudid for a short-time interval. The patient is agreeable with this plan. The patient currently is quite ambulatory. He is tolerating regular diet and will use p.r.n. laxatives as needed to help promote bowel regularity. Rishabh Knight M.D. DR: CARMEN/ANIRUDH JOB#: [id number] CC:
[2018-10-18 12:00] VITALS: BP 144/80
--- NOTE | 2018-10-18 14:10 | Infectious Diseases Prog Note ---
Assessment/Plan Assessment/Plan ASSESSMENT AND PLAN: 1. MSSA right flank wound infection, s/p I/D - - Ancef - plan on further I/D and wound closure on Friday - monitor labs - will d/w Dr. Chavez regarding length of abx treatment length - MRI noted 2. The patient is status post XLIF L2-L3 as well as posterior spinal fusion. Surgery was done in September. 3. History of low back surgeries and back pain. 4. Diabetes. 5. Hypertension. 6. Questionable dyslipidemia. 7. Gastroesophageal reflux disease. 8. Depression. 9. Obstructive sleep apnea. 10. Anemia. 11. Anxiety. 12. Diabetes and hypertension per primary and Internal Medicine. 13. Allergies to ammonia and ammonium chloride. 14. Social history is negative. 15. Family history is noncontributory. 16. MAR was noted. 17. Case was discussed with RN. 18. Continue treatment per primary consultants. 19. Case discussed with Dr. Chavez and the patient. Subjective Constitutional: Denies: fever HEENT: Denies: congestion Respiratory: Denies: shortness of breath Cardiovascular: Denies: chest pain Gastrointestinal/Abdominal: Denies: nausea, vomiting, diarrhea Genitourinary: Reports: other - no addison Neurologic: Denies: headache Psychiatric: Denies: depression Hematologic: Denies: bleeding Musculoskeletal: Reports: pain - controlled Allergies: Coded Allergies: AMMONIUM CHLORIDE (Verified Allergy, Mild, 09/14/18) LIGHT HEADED Uncoded Allergies: AMMONIA (Adverse Reaction, Severe, 09/14/18) WEAKNESS AND LIGHT HEADED Objective Vital Signs Last 24 Hour Vital Signs Date Time Temp Pulse Resp B/P (MAP) Pulse Ox O2 Delivery O2 Flow Rate FiO2 10/18/18 12:00 98.7 74 21 144/80 (101) 95 10/18/18 08:33 151/82 10/18/18 08:19 Room Air 10/18/18 08:00 99.7 85 20 151/22 (65) 97 10/18/18 00:00 98.5 78 16 126/70 (88) 95 10/17/18 21:00 Room Air 10/17/18 20:00 97.1 62 18 138/86 (103) 98 10/17/18 17:28 135/71 10/17/18 16:00 98.9 80 21 135/71 (92) 95 Height (Feet): 6 Height (Inches): 1.00 Weight (Pounds): 236 General Appearance: no acute distress HEENT: normocephalic, atraumatic, anicteric, mucous membranes moist Respiratory/Chest: lungs clear, normal breath sounds, no respiratory distress, no accessory muscle use Cardiovascular: normal rate, regular rhythm, no gallop/murmur, no JVD Abdomen: normal bowel sounds, soft, non tender, no organomegaly, non distended Genitourinary: other - no addison Extremities: no cyanosis Skin: no rash, other - + wound vac Neurologic/Psychiatric: muffler mechanic II-XII grossly normal, alert, oriented x 3, responsive Lymphatic: no neck adenopathy Musculoskeletal: no effusion Objective MRI - Lumbar spine - Impression: Fluid collection in the right psoas muscle, as described, measuring 13 x 12 x 2 cm in diameter. There is some inflammation extending inferiorly to this but not outside the psoas. Appearance is nonspecific, could represent a routine postoperative fluid collection versus infected fluid collection. Correlate with clinical findings. Fluid collection posterolateral to the left L3 lamina, anterior to the interspinous fusion hardware. Again, possibly representing routine postoperative fluid collection versus infected collection. Generalized edema of the L2 through L4 paraspinous musculature, likely related to recent surgery. 18 x 11 x 25 mm focal fluid collection along the midline incision at the L2 level. This may represent a routine postoperative seroma versus infected collection. Edema of the L2-3 disc and adjacent endplates. Given recent surgery, most likely related to the recent surgery. Discitis/osteomyelitis are not completely excludable, and post contrast imaging may be useful if there is clinical concern for such Other postoperative changes as detailed above Moderate to severe spinal stenosis at L2-3, due to combination of circumferential annular bulge and anterior protrusion of the epidural fat Degenerative changes as detailed above Microbiology Date/Time Source Procedure Growth Status 10/13/18 10:00 Nasal Nares MRSA Culture - Final NO METHICILLIN RESISTANT STAPH AUREUS... Complete 10/14/18 12:45 Incision Anaerobic Culture - Final NO ANAEROBES ISOLATED Complete Microbiology Date/Time Source Procedure Growth Status 10/13/18 10:00 Nasal Nares MRSA Culture - Final NO METHICILLIN RESISTANT STAPH AUREUS... Complete 10/14/18 12:45 Incision Anaerobic Culture - Final NO ANAEROBES ISOLATED Complete wound culture - mssa Labs Test 10/17/18 05:49 White Blood Count 6.5 K/UL (4.8-10.8) Red Blood Count 3.43 M/UL (4.70-6.10) Hemoglobin 11.0 G/DL (14.2-18.0) Hematocrit 31.3 % (42.0-52.0) Mean Corpuscular Volume 91 FL (80-99) Mean Corpuscular Hemoglobin 32.2 PG (27.0-31.0) Mean Corpuscular Hemoglobin Concent 35.3 G/DL (32.0-36.0) Red Cell Distribution Width 11.1 % (11.6-14.8) Platelet Count 198 K/UL (150-450) Mean Platelet Volume 7.5 FL (6.5-10.1) Neutrophils (%) (Auto) 59.6 % (45.0-75.0) Lymphocytes (%) (Auto) 21.6 % (20.0-45.0) Monocytes (%) (Auto) 10.8 % (1.0-10.0) Eosinophils (%) (Auto) 6.8 % (0.0-3.0) Basophils (%) (Auto) 1.2 % (0.0-2.0) Prothrombin Time 10.7 SEC (9.30-11.50) Prothromb Time International Ratio 1.0 (0.9-1.1) Activated Partial Thromboplast Time 28 SEC (23-33) Sodium Level 141 MMOL/L (136-145) Potassium Level 3.5 MMOL/L (3.5-5.1) Chloride Level 106 MMOL/L (98-107) Carbon Dioxide Level 26 MMOL/L (21-32) Anion Gap 9 mmol/L (5-15) Blood Urea Nitrogen 12 mg/dL (7-18) Creatinine 0.7 MG/DL (0.55-1.30) Estimat Glomerular Filtration Rate > 60 mL/min (>60) Glucose Level 116 MG/DL (74-106) Calcium Level 8.3 MG/DL (8.5-10.1) Magnesium Level 1.7 MG/DL (1.8-2.4) Total Bilirubin 0.3 MG/DL (0.2-1.0) Aspartate Amino Transf (AST/SGOT) 22 U/L (15-37) Alanine Aminotransferase (ALT/SGPT) 30 U/L (12-78) Alkaline Phosphatase 120 U/L (46-116) Total Protein 6.7 G/DL (6.4-8.2) Albumin 3.1 G/DL (3.4-5.0) Globulin 3.6 g/dL Albumin/Globulin Ratio 0.9 (1.0-2.7) Current Medications Medications (Trade) Dose Ordered Sig/Unruly Route PRN Reason Start Time Stop Time Status Last Admin Dose Admin Acetaminophen (Tylenol) 650 mg Q4H PRN ORAL headache or temp>101 10/13/18 14:54 11/12/18 14:53 10/18/18 03:01 Cefazolin Sodium 2 gm/Dextrose 55 ml @ 110 mls/hr Q8H IVPB 10/16/18 16:00 10/23/18 15:59 10/18/18 08:01 Dextrose (Dextrose 50%) 25 ml Q30M PRN IV Hypoglycemia 10/13/18 14:54 11/12/18 14:53 Dextrose (Dextrose 50%) 50 ml Q30M PRN IV Hypoglycemia 10/13/18 14:54 11/12/18 14:53 Diphenhydramine HCl (Benadryl) 25 mg Q6H PRN ORAL Itching 10/13/18 18:45 11/12/18 18:44 Docusate Sodium (Colace) 100 mg TWICE A DAY ORAL 10/13/18 18:00 11/12/18 17:59 10/16/18 09:48 Glipizide (Glucotrol) 2.5 mg ACBREAKFAST ORAL 10/16/18 06:30 11/15/18 06:29 10/18/18 07:22 Hydromorphone HCl (Dilaudid) 1 mg Q3HR PRN SUBQ Severe Breakthru Pain (>7) 10/18/18 08:15 10/25/18 08:14 Lactobacillus Acidophilus (Culturelle) 1 tab THREE TIMES A DAY ORAL 10/17/18 18:30 11/16/18 18:29 10/18/18 12:41 Lisinopril (Zestril) 10 mg BID ORAL 10/15/18 09:00 11/14/18 08:59 10/18/18 08:33 Magnesium Hydroxide (Mom) 30 ml DAILYPRN PRN ORAL Constipation 10/17/18 05:45 11/16/18 05:44 Metformin HCl (Glucophage) 1,000 mg BID ORAL 10/15/18 09:00 11/14/18 08:59 10/18/18 08:33 Ondansetron HCl (Zofran) 4 mg Q4H PRN IVP Nausea & Vomiting 10/13/18 18:45 11/12/18 18:44 Oxycodone HCl (Roxicodone) 15 mg Q3H PRN ORAL Moderate Breakthru Pain (5-7) 10/18/18 08:30 10/25/18 08:29 10/18/18 13:27 Paroxetine HCl (Paxil) 40 mg DAILY ORAL 10/14/18 09:00 11/13/18 08:59 10/18/18 08:33 Zolpidem Tartrate (Ambien) 5 mg BEDTIME PRN ORAL Insomnia 10/17/18 05:45 10/24/18 05:44 10/18/18 00:39 Sylvie Palmer MD Oct 18, 2018 14:10
--- NOTE | 2018-10-18 14:18 | Cardiology Progress Note ---
Assessment/Plan Assessment/Plan will add lactobacillus, continue abx Subjective Subjective feels better, has less headache, still worried about c dif colitis, he had normal BM this morning Objective Last 24 Hour Vital Signs Date Time Temp Pulse Resp B/P (MAP) Pulse Ox O2 Delivery O2 Flow Rate FiO2 10/18/18 12:00 98.7 74 21 144/80 (101) 95 10/18/18 08:33 151/82 10/18/18 08:19 Room Air 10/18/18 08:00 99.7 85 20 151/22 (65) 97 10/18/18 00:00 98.5 78 16 126/70 (88) 95 10/17/18 21:00 Room Air 10/17/18 20:00 97.1 62 18 138/86 (103) 98 10/17/18 17:28 135/71 10/17/18 16:00 98.9 80 21 135/71 (92) 95 Intake and Output 10/17/18 10/18/18 18:59 06:59 Intake Total 1060 ml 100 ml Balance 1060 ml 100 ml Intake Oral 750 ml IV Total 310 ml 100 ml # Voids 2 Yaima Rowland MD Oct 18, 2018 14:18
[2018-10-18 16:00] VITALS: BP 138/77
[2018-10-18] MEDS ORDERED: Tubing IV Secondary IV ONE (16:44)
[2018-10-18] MEDS ORDERED: NS 275ml ONE (16:44)
--- NOTE | 2018-10-18 18:56 | NUR ---
NURSE NOTES: stable. in no apparent distress
--- NOTE | 2018-10-18 19:35 | NUR ---
NURSE NOTES: Received report from JOHN Zavala. Patient alert, oriented, sitting up watching tv. No distress noted. R flank dressing intact, wound vac on. Will continue to monitor.
--- NOTE | 2018-10-18 19:35 | NUR ---
HAND-OFF: Report given to Harinder HINES RN.
[2018-10-18 20:00] VITALS: BP 133/77
[2018-10-18] MEDS ORDERED: HYDROmorphone 1mg/ml Carpuject SUBQ PRN (22:00)
[2018-10-19] VITALS (10 sets, daily range): BP systolic 99–151; BP diastolic 29–84
--- NOTE | 2018-10-19 | NUR ---
NURSE NOTES: Patient aware of status NPO after midnight.
[2018-10-19] MEDS: Zolpidem 5mg tab ORAL PRN (00:15)
[2018-10-19] MEDS: ceFAZolin sod 2 GM in D5W 55 ML IVPB SCH ×3 (00:15→18:00)
[2018-10-19] MEDS: HYDROmorphone 1mg/ml Carpuject SUBQ PRN ×6 (01:40→20:05)
[2018-10-19 06:21] LABS: HEMATOCRIT 30.5 % (42.0-52.0); HEMOGLOBIN 10.8 G/DL (14.2-18.0); LYMPHOCYTES % (AUTO) 29.5 % (20.0-45.0); MEAN CORPUSCULAR VOLUME 92 FL (80-99); MONOCYTES % (AUTO) 10.4 % (1.0-10.0); NEUTROPHILS % (AUTO) 54.2 % (45.0-75.0); PLATELET COUNT 192 K/UL (150-450); RED BLOOD COUNT 3.32 M/UL (4.70-6.10); RED CELL DISTRIBUTION WIDTH 11.5 % (11.6-14.8); WHITE BLOOD COUNT 6.4 K/UL (4.8-10.8)
[2018-10-19] MEDS: GlipiZIDE 5mg tab ORAL SCH (06:30)
[2018-10-19 06:41] LABS: ANION GAP 9 mmol/L (5-15); BLOOD UREA NITROGEN 12 mg/dL (7-18); CALCIUM 8.7 MG/DL (8.5-10.1); CARBON DIOXIDE 26 MMOL/L (21-32); CHLORIDE 105 MMOL/L (98-107); CREATININE 0.7 MG/DL (0.55-1.30); POTASSIUM 3.6 MMOL/L (3.5-5.1); SODIUM 140 MMOL/L (136-145)
--- NOTE | 2018-10-19 07:52 | NUR ---
HAND-OFF: Report given to JOHN Florez.
[2018-10-19] MEDS: PARoxetine 20mg tab ORAL SCH (08:29)
[2018-10-19] MEDS: Lactobacillus-GG tablet ORAL SCH ×3 (08:30→18:01)
[2018-10-19] MEDS: Lisinopril 10mg tab ORAL SCH ×2 (08:30→18:01)
[2018-10-19] MEDS: metFORMIN 500mg tab ORAL SCH ×2 (08:32→18:01)
[2018-10-19] MEDS: Docusate 100mg cap ORAL SCH ×2 (08:32→18:00)
--- NOTE | 2018-10-19 09:21 | NUR ---
NURSE NOTES: Patient is alert and oriented X4. Patient reports right flank pain 8/10. Patient able to ambulate. Patient has steady gait. Side rails are up X2, bed is locked, and call light is within reach. Pain medication given. Wound vac is patent. Dressing is intact. Will continue to monitor.
--- NOTE | 2018-10-19 09:39 | NUR ---
NURSE NOTES: New orders received per Dr. Chavez. Orders entered, will carry out.
[2018-10-19] MEDS ORDERED: LR 1000ml 1,000 ML IV SCH (09:45)
[2018-10-19] MEDS ORDERED: NeoSporin Gu Irrig 1ml Amp IRRIG ONE (14:09)
[2018-10-19] MEDS ORDERED: Ropivacaine 5mg/ml Vial 30ml INJ ONE (14:09)
[2018-10-19] MEDS ORDERED: Bacitracin 50000 Units Vial ONE (14:09)
[2018-10-19] MEDS ORDERED: Bupivacaine w/Epi 0.5% 30ml Vial INJ ONE (14:09)
[2018-10-19] MEDS ORDERED: Bupivacaine 0.5% Inj 30 ml vial INJ ONE (14:09)
--- NOTE | 2018-10-19 14:29 | NUR ---
NURSE NOTES: Patient off unit for surgery.\
[2018-10-19] MEDS ORDERED: Tubing IV Secondary IV ONE (14:37)
[2018-10-19] MEDS ORDERED: LR 1000ml ONE ×2 (14:37→14:40)
[2018-10-19] MEDS ORDERED: Sterile Water Irrig 1000ml IRRIG ONE (14:40)
[2018-10-19] MEDS ORDERED: NS Irrig 2000ml IRRIG ONE ×2 (14:40→15:30)
[2018-10-19] MEDS ORDERED: NS Irrig 1000ml ONE (14:40)
[2018-10-19] MEDS ORDERED: fentaNYL 100 mcg/2 mL IV ONE (14:52)
[2018-10-19] MEDS ORDERED: Propofol 200mg/20ml IV ONE (14:52)
[2018-10-19] MEDS ORDERED: Lidocaine 1% MPF 10mg/ml 5ml ONE (14:52)
[2018-10-19] MEDS ORDERED: Midazolam 2mg/2ml Inj ONE (14:53)
[2018-10-19] MEDS ORDERED: Zemuron 50mg/5ml Inj IV ONE (14:54)
--- NOTE | 2018-10-19 14:56 | Pre-Procedure Note/Attestation ---
Pre-Procedure Note/Attestation Complete Prior to Procedure Procedure Narrative: I&D r flank wound with primary wound closure Indications for Procedure Pre-Operative Diagnosis: sp xlif, wound dehiscence r flank wound Attestation I attest that I discussed the nature of the procedure; its benefits; risks and complications; and alternatives (and the risks and benefits of such alternatives ), prior to the procedure, with the patient (or the patient's legal wire rope sales representative). I attest that, if there was a reasonable possibility of needing a blood transfusion, the patient (or the patient's legal wire rope sales representative) was given the [facility] standardized written summary, pursuant to the [place] Blood Safety Act ([place] Health and Safety Code # 1645, as amended). I attest that I re-evaluated the patient just prior to the surgery and that there has been no change in the patient's H&P, except as documented below: Kaden Chavez MD Oct 19, 2018 14:56
--- NOTE | 2018-10-19 14:57 | Brief Operative Note ---
Immediate Post Operative Note Operative Note Pre-op Diagnosis: sp xlif, wound dehiscence r flank wound Procedure: I&D r flank wound, primary wound closure Post-op Diagnosis: same as pre-op Findings: consistent w/pre-op dx studies Surgeon: addison Anesthesiologist: von Anesthesia: general Specimen: yes - prewash cultures Complications: none Condition: stable Fluids: 400 Estimated Blood Loss: minimal Drains: none Implant(s) used?: No Kaden Chavez MD Oct 19, 2018 14:57
[2018-10-19] MEDS ORDERED: LR 1000ml 1,000 ML IVLG SCH (15:16)
[2018-10-19] MEDS ORDERED: DiphenhydrAMINE 50mg/ml Inj IVP PRN (15:30)
[2018-10-19] MEDS ORDERED: Midazolam 2mg/2ml Inj IVP PRN (15:30)
[2018-10-19] MEDS ORDERED: Hydromorphone 0.5mg/0.5ml inj IVP PRN (15:30)
[2018-10-19] MEDS ORDERED: LORazepam Inj 2mg/ml 1ml IV PRN (15:30)
[2018-10-19] MEDS ORDERED: fentaNYL 100 mcg/2 mL IV PRN (15:30)
--- NOTE | 2018-10-19 15:59 | Immediate Post-Op Evaluation ---
Immediate Post-Op Evalulation Immediate Post-Op Evalulation Procedure: I&D of R lumbar surgical wound with woundvac placement Date of Evaluation: Oct 19, 2018 Time of Evaluation: 16:01 IV Fluids: 400 Blood Products: 0 Estimated Blood Loss: min Urinary Output: 0 Blood Pressure Systolic: 101 Blood Pressure Diastolic: 58 Pulse Rate: 73 Respiratory Rate: 16 O2 Sat by Pulse Oximetry: 95 Temperature (Fahrenheit): 98.1 Pain Score (1-10): 0 Nausea: No Vomiting: No Complications 0 Patient Status: awake, reacts, patent, none Hydration Status: adequate Drug: Ancef Given Within 1 Hr of Incision: Yes Abby Alejandro MD Oct 19, 2018 15:59
[2018-10-19] MEDS ORDERED: Milk of Magnesia 30ml Ud ORAL PRN (16:00)
--- NOTE | 2018-10-19 17:47 | NUR ---
NURSE NOTES: Patient returned to unit s/p surgery. Vital signs stable. Patient reported pain 9/10 on right flank. Pain medication given. Will continue to monitor.
[2018-10-19] MEDS: D5 1/2NS 1,000 ML IV SCH (18:00)
[2018-10-19] MEDS: oxyCODONE 15mg IR tab ORAL PRN ×2 (18:01→22:26)
--- NOTE | 2018-10-19 19:26 | NUR ---
HAND-OFF: Report given to JOHN Guillen.
--- NOTE | 2018-10-19 20:03 | Cardiology Progress Note ---
Assessment/Plan Assessment/Plan 1. Diabetes mellitus. 2. Hypertension. 3. Hyperlipidemia. 4. Right flank wound infection/dehiscence, status post I and D I&D r flank wound, primary wound closure lab noted on metformin will hold low dose glipizide until eat a good diet ambulating pain controlled dvt ppx IS Subjective Cardiovascular: Denies: chest pain, lightheadedness, palpitations, syncope Respiratory: Denies: shortness of breath Gastrointestinal/Abdominal: Denies: abdominal pain Genitourinary: Denies: burning Objective Last 24 Hour Vital Signs Date Time Temp Pulse Resp B/P (MAP) Pulse Ox O2 Delivery O2 Flow Rate FiO2 10/19/18 18:01 157/60 10/19/18 16:25 76 16 124/74 98 Nasal Cannula 3 10/19/18 16:16 75 16 123/68 98 Nasal Cannula 3 73 10/19/18 16:05 72 16 105/60 99 Simple Mask 5 73 10/19/18 16:00 71 16 99/55 99 Simple Mask 5 73 10/19/18 15:59 73 16 95 10/19/18 15:56 98.1 73 16 101/58 99 Simple Mask 5 73 10/19/18 12:00 98.7 70 18 147/29 (68) 94 10/19/18 08:30 127/73 10/19/18 08:00 Room Air 10/19/18 08:00 96.4 65 20 127/73 (91) 96 10/19/18 04:00 97.8 82 20 151/84 (106) 10/19/18 00:31 98.0 76 18 126/70 (88) 98 10/18/18 21:00 Room Air General Appearance: alert Neck: supple Cardiovascular: normal rate, regular rhythm Respiratory/Chest: lungs clear Abdomen: normal bowel sounds, non tender, soft Extremities: no swelling Intake and Output 10/18/18 10/19/18 19:00 07:00 Intake Total 1070 ml Output Total 1 ml Balance 1069 ml Intake Oral 960 ml IV Total 110 ml Stool Total 1 ml Drainage Total 0 ml Laboratory Tests Test 10/19/18 04:55 White Blood Count 6.4 K/UL (4.8-10.8) Red Blood Count 3.32 M/UL (4.70-6.10) L Hemoglobin 10.8 G/DL (14.2-18.0) L Hematocrit 30.5 % (42.0-52.0) L Mean Corpuscular Volume 92 FL (80-99) Mean Corpuscular Hemoglobin 32.4 PG (27.0-31.0) H Mean Corpuscular Hemoglobin Concent 35.4 G/DL (32.0-36.0) Red Cell Distribution Width 11.5 % (11.6-14.8) L Platelet Count 192 K/UL (150-450) Mean Platelet Volume 7.7 FL (6.5-10.1) Neutrophils (%) (Auto) 54.2 % (45.0-75.0) Lymphocytes (%) (Auto) 29.5 % (20.0-45.0) Monocytes (%) (Auto) 10.4 % (1.0-10.0) H Eosinophils (%) (Auto) 5.0 % (0.0-3.0) H Basophils (%) (Auto) 1.0 % (0.0-2.0) Sodium Level 140 MMOL/L (136-145) Potassium Level 3.6 MMOL/L (3.5-5.1) Chloride Level 105 MMOL/L (98-107) Carbon Dioxide Level 26 MMOL/L (21-32) Anion Gap 9 mmol/L (5-15) Blood Urea Nitrogen 12 mg/dL (7-18) Creatinine 0.7 MG/DL (0.55-1.30) Estimat Glomerular Filtration Rate > 60 mL/min (>60) Glucose Level 128 MG/DL (74-106) H Calcium Level 8.7 MG/DL (8.5-10.1) Sebastian Rodriguez MD Oct 19, 2018 20:03
--- NOTE | 2018-10-19 20:15 | Operative Note - Dictated ---
DATE OF OPERATION: 10/19/2018 SURGEON: Kaden Chavez M.D. PLUNGER SCOOP OPERATOR: None. ANESTHESIOLOGIST: Dr. Mata. ANESTHESIA TYPE: General endotracheal anesthesia. PREOPERATIVE DIAGNOSIS: Status post XLIF procedure with right flank wound infection. POSTOPERATIVE DIAGNOSIS: Status post XLIF procedure with right flank wound infection. PROCEDURES: 1. I and D right flank wound. 2. Primary wound closure. ESTIMATED BLOOD LOSS: Minimal. COMPLICATIONS: None. FLUIDS: 400 mL. FINDINGS: Healthy and clean granulation bed. INDICATIONS: The patient is a very pleasant gentleman, who previously had undergone a right-sided XLIF procedure followed by posterior spinal fusion. The right flank wound dehisced requiring urgent I and D and washout. He had, had a wound VAC for last several days. Upon inspection, the wound appeared clean and ready for primary closure. RISK NOTE: The patient was explained in detail risks and benefits of surgery to include, but not be limited to those of bleeding, infection, damage to nerves, vessels, tendons, anesthetic risk, allergic reaction, aspiration, possibly . The patient understood and wished to proceed. OPERATIVE PROCEDURE IN DETAIL: The patient was taken to the operative suite. After general endotracheal anesthesia was obtained, he was turned left side down lateral decubitus. The wound VAC was removed. The right flank was prepped and draped in usual sterile fashion. [place] cultures were obtained immediately. At this point, a curettage of the wound edges was performed down to healthy granulating tissue. Copious irrigation was performed using 2 liters of triple antibiotic pulse lavage. At this point, gloves were changed. Instruments were changed. The plan was to proceed with primary wound closure, which was performed using 2-0 and 3-0 PDS subcutaneous and 4-0 Monocryl running. Steri-Strips were applied. Sterile dressing was applied. The patient was then turned onto his back, awakened, and transferred to recovery room. Sponge and needle counts were correct. Estimated blood loss minimal. Kaden Chavez M.D. DR: RAVI JOB#: [id number] CC:
--- NOTE | 2018-10-19 21:28 | NUR ---
NURSE NOTES: Patient is in bed, aaox4. VSS, no shortness of breath. Dilaudid subQ given for pain of 7/10 right flank. IV site patent with fluids running. Dressing right flank intact, partial stain, will continue to monitor. Tolerating full liquid diet, no n/v. Bed low, call light within reach.
--- NOTE | 2018-10-19 22:30 | Progress Note ---
DATE: 10/19/2018 ACUTE PAIN MANAGEMENT PHYSICIAN PROGRESS NOTE MEDICATIONS: Medication administration record reviewed. Medications include IV fluids, Colace, Glucotrol, Glucophage, Zestril, Paxil, antibiotics, lactobacillus. P.r.n. medications include Benadryl, Zofran, milk of magnesia, Ambien, Dilaudid, oxycodone 15 mg, and Tylenol. Laboratory studies from this morning, preop 10/19/2018 shows white count 6, hematocrit 31, and platelets 192,000. Sodium 140, potassium 3.6, chloride 105, bicarb 26, BUN 12, creatinine 0.7, glucose 128, and calcium 8.7. Coagulation studies from 10/17/2018 shows INR 1.0 and PTT 28. Vital signs, afebrile. Pulse 76, respirations 16, blood pressure 124/74, and oxygen saturation 98% on room air. I saw the patient at the bedside with the nurse RN, Vikki. We are placing a front wheel walker at the bedside to encourage the patient to ambulate. The patient had a revision surgery today by Dr. Kaden Chavez with an incision and drainage of the right flank wound and primary wound closure. The patient feels good postoperatively. We have already begun alternating doses of subcutaneous Dilaudid with oral oxycodone for excellent analgesic effect. The patient denies any shortness of breath or chest pain and is able to stand up out of bed with good posture already. The patient agrees with my plan to quickly wean off the parental Dilaudid over the next 18 hours. I already left a prescription for Percocet for outpatient usage. Infectious Disease continues to monitor the patient and adjust antibiotic dosing. Rishabh Knight M.D. DR: CORETTA JOB#: [id number] CC:
[2018-10-20] VITALS: BP 135/76
[2018-10-20] MEDS: ceFAZolin sod 2 GM in D5W 55 ML IVPB SCH ×2 (00:09→07:55)
[2018-10-20] MEDS: Zolpidem 5mg tab ORAL PRN (00:09)
[2018-10-20] MEDS: D5 1/2NS 1,000 ML IV SCH ×2 (01:48→11:48)
[2018-10-20] MEDS: HYDROmorphone 1mg/ml Carpuject SUBQ PRN ×2 (01:48→05:49)
[2018-10-20] MEDS: oxyCODONE 15mg IR tab ORAL PRN ×2 (03:34→10:49)
[2018-10-20 04:00] VITALS: BP 144/75
[2018-10-20] MEDS: GlipiZIDE 5mg tab ORAL SCH (05:48)
--- NOTE | 2018-10-20 07:35 | NUR ---
HAND-OFF: Report given to JOHN Zavala. Patient stable.
[2018-10-20] MEDS ORDERED: D5 1/2NS 1000ml IV ONE (07:38)
--- NOTE | 2018-10-20 07:39 | NUR ---
NURSE NOTES: AWAKE/ALERT. PAIN SCALE 4/10. RT FLANK DRESSING DRY AND INTACT. IN NO ACUTE DISTRESS.
[2018-10-20 08:00] VITALS: BP 134/73
--- NOTE | 2018-10-20 08:29 | 48 Hour Post Anesthesia Eval ---
Post Anesthesia Evaluation Procedure: I&D of R lumbar surgical wound with woundvac placement Date of Evaluation: Oct 20, 2018 Time of Evaluation: 06:31 Blood Pressure Systolic: 134 0: 73 Pulse Rate: 77 Respiratory Rate: 18 Temperature (Fahrenheit): 98.2 O2 Sat by Pulse Oximetry: 97 Airway: patent Nausea: No Vomiting: No Pain Intensity: 3 Hydration Status: adequate Cardiopulmonary Status: Stable Mental Status/LOC: patient returned to baseline Follow-up Care/Observations: 0 Post-Anesthesia Complications: 0 Follow-up care needed: N/A Silverio Triplett MD Oct 20, 2018 08:29
[2018-10-20] MEDS: metFORMIN 500mg tab ORAL SCH (08:54)
[2018-10-20] MEDS: Lactobacillus-GG tablet ORAL SCH ×2 (08:55→12:58)
[2018-10-20] MEDS: PARoxetine 20mg tab ORAL SCH (08:55)
[2018-10-20] MEDS: Docusate 100mg cap ORAL SCH (08:55)
[2018-10-20] MEDS: Lisinopril 10mg tab ORAL SCH (09:15)
--- NOTE | 2018-10-20 09:37 | NUR ---
NURSE NOTES: DR BABIN AND DR ROSEN CALLED RE pT'S CLEARANCE TO GO HOME. LEFT MESSAGE TO RETURN CALL.
[2018-10-20] MEDS ORDERED: CEPHALEXIN500 MG ORAL (11:04)
--- NOTE | 2018-10-20 11:38 | NUR ---
P.T NOTE: P.T RE EVALUATION COMPLETED. PATIENT REMAINED AT BASELINE INDEPENDENT WITH ADL/FUNCTIONAL MOBILITIES AND GAIT/AMBULATION ACTIVITIES S/P I AND D AND R FLANK WOUND CLOSURE. CURRENT FUNCTIONAL STATUS DOES NOT WARRANT SKILLED P.T SERVICES AT THIS TIME.CONTINUE TO ENCOURAGE PATIENT OOB ACTIVITIES DURING STAY VS BEDREST (UNLESS ORDERED ) TO PREVENT DECONDITIONING DURING STAY. PATIENT VERBALIZED UNDERSTANDING. D/C P.T SERVICES. THANK YOU FOR THIS REFERRAL. Addendum: 10/20/18 at 1139 by GANESH ALONSO PT Amended: Links added.
[2018-10-20 12:00] VITALS: BP 157/75
--- NOTE | 2018-10-20 12:29 | Orthopedic Spine Progress Note ---
Ortho Spine - Progress Note Subjective Symptoms: c/o post-op back pain, improved - as compared to pre-op Objective Vital Signs: Last 24 Hour Vital Signs Date Time Temp Pulse Resp B/P (MAP) Pulse Ox O2 Delivery O2 Flow Rate FiO2 10/20/18 09:15 139/73 10/20/18 08:29 77 18 97 10/20/18 08:09 Room Air Room Air 10/20/18 08:00 98.2 77 18 134/73 (93) 97 10/20/18 04:00 97.7 66 18 144/75 (98) 96 10/20/18 00:00 98.0 69 18 135/76 (95) 98 10/19/18 21:00 Room Air Room Air 10/19/18 20:00 98.4 75 18 129/71 (90) 94 10/19/18 18:01 157/60 10/19/18 16:25 76 16 124/74 98 Nasal Cannula 3 10/19/18 16:16 75 16 123/68 98 Nasal Cannula 3 73 10/19/18 16:05 72 16 105/60 99 Simple Mask 5 73 10/19/18 16:00 71 16 99/55 99 Simple Mask 5 73 10/19/18 15:59 73 16 95 10/19/18 15:56 98.1 73 16 101/58 99 Simple Mask 5 73 I&O: Intake and Output 10/19/18 10/20/18 19:00 07:00 Intake Total 500 ml 1440 ml Output Total 450 ml Balance 50 ml 1440 ml Intake Oral 240 ml IV Total 500 ml 1200 ml Output Urine Total 450 ml # Voids 5 # Bowel Movements 2 Wound: clean, intact Drains: none Neuro Status: normal Assessment Procedure Performed: I&D r flank wound, primary wound closure Plan Plan: PT, pain management, discharge plan Additional Comments: keflex for home Kaden Chavez MD Oct 20, 2018 12:29
--- NOTE | 2018-10-20 14:01 | Cardiology Progress Note ---
Assessment/Plan Assessment/Plan 1. Diabetes mellitus. 2. Hypertension. 3. Hyperlipidemia. 4. Right flank wound infection/dehiscence, status post I and D dc summary dicated [id number] Objective Last 24 Hour Vital Signs Date Time Temp Pulse Resp B/P (MAP) Pulse Ox O2 Delivery O2 Flow Rate FiO2 10/20/18 12:00 97.9 72 19 157/75 (102) 96 10/20/18 09:15 139/73 10/20/18 08:29 77 18 97 10/20/18 08:09 Room Air Room Air 10/20/18 08:00 98.2 77 18 134/73 (93) 97 10/20/18 04:00 97.7 66 18 144/75 (98) 96 10/20/18 00:00 98.0 69 18 135/76 (95) 98 10/19/18 21:00 Room Air Room Air 10/19/18 20:00 98.4 75 18 129/71 (90) 94 10/19/18 18:01 157/60 10/19/18 16:25 76 16 124/74 98 Nasal Cannula 3 10/19/18 16:16 75 16 123/68 98 Nasal Cannula 3 73 10/19/18 16:05 72 16 105/60 99 Simple Mask 5 73 10/19/18 16:00 71 16 99/55 99 Simple Mask 5 73 10/19/18 15:59 73 16 95 10/19/18 15:56 98.1 73 16 101/58 99 Simple Mask 5 73 Intake and Output 10/19/18 10/20/18 18:59 06:59 Intake Total 400 ml 1440 ml Output Total 450 ml Balance -50 ml 1440 ml Intake Oral 240 ml IV Total 400 ml 1200 ml Output Urine Total 450 ml # Voids 5 # Bowel Movements 2 Microbiology Date/Time Source Procedure Growth Status 10/19/18 15:30 Tissue Gram Stain - Final Resulted 10/19/18 15:30 Tissue Aerobic Culture - Preliminary NO GROWTH AFTER 24 HOURS Resulted Sebastian Rodriguez MD Oct 20, 2018 14:01
--- NOTE | 2018-10-20 14:42 | NUR ---
NURSE NOTES: DISCHARGED HOME ACCPD BY FRIEND IN STABLE CONDITION. DC INSTRUCTIONS AND RX GIVEN.
--- NOTE | 2018-10-20 14:42 | Infectious Diseases Prog Note ---
Assessment/Plan Assessment/Plan ASSESSMENT AND PLAN: 1. MSSA right flank wound infection, s/p I/D - - Ancef - change to oral keflex x 2 weeks - plan on further I/D and wound closure on Friday - monitor labs - will d/w Dr. Chavez regarding length of abx treatment length - MRI noted - report noted, communicated with Dr. Chavez and no definitive vertebral osteo/discitis - d/w Dr. Rodriguez 2. The patient is status post XLIF L2-L3 as well as posterior spinal fusion. Surgery was done in September. 3. History of low back surgeries and back pain. 4. Diabetes. 5. Hypertension. 6. Questionable dyslipidemia. 7. Gastroesophageal reflux disease. 8. Depression. 9. Obstructive sleep apnea. 10. Anemia. 11. Anxiety. 12. Diabetes and hypertension per primary and Internal Medicine. 13. Allergies to ammonia and ammonium chloride. 14. Social history is negative. 15. Family history is noncontributory. 16. MAR was noted. 17. Case was discussed with RN. 18. Continue treatment per primary consultants. 19. Case discussed with Dr. Chavez and the patient. Subjective Constitutional: Denies: fever HEENT: Denies: congestion Respiratory: Denies: shortness of breath Cardiovascular: Denies: chest pain Gastrointestinal/Abdominal: Denies: nausea Genitourinary: Denies: dysuria, hematuria Neurologic: Denies: headache Psychiatric: Denies: depression Skin: Denies: rash Hematologic: Denies: bleeding Musculoskeletal: Denies: pain Allergies: Coded Allergies: AMMONIUM CHLORIDE (Verified Allergy, Mild, 09/14/18) LIGHT HEADED Uncoded Allergies: AMMONIA (Adverse Reaction, Severe, 09/14/18) WEAKNESS AND LIGHT HEADED Objective Vital Signs Last 24 Hour Vital Signs Date Time Temp Pulse Resp B/P (MAP) Pulse Ox O2 Delivery O2 Flow Rate FiO2 10/20/18 12:00 97.9 72 19 157/75 (102) 96 10/20/18 09:15 139/73 10/20/18 08:29 77 18 97 10/20/18 08:09 Room Air Room Air 10/20/18 08:00 98.2 77 18 134/73 (93) 97 10/20/18 04:00 97.7 66 18 144/75 (98) 96 10/20/18 00:00 98.0 69 18 135/76 (95) 98 10/19/18 21:00 Room Air Room Air 10/19/18 20:00 98.4 75 18 129/71 (90) 94 10/19/18 18:01 157/60 10/19/18 16:25 76 16 124/74 98 Nasal Cannula 3 10/19/18 16:16 75 16 123/68 98 Nasal Cannula 3 73 10/19/18 16:05 72 16 105/60 99 Simple Mask 5 73 10/19/18 16:00 71 16 99/55 99 Simple Mask 5 73 10/19/18 15:59 73 16 95 10/19/18 15:56 98.1 73 16 101/58 99 Simple Mask 5 73 Height (Feet): 6 Height (Inches): 1.00 Weight (Pounds): 236 General Appearance: no acute distress HEENT: normocephalic, atraumatic, anicteric, mucous membranes moist Respiratory/Chest: lungs clear, normal breath sounds, no respiratory distress, no accessory muscle use Cardiovascular: normal rate, regular rhythm, no gallop/murmur, no JVD Abdomen: normal bowel sounds, soft, non tender, no organomegaly, non distended Genitourinary: other - no addison Extremities: no cyanosis Skin: no rash 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 There is some inflammation extending inferiorly to this but not outside the psoas. Appearance is nonspecific, could represent a routine postoperative fluid collection versus infected fluid collection. Correlate with clinical findings. Fluid collection posterolateral to the left L3 lamina, anterior to the interspinous fusion hardware. Again, possibly representing routine postoperative fluid collection versus infected collection. Generalized edema of the L2 through L4 paraspinous musculature, likely related to recent surgery. 18 x 11 x 25 mm focal fluid collection along the midline incision at the L2 level. This may represent a routine postoperative seroma versus infected collection. Edema of the L2-3 disc and adjacent endplates. Given recent surgery, most likely related to the recent surgery. Discitis/osteomyelitis are not completely excludable, and post contrast imaging may be useful if there is clinical concern for such Other postoperative changes as detailed above Moderate to severe spinal stenosis at L2-3, due to combination of circumferential annular bulge and anterior protrusion of the epidural fat Degenerative changes as detailed above Microbiology Date/Time Source Procedure Growth Status 10/13/18 10:00 Nasal Nares MRSA Culture - Final NO METHICILLIN RESISTANT STAPH AUREUS... Complete 10/19/18 15:30 Tissue Gram Stain - Final Resulted 10/19/18 15:30 Tissue Aerobic Culture - Preliminary NO GROWTH AFTER 24 HOURS Resulted Microbiology Date/Time Source Procedure Growth Status 10/19/18 15:30 Tissue Gram Stain - Final Resulted 10/19/18 15:30 Tissue Aerobic Culture - Preliminary NO GROWTH AFTER 24 HOURS Resulted Labs Test 10/19/18 04:55 White Blood Count 6.4 K/UL (4.8-10.8) Red Blood Count 3.32 M/UL (4.70-6.10) Hemoglobin 10.8 G/DL (14.2-18.0) Hematocrit 30.5 % (42.0-52.0) Mean Corpuscular Volume 92 FL (80-99) Mean Corpuscular Hemoglobin 32.4 PG (27.0-31.0) Mean Corpuscular Hemoglobin Concent 35.4 G/DL (32.0-36.0) Red Cell Distribution Width 11.5 % (11.6-14.8) Platelet Count 192 K/UL (150-450) Mean Platelet Volume 7.7 FL (6.5-10.1) Neutrophils (%) (Auto) 54.2 % (45.0-75.0) Lymphocytes (%) (Auto) 29.5 % (20.0-45.0) Monocytes (%) (Auto) 10.4 % (1.0-10.0) Eosinophils (%) (Auto) 5.0 % (0.0-3.0) Basophils (%) (Auto) 1.0 % (0.0-2.0) Sodium Level 140 MMOL/L (136-145) Potassium Level 3.6 MMOL/L (3.5-5.1) Chloride Level 105 MMOL/L (98-107) Carbon Dioxide Level 26 MMOL/L (21-32) Anion Gap 9 mmol/L (5-15) Blood Urea Nitrogen 12 mg/dL (7-18) Creatinine 0.7 MG/DL (0.55-1.30) Estimat Glomerular Filtration Rate > 60 mL/min (>60) Glucose Level 128 MG/DL (74-106) Calcium Level 8.7 MG/DL (8.5-10.1) Current Medications Medications (Trade) Dose Ordered Sig/Unruly Route PRN Reason Start Time Stop Time Status Last Admin Dose Admin Acetaminophen (Tylenol) 650 mg Q4H PRN ORAL headache or temp>101 10/19/18 16:00 11/18/18 15:59 Cefazolin Sodium 2 gm/Dextrose 55 ml @ 110 mls/hr Q8H IVPB 10/16/18 16:00 10/23/18 15:59 10/20/18 07:55 Dextrose (Dextrose 50%) 25 ml Q30M PRN IV Hypoglycemia 10/13/18 14:54 11/12/18 14:53 Dextrose (Dextrose 50%) 50 ml Q30M PRN IV Hypoglycemia 10/13/18 14:54 11/12/18 14:53 Dextrose/Sodium Chloride 1,000 ml @ 100 mls/hr Q10H IV 10/19/18 15:48 11/18/18 15:47 10/20/18 01:48 Diphenhydramine HCl (Benadryl) 25 mg Q6H PRN ORAL Itching 10/13/18 18:45 11/12/18 18:44 Docusate Sodium (Colace) 100 mg TWICE A DAY ORAL 10/19/18 18:00 11/18/18 17:59 Glipizide (Glucotrol) 2.5 mg ACBREAKFAST ORAL 10/16/18 06:30 11/15/18 06:29 10/20/18 05:48 Hydromorphone HCl (Dilaudid) 1 mg Q3HR PRN SUBQ Severe Breakthru Pain (>7) 10/18/18 08:15 10/25/18 08:14 10/20/18 05:49 Lactobacillus Acidophilus (Culturelle) 1 tab THREE TIMES A DAY ORAL 10/17/18 18:30 11/16/18 18:29 10/20/18 12:58 Lisinopril (Zestril) 10 mg BID ORAL 10/15/18 09:00 11/14/18 08:59 10/20/18 09:15 Magnesium Hydroxide (Mom) 30 ml DAILYPRN PRN ORAL Constipation 10/17/18 05:45 11/16/18 05:44 Magnesium Hydroxide (Mom) 30 ml QIDPRN PRN ORAL Constipation 10/19/18 16:00 11/18/18 15:59 Metformin HCl (Glucophage) 1,000 mg BID ORAL 10/15/18 09:00 11/14/18 08:59 10/20/18 08:54 Ondansetron HCl (Zofran) 4 mg Q4H PRN IVP Nausea & Vomiting 10/13/18 18:45 11/12/18 18:44 Oxycodone HCl (Roxicodone) 15 mg Q3H PRN ORAL Moderate Breakthru Pain (5-7) 10/19/18 10:45 10/25/18 08:29 10/20/18 10:49 Paroxetine HCl (Paxil) 40 mg DAILY ORAL 10/14/18 09:00 11/13/18 08:59 10/20/18 08:55 Zolpidem Tartrate (Ambien) 5 mg BEDTIME PRN ORAL Insomnia 10/17/18 05:45 10/24/18 05:44 10/20/18 00:09 Sylvie Palmer MD Oct 20, 2018 14:42
--- NOTE | 2018-10-20 21:45 | Progress Note ---
ACUTE PAIN MANAGEMENT PHYSICIAN PROGRESS NOTE MEDICATIONS: Medication administration record reviewed. Medications include Tylenol, Oxycodone, Dilaudid, Ambien, milk of magnesia, Zofran, Benadryl, lactobacillus, antibiotics, Paxil, Zestril, Glucophage, Glucotrol, and Colace. LABORATORY DATA: Laboratory studies from yesterday, 10/19/2018, shows white count 6, hematocrit 31, and platelets 192,000. OBJECTIVE: VITAL SIGNS: Afebrile, pulse 72, respirations 19, blood pressure 139/73, and oxygen saturation 96% on room air. I discussed the case with the nurse RN, Sally and the surgeon, Dr. Chavez. The patient is ambulating well. He is tolerating his pain off of parenteral narcotics and I did leave a prescription for Percocet quantity of 90, 10/325 mg for outpatient usage. The patient is afebrile and Dr. Chavez has cleared the patient for discharge from the surgical perspective, I agree with discharge trial home at this time. Rishabh Knight M.D. DR: CORETTA JOB#: [id number] CC:
--- NOTE | 2018-10-21 04:00 | Discharge Summary ---
DATE OF ADMISSION: 10/13/2018 DATE OF DISCHARGE: 10/20/2018 DISCHARGE DIAGNOSES: 1. Right flank wound infection and dehiscence. 2. Diabetes mellitus. 3. Hypertension. 4. Hyperlipidemia. HISTORY: This patient was admitted to the hospital because of wound dehiscence. He was treated with a course of intravenous antibiotics after being evaluated by Dr. Palmer from Infectious Disease. The patient was followed by Dr. Chavez and eventually underwent incision and drainage of the right flank wound with primary wound closure on 10/19/2018. It was felt that the patient was okay to be discharged on 10/20/2018 and this was ordered. The patient will be discharged home with 2 weeks of Keflex 500 mg 4 times a day with specific instructions to follow up with Dr. Chavez. On the day of discharge, the patient was doing well. No chest pain, shortness of breath, dizziness, or lightheadedness. His blood pressure was 139/73 to 157/75, heart rate in 70s, and temperature 97.2. Lungs were clear to auscultation and percussion. Cardiac examination, regular rate and rhythm. No heaves or thrills noted. Abdomen is soft. Extremities, no edema. Neurologically, he is awake, alert, and responsive. The patient will be discharged home on his usual medications in addition to the Keflex for 2 weeks four times a day. Sebastian Rodriguez M.D. DR: JOS JOB#: [id number] CC:
--- NOTE | 2018-10-23 13:50 | Discharge Summary ---
Discharge Summary Hospital Course Date of Admission Oct 13, 2018 at 09:01 Date of Discharge Oct 20, 2018 at 15:00 Admitting Diagnosis s/ p XLIF, wound dehiscence R flank wound Reason for Hospitalization: Elective surgery HPI Joe Pritchard is a 57 year old male who was admitted on Oct 13, 2018 at 09:01 for S/P Xlif And Posterior Spinal Fusion With Decompre Consultations Dr. 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 Knight-pain specialist Dr. Palmer- ID specialist Procedures s/p 10/13/[address] Chavez 1. I and D, right flank. 2. Application of wound VAC s/p 10/19/[address] Chavez I and D right flank wound. 2. Primary wound closure. Hospital Course FINAL DIAGNOSES status post fusion XLIF L2-L3 as well as posterior spinal fusion. Wound dehiscence, right flank status post I and D, right flank with application of wound VAC. Discharge Medications Continued Medications: Cephalexin* (Keflex*) 500 Mg Capsule 500 MG ORAL QID for 14 Days, #14 CAP 0 Refills (This prescription has been renewed) Metformin Hcl* (Metformin Hcl*) 500 Mg Tablet 500 MG ORAL TWICE A DAY, TAB (This prescription has been renewed) Paroxetine Hcl (Paxil) 40 Mg Tablet 40 MG ORAL DAILY, #30 TAB 0 Refills Simvastatin (Zocor) 40 Mg Tablet 40 MG ORAL BEDTIME, TAB Telmisartan/Hydrochlorothiazid (Micardis Hct 80-12.5 Mg Tablet) 1 Each Tablet 1 TAB ORAL DAILY, TAB Zolpidem Tartrate* (Ambien*) 10 Mg Tablet 10 MG ORAL BEDTIME PRN for Insomnia, TAB 0 Refills Discharge Condition Upon Discharge: stable Discharge Disposition Patient was discharged to Home () Discharge Instructions Discharge Instructions Special Instructions I have been assigned to complete a D/C Summary on this account. I was not involved in the patient management Alexandra Duran NP Oct 23, 2018 13:50
== END 2018-10-20 15:00 | disposition home or self-care (01) | DRG 908 ==
LOC: SDSOVERFLO 09:01 → 3E 14:30
PROC: 2W15X6Z Compression of Back using Pressure Dressing (ICD-10-PCS; principal; 2018-10-13 10:30)
PROC: 0J970ZZ Drainage of Back Subcutaneous Tissue and Fascia, Open Approach (ICD-10-PCS; principal; 2018-10-13 10:30)
PROC: 2W55X6Z Removal of Pressure Dressing on Back (ICD-10-PCS; 2018-10-19)
PROC: 0J970ZZ Drainage of Back Subcutaneous Tissue and Fascia, Open Approach (ICD-10-PCS; 2018-10-19)
DX: T81.31XA Disruption of external operation (surgical) wound, not elsewhere classified, initial encounter (principal); L76.34 Postprocedural seroma of skin and subcutaneous tissue following other procedure; T81.42XA Infection following a procedure, deep incisional surgical site, initial encounter; I10 Essential (primary) hypertension; E78.5 Hyperlipidemia, unspecified; G47.33 Obstructive sleep apnea (adult) (pediatric); F32.9 Major depressive disorder, single episode, unspecified; F41.9 Anxiety disorder, unspecified; D64.9 Anemia, unspecified; R51 Headache; R19.7 Diarrhea, unspecified; G89.18 Other acute postprocedural pain
CPT/HCPCS: 36415; 72148; 80048; 80053; 80202; 81001; 82962; 83036; 83735; 85025; 85610; 85730; 86850; 86900; 86901; 87070; 87075; 87081; 87181; 87205; 94003; 94150; J1815; J2250